=== PATIENT | female | born 1970 | race Caucasian/White ===

== ENCOUNTER 2017-01-11 22:32 | Inpatient (IN) | payer BC, OTHER ==
[~2017-01-11] VITALS: Ht 167.6 cm; Wt 91.0 kg
[~2017-01-11 22:32] MED LIST: AMLO1TAB93 PO; ASPI-535 PO; CLOP75TA27 PO; CRES10 PO; FENO145T25 PO; LANT3I SC; METF500T PO; NOVO3I SC; SITA50TA2 PO
[2017-01-12] VITALS (14 sets, daily range): BP systolic 116–189; BP diastolic 56–100; PULSE 67–80; RESP 16–18; TEMP 97.8; Ht 167.6 cm; Wt 91.0 kg
[2017-01-12] MEDS ORDERED: NITROGLYCERIN 2% 1 GM OINT PKT TD STA (01:43)
[2017-01-12] MEDS ORDERED: LORAZEPAM 2 MG INJ IV ONE ×2 (02:30→12:00)
[2017-01-12 02:35] LABS: BASOPHILS % 0.5 % (0.0-2.0); EOSINOPHILS # 0.1 10^3/ul (0.0-0.5); EOSINOPHILS % 0.9 % (0.0-7.0); HEMATOCRIT 42.9 % (37.0-47.0); HEMOGLOBIN 14.7 g/dl (12.0-16.0); LYMPHOCYTES # 1.5 10^3/ul (0.8-2.9); LYMPHOCYTES % 23.6 % (15.0-51.0); MEAN CORPUSCULAR HEMOGLOBIN 27.3 pg (29.0-33.0); MEAN CORPUSCULAR HGB CONC 34.2 g/dl (32.0-37.0); MEAN CORPUSCULAR VOLUME 79.8 fl (82.0-101.0); MEAN PLATELET VOLUME 10.4 fl (7.4-10.4); MONOCYTE # 0.4 10^3/ul (0.3-0.9); MONOCYTES % 6.6 % (0.0-11.0); NEUTROPHIL # 4.4 10^3/ul (1.6-7.5); NEUTROPHILS % 68.4 % (39.0-77.0); PLATELET COUNT 196 10^3/UL (140-440); RED BLOOD COUNT 5.38 10^6/ul (4.20-5.40); RED CELL DISTRIBUTION WIDTH 12.4 % (11.5-14.5); UNCORRECTED WBC 6.4 10^3/ul (4.8-10.8); WHITE BLOOD COUNT 6.4 10^3/ul (4.8-10.8)
[2017-01-12 02:42] LABS: INR 0.95; PROTIME 12.7 Sec (12.2-14.2)
[2017-01-12 02:43] LABS: ALBUMIN 3.1 g/dl (3.3-4.9); CONDITION 1; LH ANALYZER COMMENTS 1; PARTIAL THROMBOPLASTIN TIME 30.3 Sec (25.0-35.0); POTASSIUM 4.2 mmol/L (3.5-5.1)
[2017-01-12 02:45] LABS: CREATININE 0.97 mg/dl (0.44-1.00)
[2017-01-12 02:46] LABS: ALBUMIN/GLOBULIN RATIO 0.88; BILIRUBIN,INDIRECT 0.1 mg/dl (0-1.1); BILIRUBIN,TOTAL 0.1 mg/dl (0.2-1.3); CALCIUM 8.5 mg/dl (8.4-10.2); TOTAL PROTEIN 6.6 g/dl (6.1-8.1)
[2017-01-12 02:58] LABS: TROPONIN-I 0.013 ng/ml (0.00-0.12)
--- NOTE | 2017-01-12 03:26 | ERA ---
ER Documentation Chief Complaint Date/Time DATE: 01/12/17 TIME: 03:25 Chief Complaint CP X 1 WEEK WITH NECK PAIN, HX OPEN HEART SX HPI There is a 46 and valgus of the chest pain shortness of breath for the past week and grossly worse. Patient states she has a history of open heart surgery. Denies any fevers or chills. Denies any nausea vomiting the patient that she has not been on her home medications secondary to a lapse in her insurance. Pain is mild to moderate intensity, colicky in nature with no exacerbating or alleviating factors. ROS All systems reviewed and are negative except as per history of present illness. Medications Home Meds Active Scripts Insulin Aspart* (Novolog Insulin Pen*) 100 Unit/Ml Soln, 5 UNIT SC WITH MEALS for 30 Days, 1 Refill Prov:DWIGHT KNIGHT 09/20/15 Metformin Hcl (Glucophage) 500 Mg Tab, 1000 MG PO BID WITH MEALS for 30 Days, 1 Refill Prov:DWIGHT KNIGHT Reji 09/20/15 Sitagliptin* (Januvia*) 50 Mg Tab, 100 MG PO DAILY for 30 Days Prov:DWIGHT KNIGHT Reji 09/19/15 Insulin Glargine* (Lantus*) 100 Unit/Ml Soln, 27 UNIT SC DAILY for 30 Days, 1 Refill Prov:DWIGHT KNIGHT Reji 09/19/15 Fenofibrate Nanocrystallized* (Tricor*) 145 Mg Tab, 145 MG PO DAILY for 30 Days Prov:DWIGHT KNIGHT . 02/23/15 Rosuvastatin Calcium* (Crestor*) 10 Mg Tablet, 20 MG PO HS for 30 Days, TAB Prov:DWIGHT NKIGHT . 02/23/15 Reported Medications Amlodipine-Olmesartan (Scooter) 10-40 Mg Tablet, 1 TAB PO DAILY, TAB 02/22/15 Aspirin Ec (Aspir 81) 81 Mg Tablet.dr, 81 MG PO DAILY, TAB 02/22/15 Clopidogrel Bisulfate (Clopidogrel) 75 Mg Tablet, 75 MG PO DAILY, TAB 02/22/15 Allergies Allergies: Coded Allergies: Penicillins (Verified Allergy, Unknown, 02/22/15) erythromycin base (Unverified Allergy, Unknown, 02/22/15) PMhx/Soc History of Surgery: No Anesthesia Reaction: No Hx Neurological Disorder: No Hx Respiratory Disorders: No Hx Cardiac Disorders: No Hx Psychiatric Problems: No Hx Miscellaneous Medical Probl: Yes (htn,previous stroke x2) Hx Alcohol Use: No Hx Substance Use: No Hx Tobacco Use: No Physical Exam Vitals Vital Signs Date Time Temp Pulse Resp B/P Pulse Ox O2 Delivery O2 Flow Rate FiO2 01/12/17 01:56 Nasal Cannula 2 01/11/17 23:06 98.1 89 20 207/93 98 Physical Exam Const: [] Head: Atraumatic Eyes: Normal Conjunctiva ENT: Normal External Ears, Nose and Mouth. Neck: Full range of motion..~ No meningismus. Resp: Clear to auscultation bilaterally Cardio: Regular rate and rhythm, no murmurs Abd: Soft, non tender, non distended. Normal bowel sounds Skin: No petechiae or rashes Back: No midline or flank tenderness Ext: No cyanosis, or edema Neur: Awake and alert Psych: Normal Mood and Affect Result Diagram: 01/12/17 0150 01/12/17 0150 Results 24 hrs Laboratory Tests Test 01/12/17 01:50 Activated Partial Thromboplast Time 30.3Sec Alanine Aminotransferase (ALT/SGPT) 20IU/L Albumin 3.1g/dl Albumin/Globulin Ratio 0.88 Alkaline Phosphatase 193IU/L Anion Gap 13 Aspartate Amino Transf (AST/SGOT) 15IU/L B-Type Natriuretic Peptide 2000PG/ML Basophils # 0.010^3/ul Basophils % 0.5% Blood Morphology Comment Blood Urea Nitrogen 22mg/dl Calcium Level 8.5mg/dl Carbon Dioxide Level 23mmol/L Chloride Level 100mmol/L Creatinine 0.97mg/dl Direct Bilirubin 0.00mg/dl Eosinophils # 0.110^3/ul Eosinophils % 0.9% Globulin 3.50g/dl Glucose Level 637mg/dl Hematocrit 42.9% Hemoglobin 14.7g/dl INR International Normalized Ratio 0.95 Indirect Bilirubin 0.1mg/dl Lymphocytes # 1.510^3/ul Lymphocytes % 23.6% Mean Corpuscular Hemoglobin 27.3pg Mean Corpuscular Hemoglobin Concent 34.2g/dl Mean Corpuscular Volume 79.8fl Mean Platelet Volume 10.4fl Monocytes # 0.410^3/ul Monocytes % 6.6% Neutrophils # 4.410^3/ul Neutrophils % 68.4% Nucleated Red Blood Cells # 0.010^3/ul Nucleated Red Blood Cells % 0.0/100WBC Platelet Count 41805^3/UL Potassium Level 4.2mmol/L Prothrombin Time 12.7Sec Prothrombin Time Ratio 1.0 Red Blood Count 5.3810^6/ul Red Cell Distribution Width 12.4% Sodium Level 132mmol/L Total Bilirubin 0.1mg/dl Total Protein 6.6g/dl Troponin I 0.013ng/ml White Blood Count 6.410^3/ul Current Medications Medications (Trade) Dose Ordered Sig/Shelly Route PRN Reason Start Time Stop Time Status Last Admin Dose Admin Nitroglycerin (Nitroglycerin 2% Oint) 1 inch ONCE STAT TD 01/12/17 01:43 01/12/17 01:44 DC 01/12/17 02:02 Lorazepam (Ativan) 1 mg ONCE ONCE IV 01/12/17 02:30 01/12/17 02:33 DC 01/12/17 03:09 Procedures/MDM EKG: Rate/Rhythm: Normal Sinus Rhythm QRS, ST, T-waves: No changes consistent w/ acute ischemia Impression: No evidence of ischemia or arrhythmia Chest X-ray 1V Interpreted by me: Soft Tissue: No acute abnormalities Bones: No acute abnormalities Mediastinum/Cardiac Silhouette/Lungs: Increased fluid markings. Impression : CHF Patient's heart failure symptoms is concerning for acute decompensation and will require inpatient workup and monitoring. Further w/u for ischemia, arrhythmia, PE or dissection will be deferred to the inpatient team. Patient also has hyperglycemia but no evidence of DKA. Given subcutaneous insulin here in the emergency department Accepting Care Team: Current data and ongoing care discussed. Time: 3:28 AM Primary Provider: Hospitalist Consulting: [XOXOXO] Outstanding Data: none Departure Diagnosis: Primary Impression: Chest pain Qualified Code: I20.9 - Ischemic chest pain Additional Impression: Type 2 diabetes mellitus Qualified Code: E11.8 - Type 2 diabetes mellitus with complication, with long- term current use of insulin Condition: Serious ANAHY TORREZ Jan 12, 2017 03:26
[2017-01-12] MEDS ORDERED: INSULIN REGULAR, HUMAN 100 UNIT/1 ML 3ML VIAL SC ONE (03:30)
--- NOTE | 2017-01-12 05:12 | RADRPT ---
PROCEDURE: XR Chest. CLINICAL INDICATION: Chest pain. TECHNIQUE: AP Portable chest. COMPARISON: 09/17/2015 FINDINGS: There is moderate cardiomegaly. Prior median sternotomy is noted. The lungs are clear. The osseou s structures are unremarkable. IMPRESSION: No acute findings. RPTAT: HIKT .Jaya Palomino MD, MD Date Time Electronically viewed and signed by .Jaya Palomino MD, MD on 01/12/2017 05:11 .T/
[2017-01-12] MEDS ORDERED: INSULIN ASPART [NOVOLOG] 3 ML PEN SC STA (08:17)
[2017-01-12] MEDS ORDERED: ONDANSETRON 4 MG INJ IV PRN (08:30)
[2017-01-12] MEDS ORDERED: ALBUTEROL/IPRATROPIUM (NEB) 3 ML AMP HHN PRN (08:30)
[2017-01-12] MEDS ORDERED: NACL 0.9% 3 ML SYG IV SCH (08:30)
[2017-01-12] MEDS ORDERED: ACETAMINOPHEN 325 MG TAB PO PRN (08:30)
[2017-01-12] MEDS ORDERED: morphine 2 MG INJ IV PRN (08:30)
[2017-01-12] MEDS ORDERED: NITROGLYCERIN (SL) 0.4 MG TAB SL PRN (08:30)
[2017-01-12] MEDS ORDERED: ASPIRIN 81 MG TAB PO SCH (09:00)
[2017-01-12] MEDS: ENOXAPARIN 40 MG/0.4 ML SYG SC SCH (09:27)
[2017-01-12] MEDS: INSULIN GLARGINE [LANtus] 3 ML PEN SC SCH (09:30)
[2017-01-12 10:17] LABS: CK-MB 2.54 ng/ml (0.0-2.4)
[2017-01-12 10:20] LABS: TROPONIN-I 0.015 ng/ml (0.00-0.12)
--- NOTE | 2017-01-12 10:33 | HP ---
DATE OF ADMISSION: 01/12/2017 TIME SEEN: 6:00 a.m. CHIEF COMPLAINT: Chest pain. HISTORY OF PRESENT ILLNESS: The patient is a 46-year-old female with a history of hypertension, diab etes, CAD with CABG, old CVA, TIA, hypertension, dyslipidemia, obesity and medication noncompliance who presented to the emergency department with a chief complaint of chest pain. Her chest pain has been going on for over 1 week and described as sharp and tight. She also reported generalized weak ness and some shortness of breath. The patient was last admitted here in 2014 when she presented wi th right-sided weakness. At that time, the CT scan showed old CVA. At that time, she was also foun d to have uncontrolled diabetes. When the patient presented to the ER this time, she was found to be hypoglycemic with a glucose of 6 37 with no DKA. Her sodium was 132. Her BMP was 2000. Her first troponin was negative. She was given 8 units of regular insulin and admitted to the telemetry unit. REVIEW OF SYSTEMS: Negative except as mentioned in the HPI. PAST MEDICAL HISTORY: Coronary artery bypass graft in February of 2016 at [facility]. ALLERGIES AND HOME MEDICATIONS: Please see reconciled medications. PHYSICAL EXAMINATION: VITAL SIGNS: Stable. GENERAL: The patient was slightly sleepy but arousable. Answers questions appropriately. Not in a ny acute distress. HEENT: No obvious head deformity. Pupils are equal and reactive to light. Extraocular movements i ntact. CARDIOVASCULAR: Regular rate and rhythm. LUNGS: Clear. ABDOMEN: Soft, nontender, nondistended. Positive bowel sounds. LABORATORY: Pertinent positives as mentioned in the HPI. Chest x-ray: No active cardiopulmonary d isease. IMPRESSION: 1. Chest pain, need to rule out acute coronary syndrome. 2. Diabetes with severe hypoglycemia. 3. History of coronary artery disease with coronary artery bypass graft. 4. History of cerebrovascular accident. 5. Dyslipidemia. 6. Obesity. 7. History of noncompliance. 8. Elevated brain natriuretic peptide. PLAN: Continue telemetry monitoring. We will trend her troponins. Initial EKG with no ST-T wave a bnormalities. She will be placed on oxygen, beta ashley, statin, and as needed nitroglycerin and m orphine. We will obtain a 2D echo and cardiology consult given her cardiac history. She will be pl aced on insulin for better glycemic control. We will check her A1c and fasting lipid. She will be o n subcutaneous heparin for DVT prophylaxis. Further workup and management will be per clinical course. Dictated By: ANAHY CEDENO/JAZ Conf#: [id number] DID#: [id number]
[2017-01-12] MEDS ORDERED: GLUCOSE GEL 15 GRAM TUBE PO PRN ×2 (11:30)
[2017-01-12] MEDS ORDERED: GLUCAGON 1 MG INJ IM PRN (11:30)
[2017-01-12] MEDS ORDERED: GLUCOSE GEL 15 GRAM TUBE BUCCAL PRN (11:30)
[2017-01-12] MEDS ORDERED: DEXTROSE 50% 50 ML SYRINGE IV PRN ×2 (11:30)
--- NOTE | 2017-01-12 12:28 | PN ---
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 No diaphoresis palpitations syncope. Positive nausea. Denies any chest wall injury or rash. No alcohol use. States she is regular with her daily medications including aspirin. Last stress test was prior to bypass surgery. Additionally has issues tolerating meals with dysphagia. Additionally has chronic cough with possible nocturnal component. Denies any edema or calf pain. Additionally has right upper abdominal pain. -2 hrs ago seizure noted:Tonic-clonic witnessed by nurse. No loss of speech/ vision or postictal state. No incontinence or recent tongue bite. States she had 4 events yesterday. Her events are worse since she had cabg in May. May have had seizures as a childhood which improved until last year. O: vss; sr w age undetermined inf wall injury PE: No pallor/ JVD/ adenopathy Reg S1S2, no m/r/g. Midline scar c/d/i. + reproducible cp. Bs+ mild ruq tenderness. No Sen's. No r/r/g. Overwt No edema or Homans sign. A/P: 1. Chest pain, stable ro ACS. Probable musculoskeletal post CABG. 2. Chr cad; stable cont medical management 3. Chr hypertension 4. Probable GERD/upper airway cough syndrome 5. DM w possible gastroparesis 6. Ruq pain, possibly musculoskeletal. Review LFTs 7. Seizure vs pseudoseizure? Neuro eval. if second seizure occurs, will start Keppra. She does not drive a car. Problems: Exam/Review of Systems Vital Signs Vitals Vital Signs Date Time Temp Pulse Resp B/P Pulse Ox O2 Delivery O2 Flow Rate FiO2 01/12/17 12:12 69 01/12/17 11:17 98.0 18 184/81 99 01/12/17 05:33 Nasal Cannula 2.0 Results Result Diagram: 01/12/17 01501/12/17 0150 Results 24 hrs Laboratory Tests Test 01/12/17 01:50 01/12/17 03:34 01/12/17 07:37 01/12/17 09:30 Activated Partial Thromboplast Time 30.3 Alanine Aminotransferase (ALT/SGPT) 20 Albumin 3.1 L Albumin/Globulin Ratio 0.88 Alkaline Phosphatase 193 H Anion Gap 13 Aspartate Amino Transf (AST/SGOT) 15 B-Type Natriuretic Peptide 2000 H Basophils # 0.0 Basophils % 0.5 Blood Morphology Comment Blood Urea Nitrogen 22 H Calcium Level 8.5 Carbon Dioxide Level 23 Chloride Level 100 Creatinine 0.97 Direct Bilirubin 0.00 Eosinophils # 0.1 Eosinophils % 0.9 Globulin 3.50 H Glucose Level 637 *H Hematocrit 42.9 # Hemoglobin 14.7 # INR International Normalized Ratio 0.95 Indirect Bilirubin 0.1 Lymphocytes # 1.5 Lymphocytes % 23.6 Mean Corpuscular Hemoglobin 27.3 L Mean Corpuscular Hemoglobin Concent 34.2 Mean Corpuscular Volume 79.8 L Mean Platelet Volume 10.4 Monocytes # 0.4 Monocytes % 6.6 Neutrophils # 4.4 Neutrophils % 68.4 Nucleated Red Blood Cells # 0.0 Nucleated Red Blood Cells % 0.0 Platelet Count 196 Potassium Level 4.2 Prothrombin Time 12.7 Prothrombin Time Ratio 1.0 Red Blood Count 5.38 # Red Cell Distribution Width 12.4 Sodium Level 132 L Total Bilirubin 0.1 L Total Protein 6.6 Troponin I 0.013 0.015 White Blood Count 6.4 Bedside Glucose 509 *H 375 H Creatine Kinase 118 Creatine Kinase Index 2.2 Creatinine Kinase MB (Mass) 2.54 H Test 01/12/17 11:29 Bedside Glucose 249 H Medications Medications Current Medications Ondansetron HCl (Zofran Inj) 4 mg Q6H PRN IV NAUSEA AND/OR VOMITING; Start at 08:30 Aspirin (Aspirin) 81 mg DAILY PO Last administered on 01/12/17t 09:25; Admin Dose 81 MG; Start 01/12/17 at 09:00 Nitroglycerin (Nitroglycerin (Sl Tab) 0.4 Mg) 1 tab Q5M PRN SL CHEST PAIN; Start 01/12/17 at 08:30 Acetaminophen (Tylenol Tab) 650 mg Q6H PRN PO PAIN LEVEL 1-3 OR FEVER; Start at 08:30 Morphine Sulfate (morphine) 2 mg Q4H PRN IV PAIN LEVEL 7-10; Start 01/12/17 at 08:30 Enoxaparin Sodium (Lovenox) 40 mg DAILY SC Last administered on 01/12/17 09:27 ; Admin Dose 40 MG; Start 01/12/17 at 09:00 Insulin Glargine (Lantus) 20 unit DAILY@08 SC Last administered on 01/12/17 09 :30; Admin Dose 20 UNIT; Start 01/12/17 at 10:00 Diagnostic Test (Pha) (Accucheck) 1 ea 02 XX ; Start 01/13/17 at 02:00 Influenza Virus Vaccine (Fluzone) 0.5 ml ONCE ONCE IM* ; Start 01/13/17 at 10:00 ; Stop 01/13/17 at 10:01 Miscellaneous Information 1 ea NOTE XX ; Start 01/12/17 at 11:30 Glucose (Glutose) 15 gm Q15M PRN PO DECREASED GLUCOSE; Start 01/12/17 at 11:30 Glucose (Glutose) 22.5 gm Q15M PRN PO DECREASED GLUCOSE; Start 01/12/17 at 11: 30 Dextrose (D50w Syringe) 25 ml Q15M PRN IV DECREASED GLUCOSE; Start 01/12/17 at 11:30 Dextrose (D50w Syringe) 50 ml Q15M PRN IV DECREASED GLUCOSE; Start 01/12/17 at 11:30 Glucagon (Glucagen) 1 mg Q15M PRN IM DECREASED GLUCOSE; Start 01/12/17 at 11:30 Glucose (Glutose) 15 gm Q15M PRN BUCCAL DECREASED GLUCOSE; Start 01/12/17 at 11 :30 CARLEEN CAMARENA MD Jan 12, 2017 12:27
[2017-01-12] MEDS: INSULIN ASPART [NOVOLOG] 3 ML PEN SC SCH ×5 (12:31→20:50)
[2017-01-12] MEDS: FENOFIBRATE 145 MG TAB PO SCH (12:54)
[2017-01-12] MEDS: METOCLOPRAMIDE 5 MG TAB PO SCH ×2 (12:54→20:41)
[2017-01-12] MEDS: CLOPIDOGREL 75 MG TAB PO SCH (12:54)
[2017-01-12] MEDS ORDERED: LOSARTAN 25 MG TAB PO SCH (13:00)
[2017-01-12 14:13] LABS: CREATINE KINASE 120 IU/L (23-200)
[2017-01-12 14:24] LABS: CK-MB 2.26 ng/ml (0.0-2.4)
[2017-01-12 14:29] LABS: TROPONIN-I < 0.012 ng/ml (0.00-0.12)
--- NOTE | 2017-01-12 14:42 | RADRPT ---
PROCEDURE: CT Brain without. CLINICAL INDICATION: Seizure. TECHNIQUE: A CT of the brain was performed on multidetector high-resolution CT scanner utilizing a xial sections from the skull base through the vertex without contrast. The scan was reviewed in sof t tissue brain and high frequency resolution bone algorithm windows. Images were reviewed on a high -resolution PACS workstation. One or more the following does reduction techniques were utilized: Aut omated exposure control, adjustment of the mA/ or kV according to patient's size, or use of iterativ e reconstruction technique. The exam CTDI = 44.26 mGy and the DLP = 630.2 mGy-cm. COMPARISON: Brain CT 11/22/2014. Brain MRI 09/17/2015. FINDINGS: The ventricles and sulci are mildly prominent indicative of volume loss. There is no intracranial he morrhage, mass effect or midline shift. No abnormal intra-axial or extra-axial fluid collections ar e seen. The leal/white matter differentiation is preserved. Small old left cerebellar lacunar infarc t is noted. There are trace scattered foci of hypoattenuation in the white matter, which are nonspecific in etio logy but likely reflect chronic small vessel ischemic changes. There are trace intracranial vascula r calcifications consistent with atherosclerosis. The visualized paranasal sinuses are essentially c lear. IMPRESSION: 1. No acute intracranial hemorrhage, transcortical infarction or mass effect. 2. Trace intracranial atherosclerosis and chronic small vessel ischemic changes. 3. Small old left cerebellar lacunar infarct. 4. Mild generalized cerebral volume loss. RPTAT: HH .Celestine Jeffries MD, Date Time Electronically viewed and signed by .Celestine Jeffries MD, MD on 01/12/2017 14:42 .N/
--- NOTE | 2017-01-12 15:25 | CONS ---
Date/Time of Note Date/Time of Note DATE: 01/12/17 TIME: 15:16 Assessment/Plan Assessment/Plan Chief Complaint/Hosp Course Chest pain: Pain is actually left upper chest and has been constant for 10 months since surgery and is exacerbated by movement which makes it most consistent with MSK. Does not need further cardiac workup but would benefit from better BP control. ?Seizures: being evaluated. Question of pseudoseizures HTN: needs better control CAD s/p CABG 02/2016 DM -no further cardiac w/u necessary -continue ASA, plavix, lipitor -agree with adding amlodipine -increase to cozaar 50mg with extra 25mg now -hydralazine PRN Problems: Consultation Date/Type/Reason Admit Date/Time Jan 12, 2017 at 03:24 Date of Consultation: Jan 12, 2017 Type of Consultation: Cardiology Reason for Consultation Chest pain Referring Provider: CARLEEN CAMARENA MD Hx of Present Illness 46 yo F with a h/o CAD s/p CABG 02/2016 (per pt 6 vessel but she is not sure), seizures, HTN, DM, who presented with chest pain and seizures. She notes that since her surgery she has been having left upper chest wall pain around her shoulder. This is constant and intermittently severe for the past 10 months. It is exacerbated by movement but not physical activity. She is frustrated that she has been telling her naval architect specialist about it and it has not been worked up. She also notes SOB with activity but no orthopnea, PND, edema. She thinks her seizures are becoming frequent and she states that she has had them twice while here but were unwitnessed. per HPI Past Medical History per HPI Past Surgical History Past Surgical Hx: other Social History Smoking Status: Never smoker Exam/Review of Systems Vital Signs Vitals Vital Signs Date Time Temp Pulse Resp B/P Pulse Ox O2 Delivery O2 Flow Rate FiO2 01/12/17 12:12 69 01/12/17 11:17 98.0 18 184/81 99 01/12/17 05:33 Nasal Cannula 2.0 Exam Constitutional: alert, oriented Psych: anxiety, No nl mood/affect Head: atraumatic, normocephalic Neck: No jvd Respiratory: clear to auscultation, No crackles/rales Cardiovascular: edema (trace), regular rate and rhythm, No systolic murmur Gastrointestinal: non-tender, soft Neurological: nl mental status, nl speech Skin: No rash or lesions Results EKG: sinus, inferolateral TW inversions Result Diagram: 01/12/1714901/12/17 015 Results 24 hrs Laboratory Tests Test 01/12/17 01:50 01/12/17 03:34 01/12/17 07:37 01/12/17 09:30 Activated Partial Thromboplast Time 30.3 Alanine Aminotransferase (ALT/SGPT) 20 Albumin 3.1 L Albumin/Globulin Ratio 0.88 Alkaline Phosphatase 193 H Anion Gap 13 Aspartate Amino Transf (AST/SGOT) 15 B-Type Natriuretic Peptide 2000 H Basophils # 0.0 Basophils % 0.5 Blood Morphology Comment Blood Urea Nitrogen 22 H Calcium Level 8.5 Carbon Dioxide Level 23 Chloride Level 100 Creatinine 0.97 Direct Bilirubin 0.00 Eosinophils # 0.1 Eosinophils % 0.9 Globulin 3.50 H Glucose Level 637 *H Hematocrit 42.9 # Hemoglobin 14.7 # INR International Normalized Ratio 0.95 Indirect Bilirubin 0.1 Lymphocytes # 1.5 Lymphocytes % 23.6 Mean Corpuscular Hemoglobin 27.3 L Mean Corpuscular Hemoglobin Concent 34.2 Mean Corpuscular Volume 79.8 L Mean Platelet Volume 10.4 Monocytes # 0.4 Monocytes % 6.6 Neutrophils # 4.4 Neutrophils % 68.4 Nucleated Red Blood Cells # 0.0 Nucleated Red Blood Cells % 0.0 Platelet Count 196 Potassium Level 4.2 Prothrombin Time 12.7 Prothrombin Time Ratio 1.0 Red Blood Count 5.38 # Red Cell Distribution Width 12.4 Sodium Level 132 L Total Bilirubin 0.1 L Total Protein 6.6 Troponin I 0.013 0.015 White Blood Count 6.4 Bedside Glucose 509 *H 375 H Creatine Kinase 118 Creatine Kinase Index 2.2 Creatinine Kinase MB (Mass) 2.54 H Test 01/12/17 11:29 01/12/17 13:54 Bedside Glucose 249 H Creatine Kinase 120 Creatine Kinase Index 1.9 Creatinine Kinase MB (Mass) 2.26 Lipase 95 Troponin I < 0.012 Medications Medications Current Medications Ondansetron HCl (Zofran Inj) 4 mg Q6H PRN IV NAUSEA AND/OR VOMITING; Start at 08:30 Nitroglycerin (Nitroglycerin (Sl Tab) 0.4 Mg) 1 tab Q5M PRN SL CHEST PAIN; Start 01/12/17 at 08:30 Acetaminophen (Tylenol Tab) 650 mg Q6H PRN PO PAIN LEVEL 1-3 OR FEVER; Start at 08:30 Morphine Sulfate (morphine) 2 mg Q4H PRN IV PAIN LEVEL 7-10; Start 01/12/17 at 08:30 Enoxaparin Sodium (Lovenox) 40 mg DAILY SC Last administered on 01/12/17 09:27 ; Admin Dose 40 MG; Start 01/12/17 at 09:00 Insulin Glargine (Lantus) 20 unit DAILY@08 SC Last administered on 01/12/17 09 :30; Admin Dose 20 UNIT; Start 01/12/17 at 10:00 Diagnostic Test (Pha) (Accucheck) 1 ea 02 XX ; Start 01/13/17 at 02:00 Influenza Virus Vaccine (Fluzone) 0.5 ml ONCE ONCE IM* ; Start 01/13/17 at 10:00 ; Stop 01/13/17 at 10:01 Miscellaneous Information 1 ea NOTE XX ; Start 01/12/17 at 11:30 Glucose (Glutose) 15 gm Q15M PRN PO DECREASED GLUCOSE; Start 01/12/17 at 11:30 Glucose (Glutose) 22.5 gm Q15M PRN PO DECREASED GLUCOSE; Start 01/12/17 at 11: 30 Dextrose (D50w Syringe) 25 ml Q15M PRN IV DECREASED GLUCOSE; Start 01/12/17 at 11:30 Dextrose (D50w Syringe) 50 ml Q15M PRN IV DECREASED GLUCOSE; Start 01/12/17 at 11:30 Glucagon (Glucagen) 1 mg Q15M PRN IM DECREASED GLUCOSE; Start 01/12/17 at 11:30 Glucose (Glutose) 15 gm Q15M PRN BUCCAL DECREASED GLUCOSE; Start 01/12/17 at 11 :30 Pantoprazole (Protonix Tab) 40 mg DAILY@06 PO ; Start 01/13/17 at 06:00 Metoclopramide HCl (Reglan) 5 mg TID PO Last administered on 01/12/17 12:54; Admin Dose 5 MG; Start 01/12/17 at 13:00 Losartan Potassium (Cozaar) 25 mg DAILY PO Last administered on 01/12/17 12:54 ; Admin Dose 25 MG; Start 01/12/17 at 13:00 Clopidogrel Bisulfate (plaVIX) 75 mg DAILY PO Last administered on 01/12/17 12 :54; Admin Dose 75 MG; Start 01/12/17 at 13:00 Fenofibrate (Tricor) 145 mg DAILY PO Last administered on 01/12/17 12:54; Admin Dose 145 MG; Start 01/12/17 at 13:00 Atorvastatin Calcium (Lipitor) 80 mg HS PO ; Start 01/12/17 at 21:00 Aspirin (Halfprin) 81 mg DAILY PO ; Start 01/13/17 at 09:00 Clonidine (Catapres) 0.2 mg Q4H PRN PO ELEVATED SYSTOLIC BP; Start 01/12/17 at 13:00 Amlodipine Besylate (Norvasc) 10 mg DAILY PO ; Start 01/12/17 at 13:00 FERNANDO WOLFF Jan 12, 2017 15:25
[2017-01-12] MEDS ORDERED: hydrALAzine 20 MG INJ IV PRN (15:30)
[2017-01-12] MEDS ORDERED: LOSARTAN 25 MG TAB PO ONE (15:30)
[2017-01-12] MEDS: AMLODIPINE 10 MG TAB PO SCH (15:44)
--- NOTE | 2017-01-12 16:17 | RADRPT ---
Echocardiogram Report Patient Name: NAYA DUMONT Gender: Female Date: 1970 Study Date: 12-Jan-2017 Intercell Connector Placer: Marlo Stoll [facility] Location: [id number] Ref. Physician: ANAHY GILMAN Quality: Good Procedures: Transthoracic echocardiogram with complete 2D, M-Mode, and doppler examination. Indications: Congestive Heart Failure. 2D/M Mode Doppler Measurement Value Normal Ranges Measurement Value Normal Ranges LVIDd 2D 5.1 3.5 - 5.6 cm AV Peak Norm 1.2 m/sec LVIDs 2D 4.0 2.1 - 4.1 cm AV Peak PG 6.0 mmHg FS 2D 23.0 % LVOT Peak Norm 0.8 m/sec LVPWd 2D 1.4 0.6 - 1.1 cm LVOT Peak PG 2.0 mmHg IVSd 2D 1.3 0.6 - 1.1 cm MV E Peak Norm 0.6 m/sec IVS/LVPW 2D 0.9 MV A Peak Norm 0.8 m/sec AoR Diam 2D 3.1 2.0 - 3.7 cm MV E/A 0.8 LA/Ao 2D 1 0 - 1 MV Decel Time 327 msec EDV 2D 136.0 cm3 MV E/A 0.8 ESV 2D 62.1 cm3 LA Dimen 2D 4.1 2.3 - 4.0 cm Findings Left Ventricle: Normal left ventricular cavity size. Moderate concentric left ventricular hypertrophy. Mild global left ventricular systolic dysfunction. Ejection fraction is visually estimated at 4045 %. Tissue Doppler/Mitral Doppler indices are consistent with impaired relaxation (Stage I diastolic dysfunction). Right Ventricle: Normal right ventricular size. Normal right ventricular systolic function. Left Atrium: There is mild enlargement of left atrium. Right Atrium: The right atrium is normal in size. Mitral Valve: Mitral valve leaflets appear mildly thickened. Mild mitral annular calcification. Trace mitral regurgitation. Aortic Valve: No significant aortic stenosis or insufficiency. Aortic cusps appear mildly calcified. Tricuspid Valve: Normal appearance of the tricuspid valve. Unable to obtain RVSP due to minimal presence of tricuspid regurgitation. Pulmonic Valve: Pulmonic valve not well visualized. Pericardium: Small pericardial effusion. Aorta: Normal aortic root. IVC: Normal size and normal respiratory collapse consistent with normal right atrial pressure. Conclusions Normal left ventricular cavity size. Moderate concentric left ventricular hypertrophy. Mild global left ventricular systolic dysfunction. Ejection fraction is visually estimated at 40-45 %. Tissue Doppler/Mitral Doppler indices are consistent with impaired relaxation (Stage I diastolic dysfunction). No significant valvular stenosis or regurgitation seen. Small pericardial effusion. Unable to obtain RVSP due to minimal presence of tricuspid regurgitation. RA pressure is 3 mmHg. Electronically Signed By: Efrain Morejon 12-Jan-2017 16:17:06 -0800 Patient Name: NAYA DUMONT Study Date: 12-Jan-2017 [id number]
[2017-01-12 18:18] LABS: BARBITURATES NEGATIVE (NEGATIVE); BENZODIAZEPINES NEGATIVE (NEGATIVE); CANNABINOIDS NEGATIVE (NEGATIVE); COCAINE NEGATIVE (NEGATIVE); OPIATES NEGATIVE (NEGATIVE)
[2017-01-12] MEDS ORDERED: LEVETIRACETAM 500 MG TAB PO ONE (20:00)
[2017-01-12] MEDS ORDERED: LORAZEPAM 1 MG TAB PO PRN (20:00)
[2017-01-12] MEDS ORDERED: ATORVASTATIN 20 MG TAB PO SCH (21:00)
[2017-01-12] MEDS ORDERED: ATORVASTATIN 80 MG TAB PO SCH (21:00)
--- NOTE | 2017-01-12 21:09 | CONS ---
DATE OF ADMISSION: 01/12/2017 DATE OF CONSULTATION: 01/12/2017 TYPE OF CONSULTATION: Neurology. INITIAL COMPLAINT: The patient presented with chest pain. Thank you, Dr. Noonan, for your kind referral for evaluation of seizures. HISTORY OF PRESENT ILLNESS: The patient is a 46-year-old lady with past medical history of hyperten verito, diabetes, coronary artery disease status post CABG in February last year, also history of stroke, dyslipidemia, obesity, presented with complaint of chest pain. In the hospital, had episode of gen eralized seizure. On further questioning, she stated that she started having seizures following a C ABG surgery and she was put on Keppra which helped her seizure control. Secondary to change of insu [place] or secondary to losing insurance, she was out of her medications and she was getting seizures practically on a daily basis, at times several, up to 4 episodes per day. She does not drive. Acco rding to her , who is present at bedside, patient loses consciousness, gets generalized tonic -clonic seizures with eyes rolling back following with occasional incontinence and postictal tiredne ss and sleepiness. She stated that she had a couple of seizures as a child, but then they resolved and she did not have them until February last year. MEDICATIONS: Here she is on aspirin, losartan, Protonix, Lipitor 80, Reglan, Plavix, Tricor, Catapr es, Norvasc and insulin as well as Lovenox for DVT prevention. ALLERGIES: SHE IS ALLERGIC TO PENICILLIN AND . SOCIAL HISTORY: No alcohol, tobacco, drug use. FAMILY HISTORY: Hypertension, diabetes. LABORATORY DATA: The patient's labs show essentially normal CBC. Comprehensive metabolic panel beth ws elevated glucose in the 500 range. Alkaline phosphatase 193. BNP 2000, albumin 3.1. Rest withi n normal limits. Normal PT, PTT. Negative drug screen. Cardiology service is on case. The patien t had CAT scan of the head done today which showed an old left cerebellar lacunar infarct. REVIEW OF SYSTEMS: All pertinent positives included above in the history of present illness. PHYSICAL EXAMINATION: VITAL SIGNS: Temperature 98.0, 67 pulse, 169/82, blood pressure. GENERAL: Not in acute distress, lying in bed. HEENT: Normocephalic, atraumatic head. NECK: No carotid bruits. No thyromegaly. LUNGS: Clear to auscultation bilaterally. CARDIAC: Normal cardiac rhythm and sounds. ABDOMEN: Soft, nontender. EXTREMITIES: No cyanosis, clubbing or edema. NEUROLOGIC: She is awake, alert, and oriented x3 with fluent speech. Cranial nerve examination beth ws intact visual west bilaterally. Pupils are 2 mm bilaterally, fixed. Extraocular movements int act without nystagmus. Symmetrical face. Preserved facial strength and sensation. Tongue is in mi dline. Palate elevates symmetrically. Motor strength examination seems to be preserved in upper an d lower extremities. Normal bulk, tone, and strength. Sensory examination shows diminution of perc eption of vibration and pinprick in the feet. Deep tendon reflexes 2+ upper extremities, absent in lower extremities. Downgoing toes bilaterally. Coordination preserved on iunbwk-oh-tizwwr testing. No dysmetria or tremor. Gait was not assessed. IMPRESSION: Seizure disorder. I forgot to mention that patient stated that at times she may feel t hat her seizures are coming with pounding of the head. She stated that she was put on Keppra and it did help to some extent. I would restart her Keppra 500 mg twice daily. The medicine could be inc reased to a dose of 1000 mg twice daily after 2 weeks and if needed after another 2 weeks 1500 twice daily. I will obtain EEG. Would recommend outpatient followup with me in 2 to 4 weeks. Thank you very much for this interesting consultation. Continue current treatment. Patient did have history of strokes, so keep normotensive, euglycemic. Continue antiplatelets and statin. Patient was again advised not to drive. She said she stopped d riving. Dictated By: YISSEL MILES/JAZ Conf#: [id number] DID#: [id number]
[2017-01-13] VITALS: PULSE 89
[2017-01-13] MEDS ORDERED: ACCUCHECK XX SCH (02:00)
[2017-01-13 03:40] VITALS: BP 122/63; RESP 16
[2017-01-13 04:27] VITALS: PULSE 67
[2017-01-13] MEDS ORDERED: PANTOPRAZOLE (EC) 40 MG TAB PO SCH (06:00)
[2017-01-13 06:40] LABS: ALBUMIN 2.5 g/dl (3.3-4.9)
[2017-01-13 06:41] LABS: BASOPHILS % 0.4 % (0.0-2.0); EOSINOPHILS # 0.1 10^3/ul (0.0-0.5); EOSINOPHILS % 1.6 % (0.0-7.0); HEMATOCRIT 39.8 % (37.0-47.0); HEMOGLOBIN 13.8 g/dl (12.0-16.0); LYMPHOCYTES # 0.9 10^3/ul (0.8-2.9); LYMPHOCYTES % 14.1 % (15.0-51.0); MEAN CORPUSCULAR HEMOGLOBIN 27.7 pg (29.0-33.0); MEAN CORPUSCULAR HGB CONC 34.8 g/dl (32.0-37.0); MEAN CORPUSCULAR VOLUME 79.7 fl (82.0-101.0); MEAN PLATELET VOLUME 10.5 fl (7.4-10.4); MONOCYTE # 0.4 10^3/ul (0.3-0.9); MONOCYTES % 6.7 % (0.0-11.0); NEUTROPHIL # 4.8 10^3/ul (1.6-7.5); NEUTROPHILS % 77.2 % (39.0-77.0); PLATELET COUNT 187 10^3/UL (140-440); POTASSIUM 3.6 mmol/L (3.5-5.1); PROTIME 13.2 Sec (12.2-14.2); RED BLOOD COUNT 4.99 10^6/ul (4.20-5.40); RED CELL DISTRIBUTION WIDTH 12.6 % (11.5-14.5); UNCORRECTED WBC 6.2 10^3/ul (4.8-10.8); WHITE BLOOD COUNT 6.2 10^3/ul (4.8-10.8)
[2017-01-13 06:43] LABS: ALBUMIN/GLOBULIN RATIO 0.78; BILIRUBIN,INDIRECT 0.1 mg/dl (0-1.1); BILIRUBIN,TOTAL 0.1 mg/dl (0.2-1.3); CREATININE 1.14 mg/dl (0.44-1.00); TOTAL PROTEIN 5.7 g/dl (6.1-8.1)
[2017-01-13 06:44] LABS: CALCIUM 8.4 mg/dl (8.4-10.2); MAGNESIUM 1.8 mg/dl (1.7-2.5)
[2017-01-13 06:50] LABS: CHOL/HDL RATIO 10.6 RATIO
[2017-01-13 06:51] LABS: CONDITION 1; LH ANALYZER COMMENTS 1
[2017-01-13 07:13] LABS: THYROID STIMULATING HORMONE 3.21 MIU/L (0.465-4.680)
[2017-01-13 08:01] VITALS: BP 153/70; RESP 18
[2017-01-13] MEDS: CLOPIDOGREL 75 MG TAB PO SCH (08:19)
[2017-01-13] MEDS: FENOFIBRATE 145 MG TAB PO SCH (08:20)
[2017-01-13] MEDS: METOCLOPRAMIDE 5 MG TAB PO SCH ×2 (08:20→12:24)
[2017-01-13] MEDS: AMLODIPINE 10 MG TAB PO SCH (08:20)
[2017-01-13] MEDS: ENOXAPARIN 40 MG/0.4 ML SYG SC SCH (08:22)
[2017-01-13] MEDS: INSULIN GLARGINE [LANtus] 3 ML PEN SC SCH (08:23)
[2017-01-13] MEDS: INSULIN ASPART [NOVOLOG] 3 ML PEN SC SCH ×4 (08:29→12:36)
[2017-01-13 08:50] VITALS: PULSE 75
[2017-01-13] MEDS ORDERED: LOSARTAN 25 MG TAB PO SCH (09:00)
[2017-01-13] MEDS ORDERED: ASPIRIN (EC) 81 MG TAB PO SCH (09:00)
[2017-01-13] MEDS ORDERED: LEVETIRACETAM 500 MG TAB PO SCH (09:00)
[2017-01-13] MEDS ORDERED: INFLUENZA VIRUS VACCINE 0.5 ML SYG IM* ONE (10:00)
--- NOTE | 2017-01-13 11:57 | PDOCDIS ---
Discharge Instructions DIAGNOSIS Discharge Diagnosis: chostochondritis CONDITION Patient Condition: Good HOME CARE INSTRUCTIONS: Special Diet: 1800 ada ACTIVITY: Activity Restrictions: Slowly Increase Activity Rest between Activity Avoid heavy lifting Do not Drive FOLLOW UP/APPOINTMENTS Appointments PCP 1wk Cardio 3-4wks Neuro - Dr Murry 2wks CARLEEN CAMARENA MD Jan 13, 2017 11:57
[2017-01-13] MEDS ORDERED: LEVE-5 PO (12:00)
[2017-01-13] MEDS ORDERED: IBUPROFEN 600 MG TAB PO PRN (12:00)
[2017-01-13] MEDS ORDERED: PANT40TA4 PO (12:00)
[2017-01-13] MEDS ORDERED: METO5TAB11 PO (12:00)
[2017-01-13] MEDS ORDERED: IBUP-1542 PO (12:00)
--- NOTE | 2017-01-13 13:08 | PDOCDIS ---
Discharge Instructions DIAGNOSIS Discharge Diagnosis: costochondritis CONDITION Patient Condition: Good HOME CARE INSTRUCTIONS: Special Diet: 1800 ada ACTIVITY: Activity Restrictions: Slowly Increase Activity Rest between Activity Avoid heavy lifting Do not Drive FOLLOW UP/APPOINTMENTS Appointments PCP Dr Lester -1wk Regular Director Revenue -1month Dr Murry -2wks Referral/ appt endocrinology - 2wks ~ Dr Alonzo. CARLEEN CAMARENA MD Jan 13, 2017 13:08
[2017-01-13 13:14] VITALS: PULSE 73
--- NOTE | 2017-01-13 14:18 | DS ---
DATE OF ADMISSION: 01/12/2017 DATE OF DISCHARGE: 01/13/2017 PRIMARY CARE PHYSICIAN: Possibly Dr. Fabián Lester. CONSULTANTS: 1. Dr. Murry 2. Dr. Wolff DIAGNOSIS ON ADMISSION: 1. Atypical chest pain. 2. Seizures. 3. Diabetes. DISCHARGE DIAGNOSES: 1. Musculoskeletal chest pain. 2. Breakthrough seizure. 3. Diabetes. 4. Coronary artery disease. HOSPITAL COURSE: This is a 46-year-old female who had heart bypass surgery and she was admitted wit h chest pain and ruled out for acute coronary syndrome by enzymes, EKG symptoms. She has tenderness . This has been going on for about 10 months, apparently. This pain is probably musculoskeletal po st-CABG. I did reinforce that this discomfort can last for quite some time. I asked her to take so me rest, avoid heavy lifting, and take Motrin. Potentially even aggravated by the cold weather. Co nsider outpatient PT down the line. She is presently stable and fit for discharge. She was seen by cardiology additionally. In terms of coronary artery disease, bypass graft status. Stable. Continue aspirin, statin, blood pressure management. She states she has her medications at home. In terms of her diabetes, she will continue her insulin. She states she is adherent to her insulin treatment; however, her A1c is still 13. I have asked her to follow up with her primary, otherwise may need further assistance down the line. Potentially an endocrine referral. Potentially upper airway cough syndrome or GERD. Will start a proton pump inhibitor and Reglan. Co nsider autonomic dysfunction or gastroparesis down the line. Right upper quadrant pain, probably musculoskeletal. LFTs okay. No evidence of abnormal LFTs or ch olecystitis. Hypertension. Stable on Norvasc, ARB. Breakthrough seizure disorder. The patient has been off Keppra, states she ran out. Restarted Kepp ra at 500 b.i.d. The patient will see neurology in 2 weeks. Will consider up-titrating Keppra as n eeded. She does not drive a car. Does not drink alcohol regularly. The patient will have an EEG d one later today and results can be followed up as an outpatient. 2D echo read to have an ejection fraction of 40 to 45%, mild decreased global left ventricular systo lic function. Moderate concentric LVH. Chest x-ray: No acute process, no acute intrathoracic process. CAT scan of brain done shows a small old left cerebellar lacunar. Mild generalized cerebral volume loss, chronic small vessel ischemic changes. LABORATORY DATA: Sodium 137, potassium 3.6, chloride 105, bicarbonate 22, BUN of 20, creatinine 1.1 . Glucose of 212 to 290. A1c of 13.6, calcium is 8, magnesium 1.8, phosphorus of 4. Bilirubin zer o. AST and ALT of 17 and 23, alkaline phosphatase of 109, bilirubin 0.1, protein of 5.7, albumin of 2.5. Triglycerides 680, total of 318, LDL of 150, HDL of 30. TSH of 3.2. Lipase of 95. Troponins negative x3. INR 1. Urine tox screen negative. Urine negative. White cell count of 6, hemoglobin and hematocrit of 13 and 30. MCV low at 79, platelets of 180. DISCHARGE PLAN: 1. Home. Follow up with primary, Dr. Fabián Lester in 1 week. 2. 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 3. Appoint[address] with Dr. Yissel Murry in 2 weeks. 4. Referral appointment with endocrinology in 2 weeks. ACTIVITY: No heavy lifting, no driving. DURABLE MEDICAL EQUIPMENT: None. CODE STATUS: FULL. CONDITION: Good. BARRIERS TO DISCHARGE: None. PENDING TESTS: Final EEG [id number]. FUNCTIONAL STATUS: The patient is awake, alert, agrees to the plan of care. ALLERGIES 1. PENICILLIN. 2. ERYTHROMYCIN. MEDICATIONS: 1. Norvasc 10 daily. 2. Olmesartan 40 daily. 3. Ecotrin 81 daily. 4. Plavix 75 daily. 5. Tricor 145 daily. 6. NovoLog insulin 5 units with meals. 7. Lantus insulin 27 units at bedtime. 8. Metformin 1000 twice daily. 9. Crestor 20 mg at bedtime. 10. Januvia 100 daily. ALTERED MEDICATIONS: None. NEW MEDICATIONS: 1. Keppra 500 twice daily. 2. Reglan 5 mg 3 times daily, 1 week. 3. Protonix 40 daily. 4. Motrin 600 mg, 1 every 6 hours as needed for pain. Dictated By: CARLEEN BLOCK/JAZ Conf#: [id number] DID#: [id number] CC: FERNANDO WOLFF MD; Fabián Lester MD; ELIZABETH ZALDIVAR MD; YISSEL MURRY MD;*End*
--- NOTE | 2017-01-13 20:35 | NEURPT ---
DATE: 01/13/2017 ELECTROENCEPHALOGRAM INDICATION: A 46-year-old lady with seizures, started on Keppra. DESCRIPTION OF PROCEDURE: Routine EEG was recorded digitally. Wjmwo-wf-tkden and nirqk-gn-uim brina ages were recorded and reviewed. All impedances were measured and recorded. Cap electrodes were pl aced in accordance with International 10-20 system of electrode placement. FINDINGS: Symmetrically distributed background activity of low amplitude ranging in frequency betwe en 8 to 10 cycles per second was seen in the awake state. There is no definite driving in response to photic stimulation. When the patient gets drowsy and falls asleep, background rhythm gets slight ly less organized and intermixes with slower waves, 2 to 4 cycles per second. No definite epileptif orm transients were seen. No signs of ongoing electrographic seizures or lateralized slowing. IMPRESSION: Essentially normal study. Please correlate clinically. Dictated By: YISSEL MILES/JAZ Conf#: [id number] DID#: [id number]
== END 2017-01-13 15:07 | disposition home or self-care (01) | DRG 313 ==
LOC: E/R 22:32 → TEL 01-12 03:24
PROVIDERS: ADMIT Internal Medicine; ATTEND Internal Medicine
PROC: 3E00X4Z Introduction of Serum, Toxoid and Vaccine into Skin and Mucous Membranes, External Approach (ICD-10-PCS; principal; 2017-01-13)
DX: R07.89 Other chest pain (principal); I25.10 Atherosclerotic heart disease of native coronary artery without angina pectoris; I10 Essential (primary) hypertension; G40.909 Epilepsy, unspecified, not intractable, without status epilepticus; E11.9 Type 2 diabetes mellitus without complications; E78.5 Hyperlipidemia, unspecified; E66.9 Obesity, unspecified; Z95.1 Presence of aortocoronary bypass graft; Z68.32 Body mass index [BMI] 32.0-32.9, adult; Z79.4 Long term (current) use of insulin; Z23 Encounter for immunization
CPT/HCPCS: 36415; 70450; 71010; 80053; 80061; 80307; 82088; 82306; 82550; 82553; 82962; 83036; 83690; 83735; 83880; 84100; 84244; 84443; 84484; 84703; 85025; 85610; 85730; 90686; 93005; 93306; 95819; 96372; 96374; J0360; J1650; J1815; J2060

== ENCOUNTER 2017-07-17 23:44 | Inpatient (IN) | payer BC ==
[~2017-07-17] VITALS: Ht 152.4 cm; Wt 101.0 kg
[~2017-07-17 23:44] MED LIST changes: +IBUP-1542 PO; +LEVE-5 PO; +METO5TAB11 PO; +PANT40TA4 PO
[2017-07-17 23:54] VITALS: Ht 152.4 cm; Wt 101.0 kg
[2017-07-18] VITALS (18 sets, daily range): BP systolic 100–187; BP diastolic 57–86; PULSE 67–80; RESP 14–24; TEMP 98.6
--- NOTE | 2017-07-18 00:15 | ERA ---
ER Documentation Chief Complaint Date/Time DATE: 07/18/17 TIME: 00:15 Chief Complaint chest pain since 1pm today. seizures x 3 today, on Keppra HPI 47-year-old woman with multiple cardiac medical conditions presents with elevated blood pressure today despite using medications and sharp nonradiating chest pain similar previous episodes. She states she also had seizures despite using her Keppra. She has had no loss of bowel or bladder control, no fevers or chills, no vomiting or diarrhea. She denies shortness of breath, recent travel, calf or leg swelling, recent antibiotic use. ROS All systems reviewed and are negative except as per history of present illness. Medications Home Meds Active Scripts Pantoprazole* (Pantoprazole*) 40 Mg Tablet.dr, 40 MG PO DAILY@06 for 10 Days, # 10 Prov:CARLEEN CAMARENA MD 01/13/17 Metoclopramide Hcl* (Metoclopramide Hcl*) 5 Mg Tablet, 5 MG PO TID for 7 Days, # 20 TAB Prov:CARLEEN CAMARENA MD 01/13/17 Levetiracetam* (Keppra*) 500 Mg Tablet, 500 MG PO BID for 14 Days, #30 TAB Prov:CARLEEN CAMARENA MD 01/13/17 Ibuprofen* (Ibuprofen*) 600 Mg Tablet, 600 MG PO Q6H Y for MODERATE PAIN LEVEL 4 -6 for 14 Days, #30 TAB Prov:CARLEEN CAMARENA MD 01/13/17 Insulin Aspart* (Novolog Insulin Pen*) 100 Unit/Ml Soln, 5 UNIT SC WITH MEALS for 30 Days, 1 Refill Prov:DWIGHT KNIGHT. 09/20/15 Metformin Hcl (Glucophage) 500 Mg Tab, 1000 MG PO BID WITH MEALS for 30 Days, 1 Refill Prov:DWIGHT KNIGHT. 09/20/15 Sitagliptin* (Januvia*) 50 Mg Tab, 100 MG PO DAILY for 30 Days Prov:DWIGHT KNIGHT. 09/19/15 Insulin Glargine* (Lantus*) 100 Unit/Ml Soln, 27 UNIT SC DAILY for 30 Days, 1 Refill Prov:DWIGHT KNIGHT 09/19/15 Fenofibrate Nanocrystallized* (Tricor*) 145 Mg Tab, 145 MG PO DAILY for 30 Days Prov:DWIGHT KNIGHT. 02/23/15 Rosuvastatin Calcium* (Crestor*) 10 Mg Tablet, 20 MG PO HS for 30 Days, TAB Prov:DWIGHT KNIGHT. 02/23/15 Reported Medications Amlodipine-Olmesartan (Scooter) 10-40 Mg Tablet, 1 TAB PO DAILY, TAB 02/22/15 Aspirin Ec (Aspir 81) 81 Mg Tablet.dr, 81 MG PO DAILY, TAB 02/22/15 Clopidogrel Bisulfate (Clopidogrel) 75 Mg Tablet, 75 MG PO DAILY, TAB 02/22/15 Allergies Allergies: Coded Allergies: Penicillins (Verified Allergy, Unknown, 07/17/17) erythromycin base (Unverified Allergy, Unknown, 07/17/17) PMhx/Soc Seizures (pseudoseizures?) usually controlled with Keppra, previous ND post CABG , coronary artery disease, congestive heart failure with a EF of 45%, hypertension, diabetes mellitus, depression, obesity, anxiety History of Surgery: Yes (CABG; LAPAROSCOPY; ) Anesthesia Reaction: No Hx Neurological Disorder: Yes (SEIZURES; STROKE ) Hx Respiratory Disorders: Yes (ASTHMA ) Hx Cardiac Disorders: Yes (CAD; HTN) Hx Psychiatric Problems: No Hx Miscellaneous Medical Probl: No Hx Alcohol Use: No Hx Substance Use: No Hx Tobacco Use: No FmHx Family History: No diabetes Physical Exam Vitals Vital Signs Date Time Temp Pulse Resp B/P Pulse Ox O2 Delivery O2 Flow Rate FiO2 07/18/17 02:09 98.6 78 18 168/100 100 07/17/17 23:54 97.0 78 18 100 Physical Exam GENERAL: Well-developed, well-nourished, well-hydrated, anxious HEENT: Moist mucous membranes, pink conjunctiva, no cervical spine tenderness or step-off deformities, no goiter, no jaundice or icterus, extraocular movements intact without pain. No submandibular induration, and no pharyngeal erythema NEURO: Alert and oriented 3, cranial nerves II through XII intact bilaterally, pupils equal round reactive to light, no focal deficits or facial asymmetry, sensation intact distally Strength 5/5 in upper and lower extremities bilaterally CARDIAC: Regular rate and rhythm, no murmurs rubs or gallops LUNGS: Clear bilaterally no wheezing crackles or stridor ABDOMEN: Soft nontender, no guarding, no rigidity, no rebound, no psoas sign no obturator sign. Normoactive bowel sounds SKIN: Warm and dry to touch, no abrasions, contusions, or hematomas, no lacerations, no ecchymosis, no target lesions, and without ulcers EXTREMITIES: No clubbing cyanosis or edema, calves are bilaterally symmetrical, no Homans sign, no popliteal cord sign. Distal pulses equal and bilateral PSYCH: Anxious Result Diagram: 07/18/175607/18/1756 Results 24 hrs Laboratory Tests Test 07/18/17 00:57 White Blood Count 6.210^3/ul Red Blood Count 5.0810^6/ul Hemoglobin 14.1g/dl Hematocrit 39.9% Mean Corpuscular Volume 78.5fl Mean Corpuscular Hemoglobin 27.8pg Mean Corpuscular Hemoglobin Concent 35.3g/dl Red Cell Distribution Width 11.8% Platelet Count 51148^3/UL Mean Platelet Volume 12.0fl Neutrophils % 60.8% Lymphocytes % 30.2% Monocytes % 6.5% Eosinophils % 1.5% Basophils % 0.5% Nucleated Red Blood Cells % 0.0/100WBC Neutrophils # (Manual) 410^3/ul Lymphocytes # 1.910^3/ul Monocytes # 0.410^3/ul Eosinophils # 0.110^3/ul Basophils # 0.010^3/ul Nucleated Red Blood Cells # 0.010^3/ul Sodium Level 129mmol/L Potassium Level 4.3mmol/L Chloride Level 92mmol/L Carbon Dioxide Level 24mmol/L Anion Gap 17 Blood Urea Nitrogen 21mg/dl Creatinine 0.89mg/dl Glucose Level 559mg/dl Calcium Level 9.2mg/dl Total Bilirubin 0.3mg/dl Direct Bilirubin 0.00mg/dl Indirect Bilirubin 0.3mg/dl Aspartate Amino Transf (AST/SGOT) 14IU/L Alanine Aminotransferase (ALT/SGPT) 20IU/L Alkaline Phosphatase 201IU/L Troponin I < 0.012ng/ml Total Protein 7.0g/dl Albumin 3.5g/dl Globulin 3.50g/dl Albumin/Globulin Ratio 1.00 Lipase 420U/L Current Medications Medications (Trade) Dose Ordered Sig/Shelly Route PRN Reason Start Time Stop Time Status Last Admin Dose Admin Sodium Chloride (NS) 1,000 ml @ 1,000 mls/hr Q1H STAT IV 07/18/17 00:19 07/18/17 01:18 DC 07/18/17 00:54 Lorazepam (Ativan) 0.5 mg ONCE ONCE IV 07/18/17 00:30 07/18/17 00:31 DC 07/18/17 00:54 Insulin Human Lispro (Humalog) 16 unit ONCE STAT SC 07/18/17 02:26 07/18/17 02:29 DC 07/18/17 02:46 Aspirin (Aspirin) 324 mg ONCE ONCE PO 07/18/17 03:00 07/18/17 03:01 DC 07/18/17 03:02 Procedures/MDM IV line was established patient was placed on geometry teacher rhythm strip revealed a sinus rhythm at about 70 bpm. Patient was afebrile. I administered lorazepam 0.5 mg IV 1 and 1 L normal saline. I also administered aspirin 324 mg p.o. for cardioprotective measures EKG performed, read by me: 72 bpm, normal sinus rhythm, normal axis, no acute ST segment changes, narrow QRS complex, with good R-wave progression in precordial leads. CBC and electrolytes are normal, liver function tests are normal, troponin was negative. Patient's blood sugar elevated over 500. I administered lispro insulin 16 units subcutaneous injection 1 for acute hyperglycemia. Patient is without complaints of chest pain at this time. Patient will be admitted to telemetry setting for continued medical management and cardiology consultation. Patient has no signs or symptoms of congestive heart failure last echocardiogram was within normal limits. I do not suspect diastolic or systolic heart failure. Departure Diagnosis: Primary Impression: Chest pain Qualified Code: R07.9 - Chest pain, unspecified type Additional Impression: Hypertensive emergency Condition: KAREN Riso MD Jul 18, 2017 00:15
[2017-07-18] MEDS ORDERED: SOD CHLORIDE 0.9% 1,000 ML IV STA (00:19)
[2017-07-18] MEDS ORDERED: LORAZEPAM 2 MG INJ IV ONE (00:30)
[2017-07-18 01:34] LABS: ALANINE AMINOTRANSFERASE 20 IU/L (13-69); ALBUMIN 3.5 g/dl (3.3-4.9); ALKALINE PHOSPHATASE 201 IU/L (42-121); ANION GAP 17 (8-16); ASPARTATE AMINO TRANSFERASE 14 IU/L (15-46); BILIRUBIN,INDIRECT 0.3 mg/dl (0-1.1); BILIRUBIN,TOTAL 0.3 mg/dl (0.2-1.3); BLOOD UREA NITROGEN 21 mg/dl (7-20); CALCIUM 9.2 mg/dl (8.4-10.2); CARBON DIOXIDE 24 mmol/L (21-31); CHLORIDE 92 mmol/L (97-110); CREATININE 0.89 mg/dl (0.44-1.00); POTASSIUM 4.3 mmol/L (3.5-5.1); SODIUM 129 mmol/L (135-144)
[2017-07-18 01:42] LABS: BASOPHILS % 0.5 % (0.0-2.0); EOSINOPHILS # 0.1 10^3/ul (0.0-0.5); EOSINOPHILS % 1.5 % (0.0-7.0); HEMATOCRIT 39.9 % (37.0-47.0); HEMOGLOBIN 14.1 g/dl (12.0-16.0); LYMPHOCYTES # 1.9 10^3/ul (0.8-2.9); LYMPHOCYTES % 30.2 % (15.0-51.0); MEAN CORPUSCULAR HEMOGLOBIN 27.8 pg (29.0-33.0); MEAN CORPUSCULAR HGB CONC 35.3 g/dl (32.0-37.0); MEAN CORPUSCULAR VOLUME 78.5 fl (82.0-101.0); MONOCYTE # 0.4 10^3/ul (0.3-0.9); MONOCYTES % 6.5 % (0.0-11.0); NEUTROPHILS % 60.8 % (39.0-77.0); PLATELET COUNT 248 10^3/UL (140-415); RED BLOOD COUNT 5.08 10^6/ul (4.20-5.40); RED CELL DISTRIBUTION WIDTH 11.8 % (11.5-14.5); WHITE BLOOD COUNT 6.2 10^3/ul (4.8-10.8)
[2017-07-18 02:14] LABS: GLUCOSE 559 mg/dl (70-220); TROPONIN-I < 0.012 ng/ml (0.00-0.12)
[2017-07-18] MEDS ORDERED: INSULIN LISPRO 100 UNIT/ML VIAL SC STA (02:26)
[2017-07-18] MEDS ORDERED: ASPIRIN 81 MG TAB PO ONE (03:00)
[2017-07-18] MEDS: LORAZEPAM 2 MG INJ IV PRN ×2 (05:30→15:17)
[2017-07-18] MEDS ORDERED: ACETAMINOPHEN 325 MG TAB PO PRN (06:30)
[2017-07-18] MEDS ORDERED: ALBUTEROL/IPRATROPIUM (NEB) 3 ML AMP HHN PRN (06:30)
[2017-07-18] MEDS ORDERED: morphine 2 MG INJ IV PRN (06:30)
[2017-07-18] MEDS ORDERED: NACL 0.9% 3 ML SYG IV SCH (06:30)
[2017-07-18] MEDS ORDERED: ONDANSETRON 4 MG INJ IV PRN (06:30)
[2017-07-18] MEDS ORDERED: GLUCOSE GEL 15 GRAM TUBE PO PRN ×2 (07:00)
[2017-07-18] MEDS ORDERED: GLUCOSE GEL 15 GRAM TUBE BUCCAL PRN (07:00)
[2017-07-18] MEDS ORDERED: GLUCAGON 1 MG INJ IM PRN (07:00)
[2017-07-18] MEDS ORDERED: DEXTROSE 50% 50 ML SYRINGE IV PRN ×2 (07:00)
--- NOTE | 2017-07-18 08:51 | HP ---
Date/Time of Note Date/Time of Note DATE: 07/18/17 TIME: 08:40 Assessment/Plan VTE Prophylaxis VTE Prophylaxis Intervention: heparin Assessment/Plan Assessment/Plan 1. Epilepsy: Most likely hyperglycemia induced -We will continue her Keppra but will increase dose. Ativan as needed -Continue insulin for better glycemic control -Correct electrolytes as needed -Consider brain imaging based on clinical course. -Neurology consult 2. Diabetes with hyperglycemia -Continue insulin with adjustment as needed 3. Chest pain, rule out ACS -EKG was no ST-T wave abnormality and first troponin is negative. -We will send additional troponins -Supplemental oxygen, antiplatelet, statin, as needed nitro morphine -2D echo and cardiology consult 4. History of CAD with stent and CABG -See #3 5. Hyponatremia -Correct electrolytes as needed 6. Pancreatitis: Patient was some elevation in lipase -If patient complains of abdominal pain, will obtain right upper quadrant ultrasound and I will keep her n.p.o. -Repeat labs in a.m. HPI/ROS Admit Date/Time Admit Date/Time Jul 18, 2017 at 05:18 Hx of Present Illness This is a 47-year-old female with history of CAD with stents, history of CABG, seizure disorder and a diabetes who presented emergency department complaining of seizure and a chest pain. She states she has had 3 seizures prior to arrival to the ER. Last seizure prior to this was 7 months ago. She states she had compliant with her Keppra. Further chest pain is concerned, it is a left-sided, with no radiation, no associated shortness of breath, nausea or vomiting. When patient presented to the ER, she was hyperglycemic with a blood glucose of around 560, sodium 139, BUN 21, creatinine 0.89, alk phos 201 and a lipase 420. She was given 16 units of insulin lispro. She stated she is compliant with her diabetic medications. Once patient was admitted, she had 2 episodes of seizure. Currently she is actually sleepy but arousable. She stated she still has left-sided chest pain with less intensity. . PMH/Family/Social Past Medical History Medical History: coronary artery disease, diabetes Past Surgical History Past Surgical Hx: coronary bypass surgery, other Social History Alcohol Use: none Smoking Status: Never smoker Drug Use: cocaine Exam/Review of Systems Vital Signs Vitals Vital Signs Date Time Temp Pulse Resp B/P Pulse Ox O2 Delivery O2 Flow Rate FiO2 8/21/17 08:00 73 07/18/17 07:00 98.6 16 185/86 100 Room Air Exam Constitutional: other (Sleepy but arousable. No acute distress) Head: atraumatic, normocephalic Eyes: EOMI, PERRL Respiratory: clear to auscultation, normal air movement Cardiovascular: nl pulses, regular rate and rhythm Gastrointestinal: non-tender, soft Extremities: normal pulses Neurological: lethargic Labs Result Diagram: 07/18/175607/18/1756 Medications Medications Current Medications Lorazepam (Ativan) 2 mg Q1H PRN IV SEIZURES Last administered on 07/18/17t 05: 30; Admin Dose 2 MG; Start 07/18/17 at 05:30 Ondansetron HCl (Zofran Inj) 4 mg Q6H PRN IV NAUSEA AND/OR VOMITING; Start at 06:30 Nitroglycerin (Nitroglycerin (Sl Tab) 0.4 Mg) 1 tab Q5M PRN SL CHEST PAIN; Start 07/18/17 at 06:30 Acetaminophen (Tylenol Tab) 650 mg Q6H PRN PO PAIN LEVEL 1-3 OR FEVER; Start at 06:30 Morphine Sulfate (morphine) 2 mg Q4H PRN IV PAIN LEVEL 7-10; Start 07/18/17 at 06:30 Enoxaparin Sodium (Lovenox) 40 mg DAILY SC ; Start 07/18/17 at 09:00 Diagnostic Test (Pha) (Accu-Chek) 1 ea 02 XX ; Start 07/19/17 at 02:00 Aspirin (Halfprin) 81 mg DAILY PO ; Start 07/18/17 at 09:00 Clopidogrel Bisulfate (plaVIX) 75 mg DAILY PO ; Start 07/18/17 at 09:00 Fenofibrate (Tricor) 145 mg DAILY PO ; Start 07/18/17 at 09:00 Insulin Glargine (Lantus) 27 unit DAILY SC ; Start 07/18/17 at 09:00 Levetiracetam (Keppra) 500 mg BID PO ; Start 07/18/17 at 09:00 Pantoprazole (Protonix Tab) 40 mg DAILY@06 PO ; Start 07/19/17 at 06:00 Atorvastatin Calcium (Lipitor) 80 mg HS PO ; Start 07/18/17 at 21:00 Linagliptin (Tradjenta) 5 mg DAILY PO ; Start 07/18/17 at 09:00 Diagnostic Test (Pha) (Accu-Chek) 1 ea 02 XX ; Start 07/19/17 at 02:00 Miscellaneous Information 1 ea NOTE XX ; Start 07/18/17 at 07:00 Glucose (Glutose) 15 gm Q15M PRN PO DECREASED GLUCOSE; Start 07/18/17 at 07:00 Glucose (Glutose) 22.5 gm Q15M PRN PO DECREASED GLUCOSE; Start 07/18/17 at 07: 00 Dextrose (D50w Syringe) 25 ml Q15M PRN IV DECREASED GLUCOSE; Start 07/18/17 at 07:00 Dextrose (D50w Syringe) 50 ml Q15M PRN IV DECREASED GLUCOSE; Start 07/18/17 at 07:00 Glucagon (Glucagen) 1 mg Q15M PRN IM DECREASED GLUCOSE; Start 07/18/17 at 07:00 Glucose (Glutose) 15 gm Q15M PRN BUCCAL DECREASED GLUCOSE; Start 07/18/17 at 07 :00 Hydralazine HCl (Apresoline) 10 mg Q4H PRN IV SBP > 160; Start 07/18/17 at 08: 00 Losartan Potassium (Cozaar) 100 mg DAILY PO ; Start 07/18/17 at 09:00 Amlodipine Besylate (Norvasc) 10 mg DAILY PO ; Start 07/18/17 at 09:00 ANAHY GILMAN MD Jul 18, 2017 08:50
[2017-07-18 08:54] LABS: BASOPHILS % 0.4 % (0.0-2.0); EOSINOPHILS # 0.1 10^3/ul (0.0-0.5); EOSINOPHILS % 2.1 % (0.0-7.0); HEMATOCRIT 36.7 % (37.0-47.0); LYMPHOCYTES # 1.6 10^3/ul (0.8-2.9); LYMPHOCYTES % 31.4 % (15.0-51.0); MEAN CORPUSCULAR HEMOGLOBIN 27.8 pg (29.0-33.0); MEAN CORPUSCULAR HGB CONC 35.4 g/dl (32.0-37.0); MEAN CORPUSCULAR VOLUME 78.4 fl (82.0-101.0); MEAN PLATELET VOLUME 11.7 fl (7.4-10.4); MONOCYTE # 0.4 10^3/ul (0.3-0.9); MONOCYTES % 7.8 % (0.0-11.0); NEUTROPHILS % 57.5 % (39.0-77.0); PLATELET COUNT 228 10^3/UL (140-415); RED BLOOD COUNT 4.68 10^6/ul (4.20-5.40); RED CELL DISTRIBUTION WIDTH 11.9 % (11.5-14.5); WHITE BLOOD COUNT 5.1 10^3/ul (4.8-10.8)
[2017-07-18] MEDS ORDERED: LOSARTAN 50 MG TAB PO SCH (09:00)
[2017-07-18] MEDS ORDERED: AMLODIPINE 10 MG TAB PO SCH (09:00)
[2017-07-18] MEDS ORDERED: LEVETIRACETAM 500 MG TAB PO SCH ×3 (09:00→21:00)
[2017-07-18] MEDS ORDERED: AMLODIPINE 5 MG TAB PO SCH (09:00)
[2017-07-18] MEDS ORDERED: AMLODIPINE OLMESARTAN PO SCH (09:00)
[2017-07-18] MEDS: ASPIRIN (EC) 81 MG TAB PO SCH (09:02)
[2017-07-18] MEDS: INSULIN GLARGINE [LANtus] 3 ML PEN SC SCH (09:03)
[2017-07-18] MEDS: ENOXAPARIN 40 MG/0.4 ML SYG SC SCH (09:03)
[2017-07-18] MEDS: INSULIN ASPART [NOVOLOG] 3 ML PEN SC SCH ×7 (09:05→21:40)
[2017-07-18] MEDS: FENOFIBRATE 145 MG TAB PO SCH (09:10)
[2017-07-18] MEDS: LINAGLIPTIN 5 MG TABLET PO SCH (09:10)
[2017-07-18] MEDS: CLOPIDOGREL 75 MG TAB PO SCH (09:11)
[2017-07-18 09:13] LABS: ALANINE AMINOTRANSFERASE 26 IU/L (13-69); ALBUMIN/GLOBULIN RATIO 0.88; ALKALINE PHOSPHATASE 133 IU/L (42-121); ANION GAP 11 (8-16); ASPARTATE AMINO TRANSFERASE 14 IU/L (15-46); BILIRUBIN,INDIRECT 0.2 mg/dl (0-1.1); BILIRUBIN,TOTAL 0.2 mg/dl (0.2-1.3); BLOOD UREA NITROGEN 17 mg/dl (7-20); CALCIUM 8.6 mg/dl (8.4-10.2); CARBON DIOXIDE 23 mmol/L (21-31); CHLORIDE 101 mmol/L (97-110); CREATININE 0.89 mg/dl (0.44-1.00); GLUCOSE 239 mg/dl (70-220); HDL CHOLESTEROL 33 mg/dl (34-88); POTASSIUM 3.7 mmol/L (3.5-5.1); SODIUM 131 mmol/L (135-144); TOTAL PROTEIN 6.4 g/dl (6.1-8.1)
[2017-07-18 09:23] LABS: CHOL/HDL RATIO 10.8 RATIO; CHOLESTEROL 357 mg/dl (100-200)
[2017-07-18 10:01] LABS: TRIGLYCERIDES 1155 mg/dl (0-149)
--- NOTE | 2017-07-18 15:28 | RADRPT ---
PROCEDURE: XR Chest. CLINICAL INDICATION: rule out infiltrate TECHNIQUE: Single frontal view of the chest was obtained COMPARISON: Chest x-ray 01/12/2017 FINDINGS: Mediasternotomy wires and mediastinal clips are redemonstrated. There are very low lung volumes with persistent mild elevation of the right hemidiaphragm. The cardiac silhouette remains markedly enlarged. There is new diffuse hazy opacification of the left lung, concerning for pneumonia. There is crowding of lung markings and mild increased basilar atelectasis in the right lung. No pneumothorax or definite pleural effusion is identified. There are degenerative changes of the visualized spine. IMPRESSION: 1. Low lung volumes. 2. New hazy opacification of the left lung, concerning for pneumonia. 3. Cardiomegaly. 4. Prior median sternotomy. RPTAT: TT Physician Halle Date Time Electronically viewed and signed by Physician Halle on 07/18/2017 15:27 SAADIA/
--- NOTE | 2017-07-18 17:11 | RADRPT ---
Echocardiogram Report Patient Name: NAYA DUMONT Gender: Female Date: 1970 Study Date: 18-Jul-2017 Adjustment Examiner: Ryan Hay [facility] Location: 3301 Ref. Physician: ANAHY GILMAN Quality: Technically Difficult Study Procedures: Transthoracic echocardiogram with complete 2D, M-Mode, and doppler examination. Indications: Chest Pain. 2D/M Mode Doppler Measurement Value Normal Ranges Measurement Value Normal Ranges LVIDd 2D 5.2 3.5 - 5.6 cm AV Peak Norm 1.5 m/sec LVIDs 2D 3.6 2.1 - 4.1 cm AV Peak PG 9.0 mmHg FS 2D 30.7 % LVOT Peak Norm 1.0 m/sec LVPWd 2D 1.3 0.6 - 1.1 cm LVOT Peak PG 4.0 mmHg IVSd 2D 1.3 0.6 - 1.1 cm MV E Peak Norm 0.7 m/sec IVS/LVPW 2D 1.0 MV A Peak Norm 1.0 m/sec AoR Diam 2D 2.8 2.0 - 3.7 cm MV E/A 0.7 LA/Ao 2D 2 0 - 1 MV Decel Time 285 msec EDV 2D 139.0 cm3 MV E/A 0.7 ESV 2D 46.3 cm3 LA Dimen 2D 4.2 2.3 - 4.0 cm Findings Left Ventricle: Normal left ventricular cavity size. Mild concentric left ventricular hypertrophy. Ejection fraction is visually estimated at 3540 %. Tissue Doppler/Mitral Doppler indices are consistent with impaired relaxation (Stage I diastolic dysfunction). Multiple segmental wall motion abnormalities. Right Ventricle: Normal right ventricular size. Normal right ventricular systolic function. Left Atrium: There is mild enlargement of left atrium. Right Atrium: The right atrium is normal in size. Mitral Valve: Mitral valve leaflets appear mildly thickened. Mild mitral annular calcification. Trace mitral regurgitation. Aortic Valve: Normal appearance of the aortic valve. No significant aortic stenosis or insufficiency. Tricuspid Valve: Normal appearance of the tricuspid valve. Unable to obtain RVSP due to minimal presence of tricuspid regurgitation. There is trace tricuspid regurgitation. Pulmonic Valve: Pulmonic valve not well visualized. There is trace pulmonic regurgitation. Pericardium: Normal pericardium with no significant pericardial effusion. Aorta: Normal aortic root. IVC: Normal size and normal respiratory collapse consistent with normal right atrial pressure. Conclusions 1.Normal left ventricular cavity size. Mild concentric left ventricular hypertrophy. Ejection fraction is visually estimated at 35-40 %. Tissue Doppler/Mitral Doppler indices are consistent with impaired relaxation (Stage I diastolic dysfunction). Multiple segmental wall motion abnormalities. 2.There is mild enlargement of left atrium. 3.Mitral valve leaflets appear mildly thickened. Mild mitral annular calcification. Trace mitral regurgitation. 4.Normal appearance of the aortic valve. No significant aortic stenosis or insufficiency. 5.Normal appearance of the tricuspid valve. Unable to obtain RVSP due to minimal presence of tricuspid regurgitation. There is trace tricuspid regurgitation. Electronically Signed By: Darin Marinelli 18-Jul-2017 17:10:37 -5400 Patient Name: NAYA DUMONT Study Date: 18-Jul-2017 [id number]
[2017-07-18] MEDS ORDERED: VALPROATE INJ 1,000 MG in SOD CHLORIDE 0.9% 100 ML IVPB ONE (18:30)
[2017-07-18] MEDS: LEVETIRACETAM IVPB SCH (21:31)
[2017-07-18] MEDS: SOD CHLORIDE 0.9% IVPB SCH (21:31)
[2017-07-18] MEDS: ATORVASTATIN 80 MG TAB PO SCH (21:33)
[2017-07-19] VITALS (25 sets, daily range): BP systolic 101–210; BP diastolic 55–159; PULSE 61–81; RESP 14–26
[2017-07-19] MEDS: ACCU-CHEK XX SCH (02:00)
[2017-07-19] MEDS ORDERED: ACCU-CHEK XX SCH (02:00)
--- NOTE | 2017-07-19 04:36 | CONS ---
DATE OF ADMISSION: 07/18/2017 DATE OF CONSULTATION: 07/18/2017 HISTORY OF PRESENT ILLNESS: The patient is 47 years old with a past medical history of seizure disorder. The patient was on Keppra, noncompliance with her medication, per her brother's history. The patient upon admission, her blood sugar is around 500 with the patient with noncompliance with her medical advice. The patient states she was on Keppra 500 in recent months . She had a seizure in [place]. The patient did not follow any medical advice at that time. MEDICATION: The patient's current medications include: 1. Protonix 40 mg once a day. 2. Lipitor 80 mg once a day. 3. Keppra 1000 b.i.d. 4. Lovenox 40 mg subcutaneous once a day. 5. Aspirin 81 mg once a day. 6. Plavix 75 mg once a day. 7. Tricor 145 mg once a day. 8. Lantus 27 mg once a day. 9. Tradjenta 5 mg once a day. 10. Cozaar 100 mg once a day. 11. Norvasc 10 mg once a day. 12. Zofran 4 mg q. 4 hours as needed. 13. Morphine 2 mg q. 4 hours as needed. 14. 50 mg as needed. 15. Ativan 2 mg as needed for seizure. PHYSICAL EXAMINATION: GENERAL: On exam today, the patient is alert, awake, oriented, following simple commands. HEART: Regular rate and rhythm. LUNGS: Equal breath sounds. CRANIAL NERVES: Cranial nerve II: Pupils equal on both sides, reactive to light. Cranial nerves II, IV and : Extraocular muscles intact. Cranial nerve V: Equal sensation to face. Cranial nerve VII: Symmetrical face. Cranial nerve VIII: Decreased hearing bilaterally. Cranial nerves IX and X: Elevates palate. Cranial nerve XI: Elevates shoulder 5/5. Cranial nerve XII: With straight tongue. Motor exam: Decrease right hand [employer] 4+/5. Right hip flexion is 4+/5. Sensation decreased for glove and sock area for light touch and temperature. Coordination: [id number] test intact. IMPRESSION AND PLAN: 1. The patient is 47 years old with underlying seizure disorder. We kept the patient on Ativan as needed for seizure activity. We are going to increase the Keppra to 1250 mg b.i.d. Keep the patient under seizure precautions. Follow up the patient with MRI over as well as EEG. 2. The patient has hyperglycemia which could precipitate the seizure activity. 3. Uncontrollable blood sugar with the patient educated about the importance to control her blood sugar to avoid more seizure activity. 4. History of coronary artery disease, stent and CABG. 5. Electrolyte imbalance which could precipitate a seizure as well. 6. I advised the patient to follow the medications and compliance with her medicines. 7. Underlying peripheral neuropathy, probably secondary to diabetes. Again, thank you. Dictated By: Zaire Braun MD /[email or web address] /Document#: [id number]
[2017-07-19 07:14] LABS: BASOPHILS % 0.6 % (0.0-2.0); EOSINOPHILS # 0.1 10^3/ul (0.0-0.5); HEMATOCRIT 35.3 % (37.0-47.0); LYMPHOCYTES # 1.7 10^3/ul (0.8-2.9); LYMPHOCYTES % 34.1 % (15.0-51.0); MEAN CORPUSCULAR HEMOGLOBIN 27.1 pg (29.0-33.0); MEAN CORPUSCULAR VOLUME 79.7 fl (82.0-101.0); MEAN PLATELET VOLUME 11.6 fl (7.4-10.4); MONOCYTE # 0.4 10^3/ul (0.3-0.9); MONOCYTES % 7.9 % (0.0-11.0); PLATELET COUNT 215 10^3/UL (140-415); RED BLOOD COUNT 4.43 10^6/ul (4.20-5.40); RED CELL DISTRIBUTION WIDTH 12.5 % (11.5-14.5)
[2017-07-19] MEDS: LORAZEPAM 2 MG INJ IV PRN ×3 (07:35→11:59)
[2017-07-19 07:40] LABS: CALCIUM 8.5 mg/dl (8.4-10.2); CREATININE 1.31 mg/dl (0.44-1.00); PHOSPHORUS 5.6 mg/dl (2.5-4.9); POTASSIUM 3.9 mmol/L (3.5-5.1)
[2017-07-19] MEDS: PANTOPRAZOLE (EC) 40 MG TAB PO SCH (08:00)
[2017-07-19] MEDS: INSULIN ASPART [NOVOLOG] 3 ML PEN SC SCH ×7 (09:02→21:38)
[2017-07-19] MEDS: INSULIN GLARGINE [LANtus] 3 ML PEN SC SCH (09:04)
[2017-07-19] MEDS: CLOPIDOGREL 75 MG TAB PO SCH (09:05)
[2017-07-19] MEDS: ASPIRIN (EC) 81 MG TAB PO SCH (09:05)
[2017-07-19] MEDS: ENOXAPARIN 40 MG/0.4 ML SYG SC SCH (09:05)
[2017-07-19] MEDS: FENOFIBRATE 145 MG TAB PO SCH (09:05)
[2017-07-19] MEDS: LINAGLIPTIN 5 MG TABLET PO SCH (09:06)
[2017-07-19] MEDS: SOD CHLORIDE 0.9% IVPB SCH ×2 (09:15→22:06)
[2017-07-19] MEDS: LEVETIRACETAM IVPB SCH ×2 (09:15→22:06)
[2017-07-19 09:31] LABS: ALBUMIN 2.6 g/dl (3.3-4.9); BILIRUBIN,INDIRECT 0.1 mg/dl (0-1.1); BILIRUBIN,TOTAL 0.1 mg/dl (0.2-1.3); TOTAL PROTEIN 5.8 g/dl (6.1-8.1)
[2017-07-19] MEDS ORDERED: VALPROATE INJ 1,000 MG in SOD CHLORIDE 0.9% 100 ML IVPB ONE (11:00)
--- NOTE | 2017-07-19 11:45 | RADRPT ---
PROCEDURE: MR Brain without contrast. CLINICAL INDICATION: Seizures TECHNIQUE: An MRI of the brain was attempted, however, only a GRE coronal sequence and axial diffu verito sequence were acquired. The patient cannot tolerate the complete study. COMPARISON: Correlation head CT 01/12/2017 FINDINGS: No evidence of recent infarct or midline shift. No large parenchymal hemorrhage visualized. IMPRESSION: Abbreviated exam as the patient could not tolerate the complete study. Consider repeat imaging when the patient is more stable. No evidence of recent infarct of midline shift. No large parenchymal hemorrhage seen. RPTAT: AA .Vince Garcia MD, MD Date Time Electronically viewed and signed by .Vince Garcia MD, on 07/19/2017 11:44 .T/
--- NOTE | 2017-07-19 14:23 | PN ---
Date/Time of Note Date/Time of Note DATE: 07/19/17 TIME: 14:19 Assessment/Plan VTE Prophylaxis VTE Prophylaxis Intervention: LMWH Lines/Catheters IV Catheter Type (from Nrs): Saline Lock Urinary Cath still in place: No Assessment/Plan Chief Complaint/Hosp Course 47 yo female with epilepsy, severe obesity, CAD s/p CABG, DMII who presented with seizures and hyperglycemia Seizures, epilepsy: - Continue Keppra 1250 - Depakote was added given recurrent seizures, management per Dr Mike from neurology - Ativan 2 mg PRN seizures - MRI unremarkable - EEG pending DMII with poor control: - Continue basal/bolus insulin titration - Check A1C CAD sp CABG - Continue aspirin and statin ERIBERTO: - Unclear etiology - Trend creatinine for now and hold ARB and amlodipine ICU care Discharge plan pending Problems: Subjective 24 Hr Interval Summary Free Text/Dictation Continued seizure activity, received ativan MRI performed, poor quality but nothing major seen Seen this AM was sleepy s/p benzos Started on depakote in addition to higher dose Keppra 1250 BID Moved to ICU last night Exam/Review of Systems Vital Signs Vitals Vital Signs Date Time Temp Pulse Resp B/P Pulse Ox O2 Delivery O2 Flow Rate FiO2 07/19/17 12:00 97.6 68 153/80 94 Room Air 07/19/17 10:00 21 1.0 Intake and Output 07/18/17 07/18/17 07/19/17 15:00 23:00 07:00 Intake Total 662.5 ml Output Total 325 ml 200 ml Balance 337.5 ml -200 ml Exam Somnulent appearing, easily arousable, interactive No distress Full movement x 4 Results Result Diagram: 07/19/17 0637 07/19/17 0637 Results 24 hrs Laboratory Tests Test 07/18/17 15:13 07/18/17 17:30 07/18/17 21:30 07/19/17 02:48 Bedside Glucose 163 163 264 H 213 Test 07/19/17 06:37 07/19/17 08:57 07/19/17 12:02 White Blood Count 5.0 Red Blood Count 4.43 Hemoglobin 12.0 Hematocrit 35.3 L Mean Corpuscular Volume 79.7 L Mean Corpuscular Hemoglobin 27.1 L Mean Corpuscular Hemoglobin Concent 34.0 Red Cell Distribution Width 12.5 Platelet Count 215 Mean Platelet Volume 11.6 H Neutrophils % 55.0 Lymphocytes % 34.1 Monocytes % 7.9 Eosinophils % 2.0 Basophils % 0.6 Nucleated Red Blood Cells % 0.0 Neutrophils # (Manual) 3 Lymphocytes # 1.7 Monocytes # 0.4 Eosinophils # 0.1 Basophils # 0.0 Nucleated Red Blood Cells # 0.0 Sodium Level 133 L Potassium Level 3.9 Chloride Level 104 Carbon Dioxide Level 22 Anion Gap 11 Blood Urea Nitrogen 27 H Creatinine 1.31 H Glucose Level 230 H Hemoglobin A1c Calcium Level 8.5 Phosphorus Level 5.6 H Magnesium Level 2.0 Total Bilirubin 0.1 L Direct Bilirubin 0.00 Indirect Bilirubin 0.1 Aspartate Amino Transf (AST/SGOT) 18 Alanine Aminotransferase (ALT/SGPT) 19 Alkaline Phosphatase 102 Total Protein 5.8 L Albumin 2.6 L Bedside Glucose 285 H 177 Medications Medications Current Medications Lorazepam (Ativan) 2 mg Q1H PRN IV SEIZURES Last administered on 07/19/17 11: 59; Admin Dose 2 MG; Start 07/18/17 at 05:30 Ondansetron HCl (Zofran Inj) 4 mg Q6H PRN IV NAUSEA AND/OR VOMITING; Start at 06:30 Nitroglycerin (Nitroglycerin (Sl Tab) 0.4 Mg) 1 tab Q5M PRN SL CHEST PAIN; Start 07/18/17 at 06:30 Acetaminophen (Tylenol Tab) 650 mg Q6H PRN PO PAIN LEVEL 1-3 OR FEVER; Start at 06:30 Morphine Sulfate (morphine) 2 mg Q4H PRN IV PAIN LEVEL 7-10; Start 07/18/17 at 06:30 Enoxaparin Sodium (Lovenox) 40 mg DAILY SC Last administered on 07/19/17 09:05 ; Admin Dose 40 MG; Start 07/18/17 at 09:00 Aspirin (Halfprin) 81 mg DAILY PO Last administered on 07/19/17 09:05; Admin Dose 81 MG; Start 07/18/17 at 09:00 Clopidogrel Bisulfate (plaVIX) 75 mg DAILY PO Last administered on 07/19/17 09 :05; Admin Dose 75 MG; Start 07/18/17 at 09:00 Fenofibrate (Tricor) 145 mg DAILY PO Last administered on 07/19/17 09:05; Admin Dose 145 MG; Start 07/18/17 at 09:00 Insulin Glargine (Lantus) 27 unit DAILY SC Last administered on 07/19/17 09:04 ; Admin Dose 27 UNIT; Start 07/18/17 at 09:00 Pantoprazole (Protonix Tab) 40 mg DAILY@06 PO Last administered on 07/19/17 08 :00; Admin Dose 40 MG; Start 07/19/17 at 06:00 Atorvastatin Calcium (Lipitor) 80 mg HS PO Last administered on 07/18/17 21:33 ; Admin Dose 80 MG; Start 07/18/17 at 21:00 Linagliptin (Tradjenta) 5 mg DAILY PO Last administered on 07/19/17 09:06; Admin Dose 5 MG; Start 07/18/17 at 09:00 Diagnostic Test (Pha) (Accu-Chek) 1 ea 02 XX ; Start 07/19/17 at 02:00 Miscellaneous Information 1 ea NOTE XX ; Start 07/18/17 at 07:00 Glucose (Glutose) 15 gm Q15M PRN PO DECREASED GLUCOSE; Start 07/18/17 at 07:00 Glucose (Glutose) 22.5 gm Q15M PRN PO DECREASED GLUCOSE; Start 07/18/17 at 07: 00 Dextrose (D50w Syringe) 25 ml Q15M PRN IV DECREASED GLUCOSE; Start 07/18/17 at 07:00 Dextrose (D50w Syringe) 50 ml Q15M PRN IV DECREASED GLUCOSE; Start 07/18/17 at 07:00 Glucagon (Glucagen) 1 mg Q15M PRN IM DECREASED GLUCOSE; Start 07/18/17 at 07:00 Glucose (Glutose) 15 gm Q15M PRN BUCCAL DECREASED GLUCOSE; Start 07/18/17 at 07 :00 Hydralazine HCl (Apresoline) 10 mg Q4H PRN IV SBP > 160; Start 07/18/17 at 08: 00 Losartan Potassium (Cozaar) 100 mg DAILY PO Last administered on 07/18/17 10: 32; Admin Dose 100 MG; Start 07/18/17 at 09:00; Status Future Hold Amlodipine Besylate 10 mg 10 mg DAILY PO Last administered on 07/18/17 09:12; Admin Dose 10 MG; Start 07/18/17 at 09:00; Status Future Hold Levetiracetam/ Sodium Chloride (Keppra Iv/NS) 112.5 ml @ 450 mls/hr Q12 IVPB Last administered on 07/19/17t 09:15; Admin Dose 450 MLS/HR; Start 07/18/17 at 21:00 CATHERINE ALCANTAR MD Jul 19, 2017 14:23
[2017-07-19] MEDS: hydrALAzine 20 MG INJ IV PRN (21:28)
[2017-07-19] MEDS: ATORVASTATIN 80 MG TAB PO SCH (21:28)
[2017-07-19] MEDS: VALPROATE INJ 1,000 MG in SOD CHLORIDE 0.9% 100 ML IVPB SCH (21:29)
[2017-07-20] VITALS (21 sets, daily range): BP systolic 101–167; BP diastolic 56–85; PULSE 65–85; RESP 15–27
[2017-07-20] MEDS: ACCU-CHEK XX SCH (01:56)
[2017-07-20] MEDS: VALPROATE INJ 1,000 MG in SOD CHLORIDE 0.9% 100 ML IVPB SCH ×3 (06:21→17:38)
[2017-07-20] MEDS: PANTOPRAZOLE (EC) 40 MG TAB PO SCH (06:22)
[2017-07-20 06:56] LABS: BASOPHILS % 0.4 % (0.0-2.0); EOSINOPHILS # 0.1 10^3/ul (0.0-0.5); EOSINOPHILS % 1.5 % (0.0-7.0); HEMATOCRIT 38.1 % (37.0-47.0); HEMOGLOBIN 12.7 g/dl (12.0-16.0); LYMPHOCYTES # 1.2 10^3/ul (0.8-2.9); LYMPHOCYTES % 26.3 % (15.0-51.0); MEAN CORPUSCULAR HGB CONC 33.3 g/dl (32.0-37.0); MEAN CORPUSCULAR VOLUME 80.9 fl (82.0-101.0); MEAN PLATELET VOLUME 11.3 fl (7.4-10.4); MONOCYTE # 0.3 10^3/ul (0.3-0.9); MONOCYTES % 7.1 % (0.0-11.0); NEUTROPHILS % 63.8 % (39.0-77.0); PLATELET COUNT 229 10^3/UL (140-415); RED BLOOD COUNT 4.71 10^6/ul (4.20-5.40); RED CELL DISTRIBUTION WIDTH 12.6 % (11.5-14.5); WHITE BLOOD COUNT 4.5 10^3/ul (4.8-10.8)
[2017-07-20 07:02] LABS: ALBUMIN 2.7 g/dl (3.3-4.9); ALBUMIN/GLOBULIN RATIO 0.77; BILIRUBIN,INDIRECT 0.1 mg/dl (0-1.1); BILIRUBIN,TOTAL 0.1 mg/dl (0.2-1.3); CALCIUM 8.6 mg/dl (8.4-10.2); CREATININE 1.07 mg/dl (0.44-1.00); TOTAL PROTEIN 6.2 g/dl (6.1-8.1)
--- NOTE | 2017-07-20 07:02 | NEURPT ---
DATE: 07/19/2017 HISTORY: The patient is 47 years old with a past medical history of hyperglycemia, coronary artery disease, stent, CABG. Patient with seizure-like activity. FINDINGS: The patient's EEG 10-20 International electrode system . Bilateral occipital alpha waves 8-9 Hz, medium size amplitude and symmetric bilateral, some electromyogram artifact recorded. Photic stimulation done did not elicit a drive. Some sharp waves at the left temporal area. This a normal electroencephalogram with sharp waves in the left temporal area consistent with a postictal status. No epileptiform discharge or seizure activity. IMPRESSION: This is a normal electroencephalogram with sharp waves and generalized slowing consistent with a history of underlying postictal status. No seizure activity is recorded. Followup EEG may be needed if clinically indicated. Dictated By: Zaire Braun MD /[email or web address]/[email or web address] /Document#: [id number]
[2017-07-20] MEDS: INSULIN ASPART [NOVOLOG] 3 ML PEN SC SCH ×7 (07:35→21:09)
[2017-07-20] MEDS: ENOXAPARIN 40 MG/0.4 ML SYG SC SCH (08:30)
[2017-07-20] MEDS: INSULIN GLARGINE [LANtus] 3 ML PEN SC SCH (08:32)
[2017-07-20] MEDS: LEVETIRACETAM IVPB SCH ×2 (08:33→21:07)
[2017-07-20] MEDS: LINAGLIPTIN 5 MG TABLET PO SCH (08:33)
[2017-07-20] MEDS: SOD CHLORIDE 0.9% IVPB SCH ×2 (08:33→21:07)
[2017-07-20] MEDS: FENOFIBRATE 145 MG TAB PO SCH (08:34)
[2017-07-20] MEDS: CLOPIDOGREL 75 MG TAB PO SCH (08:34)
[2017-07-20] MEDS: ASPIRIN (EC) 81 MG TAB PO SCH (08:34)
[2017-07-20] MEDS: PHENOBARBITAL 32.4 MG TAB PO SCH ×2 (13:41→21:08)
[2017-07-20] MEDS ORDERED: LORAZEPAM 2 MG INJ IV PRN (16:00)
--- NOTE | 2017-07-20 16:33 | PN ---
Date/Time of Note Date/Time of Note DATE: 07/20/17 TIME: 16:29 Assessment/Plan VTE Prophylaxis VTE Prophylaxis Intervention: LMWH Lines/Catheters IV Catheter Type (from [facility]): Peripheral IV Urinary Cath still in place: No Assessment/Plan Chief Complaint/Hosp Course 47 yo female with epilepsy, severe obesity, CAD s/p CABG, DMII who presented with seizures and hyperglycemia. Seizures perhaps volitional/malingering Seizures, epilepsy: - Unclear if these are real, but now favor that patient is having pseudoseizure vs malingering given her mood symptoms - Continue Keppra 1250 - Depakote was added given recurrent seizures, management per Dr Mike from neurology - Ativan 2 mg PRN seizures - MRI unremarkable - EEG pending Depression:- - Consult telepsych pending DMII with poor control: - Continue basal/bolus insulin titration - Check A1C CAD sp CABG - Continue aspirin and statin ERIBERTO: - Unclear etiology - Trend creatinine for now and hold ARB and amlodipine ICU care Discharge plan pending Problems: Subjective 24 Hr Interval Summary Free Text/Dictation Patient with numerous further episodes of questionable seizure. I did not witness any of these. However per staff who did witness, seemed somewhat volitional. Patient calling nurse into room prior, whole body shaking while maintaining normal mentation and vital signs Started on phenobarbital by Dr Acevedo Had a long discuss with the patient today. Seems to be depressed about her physical state. Feels unsteady on her feet chronically and worried she is a burden to family. Says she "always keeps everything inside", and since leaving her family's house for hospital she feels free to let "her emotions out". Became very tearful. She denies suicidal ideation. Requests to speak to psychiatrist. Exam/Review of Systems Vital Signs Vitals Vital Signs Date Time Temp Pulse Resp B/P Pulse Ox O2 Delivery O2 Flow Rate FiO2 07/20/17 16:00 97.6 78 26 144/68 93 Room Air 07/19/17 11:00 2.0 Intake and Output 07/19/17 07/19/17 07/20/17 15:00 23:00 07:00 Intake Total 342.5 ml Output Total 500 ml 200 ml Balance -157.5 ml -200 ml Results Result Diagram: 07/20/17 0611 07/20/17 0611 Results 24 hrs Laboratory Tests Test 07/19/17 17:32 07/19/17 21:35 07/20/17 01:55 07/20/17 06:11 Bedside Glucose 92 145 122 White Blood Count 4.5 L Red Blood Count 4.71 Hemoglobin 12.7 Hematocrit 38.1 Mean Corpuscular Volume 80.9 L Mean Corpuscular Hemoglobin 27.0 L Mean Corpuscular Hemoglobin Concent 33.3 Red Cell Distribution Width 12.6 Platelet Count 229 Mean Platelet Volume 11.3 H Neutrophils % 63.8 Lymphocytes % 26.3 Monocytes % 7.1 Eosinophils % 1.5 Basophils % 0.4 Nucleated Red Blood Cells % 0.0 Neutrophils # (Manual) 3 Lymphocytes # 1.2 Monocytes # 0.3 Eosinophils # 0.1 Basophils # 0.0 Nucleated Red Blood Cells # 0.0 Sodium Level 140 Potassium Level 4.0 Chloride Level 106 Carbon Dioxide Level 22 Anion Gap 16 Blood Urea Nitrogen 25 H Creatinine 1.07 H Glucose Level 134 # Hemoglobin A1c Calcium Level 8.6 Total Bilirubin 0.1 L Direct Bilirubin 0.00 Indirect Bilirubin 0.1 Aspartate Amino Transf (AST/SGOT) 13 L Alanine Aminotransferase (ALT/SGPT) 22 Alkaline Phosphatase 97 Total Protein 6.2 Albumin 2.7 L Globulin 3.50 H Albumin/Globulin Ratio 0.77 Test 07/20/17 08:26 07/20/17 12:28 Bedside Glucose 126 116 Medications Medications Current Medications Lorazepam (Ativan) 2 mg Q1H PRN IV SEIZURES Last administered on 07/19/17 11: 59; Admin Dose 2 MG; Start 07/18/17 at 05:30 Ondansetron HCl (Zofran Inj) 4 mg Q6H PRN IV NAUSEA AND/OR VOMITING; Start at 06:30 Nitroglycerin (Nitroglycerin (Sl Tab) 0.4 Mg) 1 tab Q5M PRN SL CHEST PAIN; Start 07/18/17 at 06:30 Acetaminophen (Tylenol Tab) 650 mg Q6H PRN PO PAIN LEVEL 1-3 OR FEVER; Start at 06:30 Morphine Sulfate (morphine) 2 mg Q4H PRN IV PAIN LEVEL 7-10; Start 07/18/17 at 06:30 Enoxaparin Sodium (Lovenox) 40 mg DAILY SC Last administered on 07/20/17 08:30 ; Admin Dose 40 MG; Start 07/18/17 at 09:00 Aspirin (Halfprin) 81 mg DAILY PO Last administered on 07/20/17 08:34; Admin Dose 81 MG; Start 07/18/17 at 09:00 Clopidogrel Bisulfate (plaVIX) 75 mg DAILY PO Last administered on 07/20/17 08 :34; Admin Dose 75 MG; Start 07/18/17 at 09:00 Fenofibrate (Tricor) 145 mg DAILY PO Last administered on 07/20/17 08:34; Admin Dose 145 MG; Start 07/18/17 at 09:00 Insulin Glargine (Lantus) 27 unit DAILY SC Last administered on 07/20/17 08:32 ; Admin Dose 27 UNIT; Start 07/18/17 at 09:00 Pantoprazole (Protonix Tab) 40 mg DAILY@06 PO Last administered on 07/20/17 06 :22; Admin Dose 40 MG; Start 07/19/17 at 06:00 Atorvastatin Calcium (Lipitor) 80 mg HS PO Last administered on 07/19/17 21:28 ; Admin Dose 80 MG; Start 07/18/17 at 21:00 Linagliptin (Tradjenta) 5 mg DAILY PO Last administered on 07/20/17 08:33; Admin Dose 5 MG; Start 07/18/17 at 09:00 Diagnostic Test (Pha) (Accu-Chek) 1 ea 02 XX ; Start 07/19/17 at 02:00 Miscellaneous Information 1 ea NOTE XX ; Start 07/18/17 at 07:00 Glucose (Glutose) 15 gm Q15M PRN PO DECREASED GLUCOSE; Start 07/18/17 at 07:00 Glucose (Glutose) 22.5 gm Q15M PRN PO DECREASED GLUCOSE; Start 07/18/17 at 07: 00 Dextrose (D50w Syringe) 25 ml Q15M PRN IV DECREASED GLUCOSE; Start 07/18/17 at 07:00 Dextrose (D50w Syringe) 50 ml Q15M PRN IV DECREASED GLUCOSE; Start 07/18/17 at 07:00 Glucagon (Glucagen) 1 mg Q15M PRN IM DECREASED GLUCOSE; Start 07/18/17 at 07:00 Glucose (Glutose) 15 gm Q15M PRN BUCCAL DECREASED GLUCOSE; Start 07/18/17 at 07 :00 Hydralazine HCl (Apresoline) 10 mg Q4H PRN IV SBP > 160 Last administered on 21:28; Admin Dose 10 MG; Start 07/18/17 at 08:00 Losartan Potassium (Cozaar) 100 mg DAILY PO Last administered on 07/18/17 10: 32; Admin Dose 100 MG; Start 07/18/17 at 09:00; Status Future Hold Amlodipine Besylate 10 mg 10 mg DAILY PO Last administered on 07/18/17 09:12; Admin Dose 10 MG; Start 07/18/17 at 09:00; Status Future Hold Levetiracetam 1250 mg/Sodium Chloride 112.5 ml @ 450 mls/hr Q12 IVPB Last administered on 07/20/17 08:33; Admin Dose 450 MLS/HR; Start 07/18/17 at 21:00 Valproate Sodium/ Sodium Chloride (Depacon/NS) 110 ml @ 110 mls/hr Q6 IVPB Last administered on 07/20/17 13:59; Admin Dose 110 MLS/HR; Start 07/20/17 at 00:00 Phenobarbital (Luminal) 32.4 mg TID PO Last administered on 07/20/17 13:41; Admin Dose 32.4 MG; Start 07/20/17 at 13:00 Lorazepam (Ativan) 2 mg ONCE PRN IV ANXIETY; Start 07/20/17 at 16:00; Stop at 23:33 CATHERINE ALCANTAR MD Jul 20, 2017 16:33
--- NOTE | 2017-07-20 19:03 | PSY ---
Date/Time of Note Date/Time of Note DATE: 07/20/17 TIME: 17:31 Psychiatric Subjective Eval Consent Pt consented to telemedicine: Yes Subjective Evaluation Patient location: inpatient Chief Complaint: chest pain since 1pm today. seizures x 3 today, on Keppra Reason for consult: Pseudoseizures History of present illness This is a 47 year old female who was brought into the ED with complaints of chest pain. She was admitted for treatment and evaluation for her symptoms of chest pain, she was also hypertensive and her blood sugar was 530. During her stay she called a family member stating that she was having a seizure and that the nurses were not responding. She had a seizure which appeared to have no tonic activity, and some form of shaking. There was no significant change in her vitals, nor loss of urine or feces, nor was there a post ictal state. A psychiatric consult was requested as there was suspicion that the seizures were either malingered, or unconsciously generated. She has a long standing history of poor adherence with medications and treatment for her diabetes, and cardiac condition. She denies any psychiatric symptoms such as anxiety, depression, hallucinations or delusions. She denies any history of trauma. She has been treated for seizures in the past and has noted that Keppra has been helpful. I discussed with the patient that there was a concern that the seizures she demonstrated lacked any medical explanation. She responded in a manner that she was indifferent. I asked her why would she call a family member stating that she was having a seizure and was not, and was complaining that she was not pleased with the nursing care. I reminded her that she has had seizures before, why would she be needing immediate nursing attention when the nurse would not be able to do anything except witness the seizure and protect her from self harm. The patient responded in a manner that she was disinterested and did not believe that she would benefit from psychiatric treatment or with psychotropic medications. The treating nurse who had spoken with family members noted that this "attention seeking behavior" has been recent , and that there has been an increase in somatic complaints. She denied any conflict her her and her . She denied hallucinations, delusions, helplessness and hopelessness. She was seemingly indifferent about her declining health. 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 Past psychiatric history She denied any prior psychiatric treatment. She said that she was informed that she had pseudoseizures before and the only treatment she received was Keppra. She denied any psychiatric hospitalization or any from of counseling. Family History Problems Family History Problems: (1) Family history of endocrine and metabolic disease Relations: 33 FATHER; 32 MOTHER (2) Family history of hypertension Relations: 33 FATHER; 32 MOTHER Medical history Problems Medical Problems: (1) Asthma Status: Chronic (2) Chest pain Status: Acute (3) Chest pain Status: Acute (4) Hyperlipidemia Status: Chronic (5) Hypertension Status: Chronic (6) Hypertensive emergency Status: Acute (7) Numbness Status: Acute (8) Obesity (BMI 30-39.9) Status: Chronic (9) TIA (transient ischemic attack) Status: Acute (10) Type 2 diabetes mellitus Status: Chronic Allergies: Coded Allergies: Penicillins (Verified Allergy, Unknown, 07/17/17) erythromycin base (Unverified Allergy, Unknown, 07/17/17) Substance Abuse Substance use: other (There is a report that she has used cocaine in the past. ) Social History Marital status: Level of education: Some college. 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 Psychiatric Objective Eval Review of Systems: Review of Systems: Applicable Constitutional: Normal Eyes: Normal ENT: Normal Neck: Normal Respiratory: Abnormal Chest/Breast: Normal Cardiovascular: Abnormal GI: Normal Genitourinary: Normal Skin: Normal Lymphatic: Normal Musculoskeletal: Normal Neurological: Abnormal Other: Complains of shortness of breath and chest pain. Physical Examination: Sleep: Adequate Appetite: Adequate Energy: Adequate Interest: Adequate Mental Status Examination: Appearance: Groomed Eye Contact: Poor Psychomotor Activity: Normal Behavior: Guarded Speech: Clear AFFECT: Flat Mood: Depressed Though Process: Linear Thought Content: Normal Suicidal: No Homicidal: No On 72 hour hold: No Orientation: x4 Cognition: Alert Insight: Intact Judgement: Intact Attention Span: Intact Laboratory Results Laboratory Tests Test 07/18/17 21:30 07/19/17 02:48 07/19/17 06:37 07/19/17 08:57 Bedside Glucose 264mg/dL 213mg/dL 285mg/dL White Blood Count 5.010^3/ul Red Blood Count 4.4310^6/ul Hemoglobin 12.0g/dl Hematocrit 35.3% Mean Corpuscular Volume 79.7fl Mean Corpuscular Hemoglobin 27.1pg Mean Corpuscular Hemoglobin Concent 34.0g/dl Red Cell Distribution Width 12.5% Platelet Count 76715^3/UL Mean Platelet Volume 11.6fl Neutrophils % 55.0% Lymphocytes % 34.1% Monocytes % 7.9% Eosinophils % 2.0% Basophils % 0.6% Nucleated Red Blood Cells % 0.0/100WBC Neutrophils # (Manual) 310^3/ul Lymphocytes # 1.710^3/ul Monocytes # 0.410^3/ul Eosinophils # 0.110^3/ul Basophils # 0.010^3/ul Nucleated Red Blood Cells # 0.010^3/ul Sodium Level 133mmol/L Potassium Level 3.9mmol/L Chloride Level 104mmol/L Carbon Dioxide Level 22mmol/L Anion Gap 11 Blood Urea Nitrogen 27mg/dl Creatinine 1.31mg/dl Glucose Level 230mg/dl Hemoglobin A1c % Calcium Level 8.5mg/dl Phosphorus Level 5.6mg/dl Magnesium Level 2.0mg/dl Total Bilirubin 0.1mg/dl Direct Bilirubin 0.00mg/dl Indirect Bilirubin 0.1mg/dl Aspartate Amino Transf (AST/SGOT) 18IU/L Alanine Aminotransferase (ALT/SGPT) 19IU/L Alkaline Phosphatase 102IU/L Total Protein 5.8g/dl Albumin 2.6g/dl Test 07/19/17 12:02 07/19/17 17:32 07/19/17 21:35 07/20/17 01:55 Bedside Glucose 177mg/dL 92mg/dL 145mg/dL 122mg/dL Test 07/20/17 06:11 07/20/17 08:26 07/20/17 12:28 07/20/17 17:37 White Blood Count 4.510^3/ul Red Blood Count 4.7110^6/ul Hemoglobin 12.7g/dl Hematocrit 38.1% Mean Corpuscular Volume 80.9fl Mean Corpuscular Hemoglobin 27.0pg Mean Corpuscular Hemoglobin Concent 33.3g/dl Red Cell Distribution Width 12.6% Platelet Count 55150^3/UL Mean Platelet Volume 11.3fl Neutrophils % 63.8% Lymphocytes % 26.3% Monocytes % 7.1% Eosinophils % 1.5% Basophils % 0.4% Nucleated Red Blood Cells % 0.0/100WBC Neutrophils # (Manual) 310^3/ul Lymphocytes # 1.210^3/ul Monocytes # 0.310^3/ul Eosinophils # 0.110^3/ul Basophils # 0.010^3/ul Nucleated Red Blood Cells # 0.010^3/ul Sodium Level 140mmol/L Potassium Level 4.0mmol/L Chloride Level 106mmol/L Carbon Dioxide Level 22mmol/L Anion Gap 16 Blood Urea Nitrogen 25mg/dl Creatinine 1.07mg/dl Glucose Level 134mg/dl Hemoglobin A1c % Calcium Level 8.6mg/dl Total Bilirubin 0.1mg/dl Direct Bilirubin 0.00mg/dl Indirect Bilirubin 0.1mg/dl Aspartate Amino Transf (AST/SGOT) 13IU/L Alanine Aminotransferase (ALT/SGPT) 22IU/L Alkaline Phosphatase 97IU/L Total Protein 6.2g/dl Albumin 2.7g/dl Globulin 3.50g/dl Albumin/Globulin Ratio 0.77 Bedside Glucose 126mg/dL 116mg/dL 83mg/dL Assessment and Plan Assessment/Diagnosis [place] I: F45 Somatoform Disorder, 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 Pseudoseizures. [place] II: deferred [place] III: Obesity, Diabetes type II, CAD, peripheral neuropathy, hypertension. [place] IV: lack of social support. [place] V: 60 Recommendation/Plan Medication Management The patient may benefit from a Lamotrigine trial as this is appetite neutral and not associated with weight gain. Depakote may not be in her best interest as her weight is an issue of concern as well as source of her seizures, as noted by the neurologist. She is not receptive to take an SSRI at this time. Effexor would help with reduction of anxiety and stress, depression as well as pain perception. Suggest Effexor XR 150mg daily. (She could be persuated.) Gabapentin may also stabilize mood, and provide seizure protection. Benzodiazepines should be avoided as they would induce dependence, and place her at risk for withdrawal seizures. Psychotherapy The patient would clearly benefit from some form of therapy to assist with problems with adherence with treatment for all her medical conditions. Nursing should discuss in a non confrontational manner behaviors which are seemingly inconsistent with medical explanation such as having pseudoseizures. Nursing could also clarify with the patient regarding her behavior of calling family members in a passive aggressive manner complaining of nursing care. Pt. Caregiver/Family Education The family should be provided information on pseudoseizures and Somatiform disorders. 5150 Recommendation: If the patient continues to behave in a manner which requires chronic assistence and does not respond to behavioral interventions, such as clarification, she should be assessed for 5150 as gravely disabled and be transferred for further psychiatric observation and treatment. WATSON MCDONNELL MD Jul 20, 2017 18:46
[2017-07-20] MEDS: ATORVASTATIN 80 MG TAB PO SCH (21:07)
[2017-07-20] MEDS: hydrALAzine 20 MG INJ IV PRN (21:23)
[2017-07-21] VITALS (16 sets, daily range): BP systolic 118–187; BP diastolic 57–79; PULSE 69–89; RESP 18–19
[2017-07-21] MEDS: LORAZEPAM 2 MG INJ IV PRN (01:17)
[2017-07-21] MEDS: hydrALAzine 20 MG INJ IV PRN ×3 (01:23→20:47)
[2017-07-21] MEDS: VALPROATE INJ 1,000 MG in SOD CHLORIDE 0.9% 100 ML IVPB SCH ×4 (01:34→17:42)
[2017-07-21 01:48] LABS: BASOPHILS % 0.5 % (0.0-2.0); EOSINOPHILS % 0.9 % (0.0-7.0); HEMATOCRIT 40.9 % (37.0-47.0); HEMOGLOBIN 13.5 g/dl (12.0-16.0); LYMPHOCYTES # 1.4 10^3/ul (0.8-2.9); LYMPHOCYTES % 31.5 % (15.0-51.0); MEAN CORPUSCULAR HEMOGLOBIN 27.1 pg (29.0-33.0); MEAN PLATELET VOLUME 10.9 fl (7.4-10.4); MONOCYTE # 0.3 10^3/ul (0.3-0.9); MONOCYTES % 6.2 % (0.0-11.0); NEUTROPHILS % 60.2 % (39.0-77.0); PLATELET COUNT 251 10^3/UL (140-415); RED BLOOD COUNT 4.99 10^6/ul (4.20-5.40); RED CELL DISTRIBUTION WIDTH 12.8 % (11.5-14.5); WHITE BLOOD COUNT 4.4 10^3/ul (4.8-10.8)
[2017-07-21] MEDS: ACCU-CHEK XX SCH (02:00)
[2017-07-21 02:20] LABS: ALANINE AMINOTRANSFERASE 21 IU/L (13-69); ALBUMIN 3.1 g/dl (3.3-4.9); ALBUMIN/GLOBULIN RATIO 0.86; ALKALINE PHOSPHATASE 99 IU/L (42-121); ANION GAP 11 (8-16); ASPARTATE AMINO TRANSFERASE 14 IU/L (15-46); BILIRUBIN,INDIRECT 0.1 mg/dl (0-1.1); BILIRUBIN,TOTAL 0.1 mg/dl (0.2-1.3); BLOOD UREA NITROGEN 22 mg/dl (7-20); CALCIUM 8.7 mg/dl (8.4-10.2); CARBON DIOXIDE 22 mmol/L (21-31); CHLORIDE 108 mmol/L (97-110); CREATINE KINASE 68 IU/L (23-200); CREATININE 1.07 mg/dl (0.44-1.00); GLUCOSE 154 mg/dl (70-220); POTASSIUM 3.8 mmol/L (3.5-5.1); SODIUM 137 mmol/L (135-144); TOTAL PROTEIN 6.7 g/dl (6.1-8.1)
[2017-07-21 02:22] LABS: C-REACTIVE PROTEIN < 0.5 mg/dl (0.0-0.9)
[2017-07-21] MEDS: PANTOPRAZOLE (EC) 40 MG TAB PO SCH (06:00)
--- NOTE | 2017-07-21 06:10 | NEURPT ---
DATE: 07/20/2017 SUBJECTIVE: Patient is a 47-year-old lady with a past medical history of underlying seizure mixed with stress seizure. The patient had multiple Ativan yesterday, around a total of 6 mg, as well as Depakote 1000 four times a day, Keppra 1250 mg twice a day. The patient had an event in which she closed her eyes and moved both sides of her body, right and left, for a few seconds. Then, the patient can follow commands after this event with no difficulty in which the patient has multiple medications with the possibility of seizure mixed with stress seizure. OBJECTIVE: GENERAL: On exam today, the patient is alert, awake, oriented for time, place and person. Normal speech and normal language. HEART: Regular rate and rhythm. LUNGS: Equal breath sounds. ABDOMEN: Soft, nondistended, no tenderness. NEUROLOGICAL: Cranial nerve exam II to XII intact. Motor: Moving both upper and lower extremities against gravity without difficulty. Sensation decreased for glove and sock area for light touch and temperature. Coordination: [id number] test intact. ASSESSMENT AND PLAN: Patient is 47 years old with underlying seizure mixed with stress seizure, and with the patient having 3 medications currently, Keppra 1250 twice a day, Depakote 1000 four times a day as well as Ativan as needed, I am going to add for her phenobarbital, and I recommended for the patient to follow up with continuous EEG to evaluate true seizure from pseudoseizure to adjust her medication as well as I recommend the patient to be evaluated by psychiatrist to see if underlying psychiatric disorder. Dictated By: Zaire Braun MD /[email or web address] /Document#: [id number]
[2017-07-21] MEDS: INSULIN ASPART [NOVOLOG] 3 ML PEN SC SCH ×7 (08:00→20:47)
[2017-07-21] MEDS: LEVETIRACETAM IVPB SCH ×2 (08:41→20:46)
[2017-07-21] MEDS: SOD CHLORIDE 0.9% IVPB SCH ×2 (08:41→20:46)
[2017-07-21] MEDS: ASPIRIN (EC) 81 MG TAB PO SCH (08:41)
[2017-07-21] MEDS: LINAGLIPTIN 5 MG TABLET PO SCH (08:41)
[2017-07-21] MEDS: CLOPIDOGREL 75 MG TAB PO SCH (08:41)
[2017-07-21] MEDS: ENOXAPARIN 40 MG/0.4 ML SYG SC SCH (08:43)
[2017-07-21] MEDS: INSULIN GLARGINE [LANtus] 3 ML PEN SC SCH (08:44)
[2017-07-21] MEDS: PHENOBARBITAL 32.4 MG TAB PO SCH (08:54)
[2017-07-21] MEDS: FENOFIBRATE 145 MG TAB PO SCH (08:54)
[2017-07-21 10:09] LABS: BASOPHILS % 0.3 % (0.0-2.0); EOSINOPHILS # 0.1 10^3/ul (0.0-0.5); EOSINOPHILS % 1.3 % (0.0-7.0); HEMATOCRIT 38.2 % (37.0-47.0); HEMOGLOBIN 12.9 g/dl (12.0-16.0); LYMPHOCYTES # 1.1 10^3/ul (0.8-2.9); LYMPHOCYTES % 28.6 % (15.0-51.0); MEAN CORPUSCULAR HEMOGLOBIN 27.7 pg (29.0-33.0); MEAN CORPUSCULAR HGB CONC 33.8 g/dl (32.0-37.0); MEAN CORPUSCULAR VOLUME 82.2 fl (82.0-101.0); MEAN PLATELET VOLUME 10.9 fl (7.4-10.4); MONOCYTE # 0.3 10^3/ul (0.3-0.9); MONOCYTES % 6.6 % (0.0-11.0); NEUTROPHILS % 62.7 % (39.0-77.0); PLATELET COUNT 252 10^3/UL (140-415); RED BLOOD COUNT 4.65 10^6/ul (4.20-5.40); RED CELL DISTRIBUTION WIDTH 12.5 % (11.5-14.5); WHITE BLOOD COUNT 3.8 10^3/ul (4.8-10.8)
[2017-07-21 10:43] LABS: ALBUMIN 2.7 g/dl (3.3-4.9); ALBUMIN/GLOBULIN RATIO 0.81; BILIRUBIN,INDIRECT 0.1 mg/dl (0-1.1); BILIRUBIN,TOTAL 0.1 mg/dl (0.2-1.3); CALCIUM 8.3 mg/dl (8.4-10.2); CREATININE 1.05 mg/dl (0.44-1.00); POTASSIUM 3.7 mmol/L (3.5-5.1)
--- NOTE | 2017-07-21 17:18 | PN ---
Date/Time of Note Date/Time of Note DATE: 07/21/17 TIME: 17:14 Assessment/Plan VTE Prophylaxis VTE Prophylaxis Intervention: LMWH Lines/Catheters IV Catheter Type (from Nrs): Saline Lock Urinary Cath still in place: No Assessment/Plan Chief Complaint/Hosp Course 47 yo female with epilepsy, severe obesity, CAD s/p CABG, DMII who presented with seizures and hyperglycemia. Seizures perhaps volitional/malingering Likely pseudoseizures - Seems unlikely that these are true seizures as patient clearly dramatizing and wanting benzos - Continue Keppra 1250 - Depakote was added given recurrent seizures, management per Dr Mike from neurology - Ativan 2 mg PRN seizures - MRI unremarkable - EEG Depression: -Telepsych DMII with poor control: - Continue basal/bolus insulin titration - Enducatd on importance - DM educator CAD sp CABG - Continue aspirin and statin ERIBERTO: - Unclear etiology - Trend creatinine for now and hold ARB and amlodipine ICU care Discharge plan pending Problems: Subjective 24 Hr Interval Summary Free Text/Dictation Patinet with numerous pseudoseizures overnight vs malingering Recevied benzos This AM very sedated and tired No phsyical complaints Again voiced her sense of great "stress" in her life and feeling of being a burden She denies any depression or suicidality Does not want antidepressent medication at this time Exam/Review of Systems Vital Signs Vitals Vital Signs Date Time Temp Pulse Resp B/P Pulse Ox O2 Delivery O2 Flow Rate FiO2 07/21/17 16:51 81 07/21/17 15:23 98.5 18 137/67 100 07/20/17 20:00 Room Air 07/19/17 11:00 2.0 Intake and Output 07/20/17 07/20/17 07/21/17 14:59 22:59 06:59 Intake Total 462.5 ml 750 ml 240 ml Output Total 500 ml Balance -37.5 ml 750 ml 240 ml Exam Constitutional: alert, oriented Respiratory: No clear to auscultation, No congested cough, No crackles/rales, No diminished breath sounds, No intercostal retraction, No labored breathing, No normal air movement, No other, No respirations, No tactile fremitus, No wheezing Cardiovascular: No S3, No S4, No bruits, No diastolic murmur, No edema, No gallop, No irregular rhythm, No jugular venous distention (JVD), No murmurs/ extra sounds, No nl pulses, No other, No regular rate and rhythm, No rub, No systolic murmur Gastrointestinal: No ascites, No bowel sounds, No distended, No firm, No hepatomegaly, No mass, No nl liver, spleen, No non-tender, No other, No rebound or guarding, No soft, No splenomegaly, No surgical scars, No tender Results Result Diagram: 07/21/17 0954 07/21/17 0954 Results 24 hrs Laboratory Tests Test 07/20/17 17:37 07/20/17 20:35 07/21/17 01:35 07/21/17 08:30 Bedside Glucose 83 267 H 122 White Blood Count 4.4 L Red Blood Count 4.99 Hemoglobin 13.5 Hematocrit 40.9 Mean Corpuscular Volume 82.0 Mean Corpuscular Hemoglobin 27.1 L Mean Corpuscular Hemoglobin Concent 33.0 Red Cell Distribution Width 12.8 Platelet Count 251 Mean Platelet Volume 10.9 H Neutrophils % 60.2 Lymphocytes % 31.5 Monocytes % 6.2 Eosinophils % 0.9 Basophils % 0.5 Nucleated Red Blood Cells % 0.0 Neutrophils # (Manual) 3 Lymphocytes # 1.4 Monocytes # 0.3 Eosinophils # 0.0 Basophils # 0.0 Nucleated Red Blood Cells # 0.0 Erythrocyte Sedimentation Rate 100 H Sodium Level 137 Potassium Level 3.8 Chloride Level 108 Carbon Dioxide Level 22 Anion Gap 11 Blood Urea Nitrogen 22 H Creatinine 1.07 H Glucose Level 154 Lactic Acid Level 1.3 Calcium Level 8.7 Total Bilirubin 0.1 L Direct Bilirubin 0.00 Indirect Bilirubin 0.1 Aspartate Amino Transf (AST/SGOT) 14 L Alanine Aminotransferase (ALT/SGPT) 21 Alkaline Phosphatase 99 Creatine Kinase 68 Troponin I < 0.012 C-Reactive Protein < 0.5 Total Protein 6.7 Albumin 3.1 L Globulin 3.60 H Albumin/Globulin Ratio 0.86 Test 07/21/17 09:54 07/21/17 16:55 White Blood Count 3.8 L Red Blood Count 4.65 Hemoglobin 12.9 Hematocrit 38.2 Mean Corpuscular Volume 82.2 Mean Corpuscular Hemoglobin 27.7 L Mean Corpuscular Hemoglobin Concent 33.8 Red Cell Distribution Width 12.5 Platelet Count 252 Mean Platelet Volume 10.9 H Neutrophils % 62.7 Lymphocytes % 28.6 Monocytes % 6.6 Eosinophils % 1.3 Basophils % 0.3 Nucleated Red Blood Cells % 0.0 Neutrophils # (Manual) 2 Lymphocytes # 1.1 Monocytes # 0.3 Eosinophils # 0.1 Basophils # 0.0 Nucleated Red Blood Cells # 0.0 Sodium Level 136 Potassium Level 3.7 Chloride Level 109 Carbon Dioxide Level 20 L Anion Gap 11 Blood Urea Nitrogen 21 H Creatinine 1.05 H Glucose Level 113 # Calcium Level 8.3 L Total Bilirubin 0.1 L Direct Bilirubin 0.00 Indirect Bilirubin 0.1 Aspartate Amino Transf (AST/SGOT) 14 L Alanine Aminotransferase (ALT/SGPT) 25 Alkaline Phosphatase 85 Total Protein 6.0 L Albumin 2.7 L Globulin 3.30 H Albumin/Globulin Ratio 0.81 Valproic Acid (Depakene) Level 118 H Bedside Glucose 74 Medications Medications Current Medications Lorazepam (Ativan) 2 mg Q1H PRN IV SEIZURES Last administered on 07/21/17 01: 17; Admin Dose 2 MG; Start 07/18/17 at 05:30 Ondansetron HCl (Zofran Inj) 4 mg Q6H PRN IV NAUSEA AND/OR VOMITING; Start at 06:30 Nitroglycerin (Nitroglycerin (Sl Tab) 0.4 Mg) 1 tab Q5M PRN SL CHEST PAIN; Start 07/18/17 at 06:30 Acetaminophen (Tylenol Tab) 650 mg Q6H PRN PO PAIN LEVEL 1-3 OR FEVER; Start at 06:30 Enoxaparin Sodium (Lovenox) 40 mg DAILY SC Last administered on 07/21/17 08:43 ; Admin Dose 40 MG; Start 07/18/17 at 09:00 Aspirin (Halfprin) 81 mg DAILY PO Last administered on 07/21/17 08:41; Admin Dose 81 MG; Start 07/18/17 at 09:00 Clopidogrel Bisulfate (plaVIX) 75 mg DAILY PO Last administered on 07/21/17 08 :41; Admin Dose 75 MG; Start 07/18/17 at 09:00 Fenofibrate (Tricor) 145 mg DAILY PO Last administered on 07/20/17 08:34; Admin Dose 145 MG; Start 07/18/17 at 09:00 Insulin Glargine (Lantus) 27 unit DAILY SC Last administered on 07/21/17 08:44 ; Admin Dose 27 UNIT; Start 07/18/17 at 09:00 Pantoprazole (Protonix Tab) 40 mg DAILY@06 PO Last administered on 07/21/17 06 :00; Admin Dose 40 MG; Start 07/19/17 at 06:00 Atorvastatin Calcium (Lipitor) 80 mg HS PO Last administered on 07/20/17 21:07 ; Admin Dose 80 MG; Start 07/18/17 at 21:00 Linagliptin (Tradjenta) 5 mg DAILY PO Last administered on 07/21/17 08:41; Admin Dose 5 MG; Start 07/18/17 at 09:00 Diagnostic Test (Pha) (Accu-Chek) 1 ea 02 XX ; Start 07/19/17 at 02:00 Miscellaneous Information 1 ea NOTE XX ; Start 07/18/17 at 07:00 Glucose (Glutose) 15 gm Q15M PRN PO DECREASED GLUCOSE; Start 07/18/17 at 07:00 Glucose (Glutose) 22.5 gm Q15M PRN PO DECREASED GLUCOSE; Start 07/18/17 at 07: 00 Dextrose (D50w Syringe) 25 ml Q15M PRN IV DECREASED GLUCOSE; Start 07/18/17 at 07:00 Dextrose (D50w Syringe) 50 ml Q15M PRN IV DECREASED GLUCOSE; Start 07/18/17 at 07:00 Glucagon (Glucagen) 1 mg Q15M PRN IM DECREASED GLUCOSE; Start 07/18/17 at 07:00 Glucose (Glutose) 15 gm Q15M PRN BUCCAL DECREASED GLUCOSE; Start 07/18/17 at 07 :00 Hydralazine HCl (Apresoline) 10 mg Q4H PRN IV SBP > 160 Last administered on 01:32; Admin Dose 10 MG; Start 07/18/17 at 08:00 Losartan Potassium (Cozaar) 100 mg DAILY PO Last administered on 07/18/17 10: 32; Admin Dose 100 MG; Start 07/18/17 at 09:00; Status Future Hold Amlodipine Besylate 10 mg 10 mg DAILY PO Last administered on 07/18/17 09:12; Admin Dose 10 MG; Start 07/18/17 at 09:00; Status Future Hold Levetiracetam 1250 mg/Sodium Chloride 112.5 ml @ 450 mls/hr Q12 IVPB Last administered on 07/21/17 08:41; Admin Dose 450 MLS/HR; Start 07/18/17 at 21:00 Valproate Sodium/ Sodium Chloride (Depacon/NS) 110 ml @ 110 mls/hr Q6 IVPB Last administered on 07/21/17 12:28; Admin Dose 110 MLS/HR; Start 07/20/17 at 00:00 CATHERINE ALCANTAR MD Jul 21, 2017 17:18
[2017-07-21] MEDS: ATORVASTATIN 80 MG TAB PO SCH (20:46)
[2017-07-22] VITALS (12 sets, daily range): BP systolic 120–149; BP diastolic 61–72; PULSE 74–90; RESP 18–20
[2017-07-22] MEDS: VALPROATE INJ 1,000 MG in SOD CHLORIDE 0.9% 100 ML IVPB SCH ×4 (00:22→18:59)
[2017-07-22] MEDS: ACCU-CHEK XX SCH (02:00)
[2017-07-22] MEDS: PANTOPRAZOLE (EC) 40 MG TAB PO SCH (06:12)
[2017-07-22] MEDS: INSULIN ASPART [NOVOLOG] 3 ML PEN SC SCH ×8 (08:00→21:00)
[2017-07-22] MEDS: CLOPIDOGREL 75 MG TAB PO SCH (08:46)
[2017-07-22] MEDS: ASPIRIN (EC) 81 MG TAB PO SCH (08:46)
[2017-07-22] MEDS: LINAGLIPTIN 5 MG TABLET PO SCH (08:46)
[2017-07-22] MEDS: ENOXAPARIN 40 MG/0.4 ML SYG SC SCH (08:48)
[2017-07-22] MEDS: INSULIN GLARGINE [LANtus] 3 ML PEN SC SCH (08:53)
[2017-07-22] MEDS: FENOFIBRATE 145 MG TAB PO SCH ×2 (08:56→12:30)
[2017-07-22] MEDS: SOD CHLORIDE 0.9% IVPB SCH ×3 (08:57→21:44)
[2017-07-22] MEDS: LEVETIRACETAM IVPB SCH ×3 (08:57→21:44)
[2017-07-22 09:40] LABS: BASOPHILS % 0.2 % (0.0-2.0); EOSINOPHILS % 0.6 % (0.0-7.0); HEMOGLOBIN 13.7 g/dl (12.0-16.0); LYMPHOCYTES # 1.2 10^3/ul (0.8-2.9); LYMPHOCYTES % 24.8 % (15.0-51.0); MEAN CORPUSCULAR HEMOGLOBIN 27.4 pg (29.0-33.0); MEAN CORPUSCULAR HGB CONC 32.6 g/dl (32.0-37.0); MEAN PLATELET VOLUME 10.9 fl (7.4-10.4); MONOCYTE # 0.4 10^3/ul (0.3-0.9); NEUTROPHILS % 65.8 % (39.0-77.0); PLATELET COUNT 258 10^3/UL (140-415); RED CELL DISTRIBUTION WIDTH 12.7 % (11.5-14.5); WHITE BLOOD COUNT 4.9 10^3/ul (4.8-10.8)
[2017-07-22 10:10] LABS: ALBUMIN 2.9 g/dl (3.3-4.9); ALBUMIN/GLOBULIN RATIO 0.82; BILIRUBIN,INDIRECT 0.1 mg/dl (0-1.1); BILIRUBIN,TOTAL 0.1 mg/dl (0.2-1.3); CALCIUM 8.6 mg/dl (8.4-10.2); CREATININE 1.11 mg/dl (0.44-1.00); TOTAL PROTEIN 6.4 g/dl (6.1-8.1)
[2017-07-22] MEDS: NITROGLYCERIN (SL) 0.4 MG TAB SL PRN ×2 (11:26→11:49)
[2017-07-22] MEDS: LORAZEPAM 2 MG INJ IV PRN (14:54)
[2017-07-22] MEDS ORDERED: INSULIN ASPART [NOVOLOG] 3 ML PEN SC ONE (15:00)
--- NOTE | 2017-07-22 16:42 | RADRPT ---
PROCEDURE: MR Brain with and without contrast. CLINICAL INDICATION: Recurrent seizures. TECHNIQUE: An MRI of the brain was performed on a 1.5 amos scanner utilizing the following sequen eligio: Sagittal and axial T1 weighted, axial T2 weighted, coronal GRE, axial diffusion weighted with A DC mapping, and post contrast axial and coronal T1 weighted and axial FLAIR. 10 ml of Magnevist was given intravenously without complication. COMPARISON: 07/17/2017 MR brain . The study was nondiagnostic due to patient motion. FINDINGS: No evidence of restricted diffusion to suggest acute or early subacute ischemic infarction. No evide nce of pathologic enhancement of the brain parenchyma, leptomeninges or dura. No hypointense signal abnormalities are seen on the GRE images to suggest the presence of blood degr adation products. The brain parenchyma is normal in signal intensity and morphology with preservation of leal white di fferentiation. The ventricles and subarachnoid spaces are age-appropriate in size. The mesial tempor al lobes are symmetric. No evidence of cortical dysplasia/gliosis No evidence of intracranial hemorrhage, edema, mass effect, or shift. Partially empty sella. The posterior fossa contents, brainstem, craniocervical junction, seventh - eighth cranial nerve com plexes, orbits, paranasal sinuses, and pituitary axis are unremarkable. No calvarial lesion identifi ed. Trace fluid signal within the right mastoid air cells were suggestive of retained secretions or inflammatory change. Normal left mastoid air cells. Normal flow voids are visible in the proximal intracranial arteries and dural sinuses, indicating pa tency. IMPRESSION: 1. No acute or early subacute ischemic infarction or pathologic enhancement. 2. No evidence of structural abnormality, cortical dysplasia, or leal matter heterotopia. The gerri al temporal lobes are symmetric. 3. No other acute intracranial abnormality. RPTAT:AAJJ Physician Terry Date Time Electronically viewed and signed by Physician Terry on 07/22/2017 16:41 FELTON/
--- NOTE | 2017-07-22 17:12 | RADRPT ---
Vent Rate: 80 bpm RR Interval: 0 msec [place] Interval: 148 msec QRS Duration: 88 msec QT Interval: 420 msec QTC Interval: 484 msec P-R-T [place]: 59 - 69 - 111 degrees Normal sinus rhythm Low voltage QRS Cannot rule out Inferior infarct , age undetermined Cannot rule out Anterior infarct , age undetermined Abnormal ECG Electronically Signed By: Cooper Wilder [id number]
--- NOTE | 2017-07-22 17:31 | PN ---
Date/Time of Note Date/Time of Note DATE: 07/22/17 TIME: 17:29 Assessment/Plan VTE Prophylaxis VTE Prophylaxis Intervention: LMWH Lines/Catheters IV Catheter Type (from Nrsg): Saline Lock Assessment/Plan Chief Complaint/Hosp Course 47 yo female with epilepsy, severe obesity, CAD s/p CABG, DMII who presented with seizures and hyperglycemia. 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 Pending repeat - EEG Depression: -Telepsych DMII with poor control: - Continue basal/bolus insulin titration - Enducatd on importance - DM educator CAD sp CABG - Continue aspirin and statin ERIBERTO: - Unclear etiology - Trend creatinine for now and hold ARB and amlodipine ICU care Discharge plan pending Problems: Subjective 24 Hr Interval Summary Free Text/Dictation Again with clear malingering vs pseudoseizure overnight. Today says she wants to go home but wants to have her brain MRI first Reported CP to nurse this afternoon, but denies this to my interview Exam/Review of Systems Vital Signs Vitals Vital Signs Date Time Temp Pulse Resp B/P Pulse Ox O2 Delivery O2 Flow Rate FiO2 07/22/17 16:31 78 07/22/17 11:47 149/66 07/22/17 11:35 98.3 18 98 07/22/17 11:23 Room Air 07/19/17 11:00 2.0 Intake and Output 07/21/17 07/21/17 07/22/17 15:00 23:00 07:00 Intake Total 332.5 ml 820 ml 650 ml Balance 332.5 ml 820 ml 650 ml Exam Constitutional: No alert, No distress, No frail, No non-verbal, No obese, No oriented, No other, No well developed Psych: No anxiety, No confusion, No depression, No nl mood/affect, No no complaints, No other, No suicidal Head: No atraumatic, No hematomas, No lacerations, No normocephalic, No other ENMT: No intubated, No mucosa pink and moist, No nl external ears & nose, No nl lips & teeth, No nl nasal mucosa & septum, No other, No tympanic membranes Neck: No bruits, No jvd, No masses, No non-tender, No nuchal rigidity, No other , No supple, No thyromegaly Respiratory: No clear to auscultation, No congested cough, No crackles/rales, No diminished breath sounds, No intercostal retraction, No labored breathing, No normal air movement, No other, No respirations, No tactile fremitus, No wheezing Cardiovascular: No S3, No S4, No bruits, No diastolic murmur, No edema, No gallop, No irregular rhythm, No jugular venous distention (JVD), No murmurs/ extra sounds, No nl pulses, No other, No regular rate and rhythm, No rub, No systolic murmur Gastrointestinal: No ascites, No bowel sounds, No distended, No firm, No hepatomegaly, No mass, No nl liver, spleen, No non-tender, No other, No rebound or guarding, No soft, No splenomegaly, No surgical scars, No tender Extremities: No calf tenderness, No clubbing, No cyanosis, No edema, No normal pulses, No other, No palpable cord, No pitting pedal edema, No tenderness Neurological: CLIENT PORTFOLIO MANAGER II-XII intact, nl mental status, nl speech, nl strength Results Result Diagram: 07/22/1756 07/22/17 0856 Results 24 hrs Laboratory Tests Test 07/21/17 20:45 07/22/17 08:43 07/22/17 08:56 07/22/17 12:27 Bedside Glucose 112 112 174 White Blood Count 4.9 # Red Blood Count 5.00 Hemoglobin 13.7 Hematocrit 42.0 Mean Corpuscular Volume 84.0 Mean Corpuscular Hemoglobin 27.4 L Mean Corpuscular Hemoglobin Concent 32.6 Red Cell Distribution Width 12.7 Platelet Count 258 Mean Platelet Volume 10.9 H Neutrophils % 65.8 Lymphocytes % 24.8 Monocytes % 8.0 Eosinophils % 0.6 Basophils % 0.2 Nucleated Red Blood Cells % 0.0 Neutrophils # (Manual) 3.2 Lymphocytes # 1.2 Monocytes # 0.4 Eosinophils # 0.0 Basophils # 0.0 Nucleated Red Blood Cells # 0.0 Sodium Level 142 Potassium Level 4.0 Chloride Level 110 Carbon Dioxide Level 20 L Anion Gap 16 Blood Urea Nitrogen 15 Creatinine 1.11 H Glucose Level 113 Calcium Level 8.6 Total Bilirubin 0.1 L Direct Bilirubin 0.00 Indirect Bilirubin 0.1 Aspartate Amino Transf (AST/SGOT) 17 Alanine Aminotransferase (ALT/SGPT) 16 Alkaline Phosphatase 90 Total Protein 6.4 Albumin 2.9 L Globulin 3.50 H Albumin/Globulin Ratio 0.82 Test 07/22/17 17:23 Bedside Glucose 93 Medications Medications Current Medications Lorazepam (Ativan) 2 mg Q1H PRN IV SEIZURES Last administered on 07/22/17 14: 54; Admin Dose 2 MG; Start 07/18/17 at 05:30 Ondansetron HCl (Zofran Inj) 4 mg Q6H PRN IV NAUSEA AND/OR VOMITING; Start at 06:30 Nitroglycerin (Nitroglycerin (Sl Tab) 0.4 Mg) 1 tab Q5M PRN SL CHEST PAIN Last administered on 07/22/17 11:49; Admin Dose 1 TAB; Start 07/18/17 at 06:30 Acetaminophen (Tylenol Tab) 650 mg Q6H PRN PO PAIN LEVEL 1-3 OR FEVER; Start at 06:30 Enoxaparin Sodium (Lovenox) 40 mg DAILY SC Last administered on 07/22/17 08:48 ; Admin Dose 40 MG; Start 07/18/17 at 09:00 Aspirin (Halfprin) 81 mg DAILY PO Last administered on 07/22/17 08:46; Admin Dose 81 MG; Start 07/18/17 at 09:00 Clopidogrel Bisulfate (plaVIX) 75 mg DAILY PO Last administered on 07/22/17 08 :46; Admin Dose 75 MG; Start 07/18/17 at 09:00 Fenofibrate (Tricor) 145 mg DAILY PO Last administered on 07/22/17 12:30; Admin Dose 145 MG; Start 07/18/17 at 09:00 Pantoprazole (Protonix Tab) 40 mg DAILY@06 PO Last administered on 07/22/17 06 :12; Admin Dose 40 MG; Start 07/19/17 at 06:00 Atorvastatin Calcium (Lipitor) 80 mg HS PO Last administered on 07/21/17 20:46 ; Admin Dose 80 MG; Start 07/18/17 at 21:00 Linagliptin (Tradjenta) 5 mg DAILY PO Last administered on 07/22/17 08:46; Admin Dose 5 MG; Start 07/18/17 at 09:00 Miscellaneous Information 1 ea NOTE XX ; Start 07/18/17 at 07:00 Glucose (Glutose) 15 gm Q15M PRN PO DECREASED GLUCOSE; Start 07/18/17 at 07:00 Glucose (Glutose) 22.5 gm Q15M PRN PO DECREASED GLUCOSE; Start 07/18/17 at 07: 00 Dextrose (D50w Syringe) 25 ml Q15M PRN IV DECREASED GLUCOSE; Start 07/18/17 at 07:00 Dextrose (D50w Syringe) 50 ml Q15M PRN IV DECREASED GLUCOSE; Start 07/18/17 at 07:00 Glucagon (Glucagen) 1 mg Q15M PRN IM DECREASED GLUCOSE; Start 07/18/17 at 07:00 Glucose (Glutose) 15 gm Q15M PRN BUCCAL DECREASED GLUCOSE; Start 07/18/17 at 07 :00 Hydralazine HCl (Apresoline) 10 mg Q4H PRN IV SBP > 160 Last administered on 20:47; Admin Dose 10 MG; Start 07/18/17 at 08:00 Losartan Potassium (Cozaar) 100 mg DAILY PO Last administered on 07/18/17 10: 32; Admin Dose 100 MG; Start 07/18/17 at 09:00; Status Future Hold Amlodipine Besylate 10 mg 10 mg DAILY PO Last administered on 07/18/17 09:12; Admin Dose 10 MG; Start 07/18/17 at 09:00; Status Future Hold Levetiracetam 1250 mg/Sodium Chloride 112.5 ml @ 450 mls/hr Q12 IVPB Last administered on 07/22/17 14:24; Admin Dose 450 MLS/HR; Start 07/18/17 at 21:00 Valproate Sodium/ Sodium Chloride (Depacon/NS) 110 ml @ 110 mls/hr Q6 IVPB Last administered on 07/22/17 12:32; Admin Dose 110 MLS/HR; Start 07/20/17 at 00:00 Insulin Glargine (Lantus) 25 unit DAILY SC ; Start 07/23/17 at 09:00 Diagnostic Test (Pha) (Accu-Chek) 1 ea 02 XX ; Start 07/23/17 at 02:00 CATHERINE ALCANTAR MD Jul 22, 2017 17:31
[2017-07-22] MEDS: ATORVASTATIN 80 MG TAB PO SCH (21:32)
[2017-07-23] VITALS (9 sets, daily range): BP systolic 118–169; BP diastolic 51–78; PULSE 69–79; RESP 16–20
[2017-07-23] MEDS: ACCU-CHEK XX SCH (02:00)
[2017-07-23] MEDS: PANTOPRAZOLE (EC) 40 MG TAB PO SCH (06:37)
[2017-07-23] MEDS: VALPROATE INJ 1,000 MG in SOD CHLORIDE 0.9% 100 ML IVPB SCH ×6 (06:38→23:42)
[2017-07-23] MEDS: INSULIN ASPART [NOVOLOG] 3 ML PEN SC SCH ×8 (08:00→21:00)
[2017-07-23] MEDS: ENOXAPARIN 40 MG/0.4 ML SYG SC SCH (09:20)
[2017-07-23] MEDS: CLOPIDOGREL 75 MG TAB PO SCH (09:24)
[2017-07-23] MEDS: SOD CHLORIDE 0.9% IVPB SCH ×2 (09:24→20:56)
[2017-07-23] MEDS: LEVETIRACETAM IVPB SCH ×2 (09:24→20:56)
[2017-07-23] MEDS: LINAGLIPTIN 5 MG TABLET PO SCH (09:24)
[2017-07-23] MEDS: FENOFIBRATE 145 MG TAB PO SCH (09:24)
[2017-07-23] MEDS: ASPIRIN (EC) 81 MG TAB PO SCH (09:25)
[2017-07-23] MEDS: INSULIN GLARGINE [LANtus] 3 ML PEN SC SCH (09:37)
[2017-07-23 10:13] LABS: BASOPHILS % 0.2 % (0.0-2.0); EOSINOPHILS % 0.9 % (0.0-7.0); HEMOGLOBIN 12.9 g/dl (12.0-16.0); LYMPHOCYTES # 1.1 10^3/ul (0.8-2.9); LYMPHOCYTES % 23.3 % (15.0-51.0); MEAN CORPUSCULAR HEMOGLOBIN 27.5 pg (29.0-33.0); MEAN CORPUSCULAR HGB CONC 33.1 g/dl (32.0-37.0); MEAN CORPUSCULAR VOLUME 83.2 fl (82.0-101.0); MONOCYTE # 0.3 10^3/ul (0.3-0.9); MONOCYTES % 7.5 % (0.0-11.0); NEUTROPHILS % 67.7 % (39.0-77.0); PLATELET COUNT 238 10^3/UL (140-415); RED BLOOD COUNT 4.69 10^6/ul (4.20-5.40); RED CELL DISTRIBUTION WIDTH 12.4 % (11.5-14.5); WHITE BLOOD COUNT 4.6 10^3/ul (4.8-10.8)
[2017-07-23] MEDS ORDERED: LOPERAMIDE 2 MG CAP PO PRN (11:00)
[2017-07-23 11:02] LABS: ALBUMIN 2.7 g/dl (3.3-4.9); ALBUMIN/GLOBULIN RATIO 0.79; BILIRUBIN,INDIRECT 0.1 mg/dl (0-1.1); BILIRUBIN,TOTAL 0.1 mg/dl (0.2-1.3); CALCIUM 8.2 mg/dl (8.4-10.2); CREATININE 0.99 mg/dl (0.44-1.00); TOTAL PROTEIN 6.1 g/dl (6.1-8.1)
--- NOTE | 2017-07-23 15:25 | PN ---
Date/Time of Note Date/Time of Note DATE: 07/23/17 TIME: 15:24 Assessment/Plan VTE Prophylaxis VTE Prophylaxis Intervention: LMWH Lines/Catheters IV Catheter Type (from Nrs): Saline Lock Assessment/Plan Chief Complaint/Hosp Course 47 yo female with possible seizure disorder, severe obesity, CAD s/p CABG, DMII who presented with seizures and hyperglycemia. Seizures most likely volitional/ malingering. Has gait instability 2/2 diabetic neuropathy preventing ambulation , plan to discharge to rehab Likely pseudoseizures - Seems unlikely that these are true seizures as patient clearly dramatizing and wanting benzos - Continue Keppra 1250 - Depakote was added given recurrent seizures, management per Dr Mike from neurology - Ativan 2 mg PRN seizures - MRI unremarkable but poor quality. Pending repeat - EEG Depression: -Telepsych consulted DMII with poor control: - Continue basal/bolus insulin titration - Enducatd on importance - DM educator CAD sp CABG - Continue aspirin and statin Discharge to SNF or [facility] Problems: Subjective 24 Hr Interval Summary Free Text/Dictation Seen by PT who recommend SNF/[facility] placement given instability She denies complaints Exam/Review of Systems Vital Signs Vitals Vital Signs Date Time Temp Pulse Resp B/P Pulse Ox O2 Delivery O2 Flow Rate FiO2 07/23/17 12:00 69 07/23/17 12:00 98.0 18 118/51 98 07/22/17 20:00 Nasal Cannula 07/19/17 11:00 2.0 Intake and Output 07/22/17 07/22/17 07/23/17 15:00 23:00 07:00 Intake Total 322.5 ml 750 ml 500 ml Output Total 100 ml Balance 322.5 ml 650 ml 500 ml Results Result Diagram: 07/23/17 0926 07/23/17 0926 Results 24 hrs Laboratory Tests Test 07/22/17 17:23 07/22/17 21:32 07/23/17 08:24 07/23/17 09:26 Bedside Glucose 93 101 97 White Blood Count 4.6 L Red Blood Count 4.69 Hemoglobin 12.9 Hematocrit 39.0 Mean Corpuscular Volume 83.2 Mean Corpuscular Hemoglobin 27.5 L Mean Corpuscular Hemoglobin Concent 33.1 Red Cell Distribution Width 12.4 Platelet Count 238 Mean Platelet Volume 11.0 H Neutrophils % 67.7 Lymphocytes % 23.3 Monocytes % 7.5 Eosinophils % 0.9 Basophils % 0.2 Nucleated Red Blood Cells % 0.0 Neutrophils # (Manual) 3.1 Lymphocytes # 1.1 Monocytes # 0.3 Eosinophils # 0.0 Basophils # 0.0 Nucleated Red Blood Cells # 0.0 Sodium Level 142 Potassium Level 4.0 Chloride Level 112 H Carbon Dioxide Level 19 L Anion Gap 15 Blood Urea Nitrogen 11 Creatinine 0.99 Glucose Level 102 Calcium Level 8.2 L Total Bilirubin 0.1 L Direct Bilirubin 0.00 Indirect Bilirubin 0.1 Aspartate Amino Transf (AST/SGOT) 20 Alanine Aminotransferase (ALT/SGPT) 24 Alkaline Phosphatase 83 Total Protein 6.1 Albumin 2.7 L Globulin 3.40 H Albumin/Globulin Ratio 0.79 Test 07/23/17 09:36 07/23/17 12:27 Bedside Glucose 93 135 Medications Medications Current Medications Lorazepam (Ativan) 2 mg Q1H PRN IV SEIZURES Last administered on 07/22/17 14: 54; Admin Dose 2 MG; Start 07/18/17 at 05:30 Ondansetron HCl (Zofran Inj) 4 mg Q6H PRN IV NAUSEA AND/OR VOMITING; Start at 06:30 Nitroglycerin (Nitroglycerin (Sl Tab) 0.4 Mg) 1 tab Q5M PRN SL CHEST PAIN Last administered on 07/22/17 11:49; Admin Dose 1 TAB; Start 07/18/17 at 06:30 Acetaminophen (Tylenol Tab) 650 mg Q6H PRN PO PAIN LEVEL 1-3 OR FEVER; Start at 06:30 Enoxaparin Sodium (Lovenox) 40 mg DAILY SC Last administered on 07/23/17 09:20 ; Admin Dose 40 MG; Start 07/18/17 at 09:00 Aspirin (Halfprin) 81 mg DAILY PO Last administered on 07/23/17 09:25; Admin Dose 81 MG; Start 07/18/17 at 09:00 Clopidogrel Bisulfate (plaVIX) 75 mg DAILY PO Last administered on 07/23/17 09 :24; Admin Dose 75 MG; Start 07/18/17 at 09:00 Fenofibrate (Tricor) 145 mg DAILY PO Last administered on 07/23/17 09:24; Admin Dose 145 MG; Start 07/18/17 at 09:00 Pantoprazole (Protonix Tab) 40 mg DAILY@06 PO Last administered on 07/23/17 06 :37; Admin Dose 40 MG; Start 07/19/17 at 06:00 Atorvastatin Calcium (Lipitor) 80 mg HS PO Last administered on 07/22/17 21:32 ; Admin Dose 80 MG; Start 07/18/17 at 21:00 Linagliptin (Tradjenta) 5 mg DAILY PO Last administered on 07/23/17 09:24; Admin Dose 5 MG; Start 07/18/17 at 09:00 Miscellaneous Information 1 ea NOTE XX ; Start 07/18/17 at 07:00 Glucose (Glutose) 15 gm Q15M PRN PO DECREASED GLUCOSE; Start 07/18/17 at 07:00 Glucose (Glutose) 22.5 gm Q15M PRN PO DECREASED GLUCOSE; Start 07/18/17 at 07: 00 Dextrose (D50w Syringe) 25 ml Q15M PRN IV DECREASED GLUCOSE; Start 07/18/17 at 07:00 Dextrose (D50w Syringe) 50 ml Q15M PRN IV DECREASED GLUCOSE; Start 07/18/17 at 07:00 Glucagon (Glucagen) 1 mg Q15M PRN IM DECREASED GLUCOSE; Start 07/18/17 at 07:00 Glucose (Glutose) 15 gm Q15M PRN BUCCAL DECREASED GLUCOSE; Start 07/18/17 at 07 :00 Hydralazine HCl (Apresoline) 10 mg Q4H PRN IV SBP > 160 Last administered on 20:47; Admin Dose 10 MG; Start 07/18/17 at 08:00 Losartan Potassium (Cozaar) 100 mg DAILY PO Last administered on 07/18/17 10: 32; Admin Dose 100 MG; Start 07/18/17 at 09:00; Status Future Hold Amlodipine Besylate 10 mg 10 mg DAILY PO Last administered on 07/18/17 09:12; Admin Dose 10 MG; Start 07/18/17 at 09:00; Status Future Hold Levetiracetam 1250 mg/Sodium Chloride 112.5 ml @ 450 mls/hr Q12 IVPB Last administered on 07/23/17 09:24; Admin Dose 450 MLS/HR; Start 07/18/17 at 21:00 Valproate Sodium/ Sodium Chloride (Depacon/NS) 110 ml @ 110 mls/hr Q6 IVPB Last administered on 07/23/17 12:27; Admin Dose 110 MLS/HR; Start 07/20/17 at 00:00 Insulin Glargine (Lantus) 25 unit DAILY SC Last administered on 07/23/17 09:37 ; Admin Dose 25 UNIT; Start 07/23/17 at 09:00 Diagnostic Test (Pha) (Accu-Chek) 1 ea 02 XX ; Start 07/23/17 at 02:00 Loperamide HCl (Imodium Cap) 2 mg QID PRN PO DIARRHEA Last administered on 07/23 12:25; Admin Dose 2 MG; Start 07/23/17 at 11:00 CATHERINE ALCANTAR MD Jul 23, 2017 15:25
[2017-07-23] MEDS: ATORVASTATIN 80 MG TAB PO SCH (20:56)
[2017-07-24] VITALS (12 sets, daily range): BP systolic 127–183; BP diastolic 63–83; PULSE 66–88; RESP 16–20
[2017-07-24] MEDS: ACCU-CHEK XX SCH (02:00)
[2017-07-24] MEDS: VALPROATE INJ 1,000 MG in SOD CHLORIDE 0.9% 100 ML IVPB SCH ×2 (06:03→12:47)
[2017-07-24] MEDS: PANTOPRAZOLE (EC) 40 MG TAB PO SCH (06:03)
[2017-07-24] MEDS: INSULIN ASPART [NOVOLOG] 3 ML PEN SC SCH ×7 (08:32→21:00)
[2017-07-24] MEDS: INSULIN GLARGINE [LANtus] 3 ML PEN SC SCH (08:33)
[2017-07-24] MEDS: LEVETIRACETAM IVPB SCH (08:57)
[2017-07-24] MEDS: SOD CHLORIDE 0.9% IVPB SCH (08:57)
[2017-07-24] MEDS: LOSARTAN 50 MG TAB PO SCH (08:59)
[2017-07-24] MEDS: CLOPIDOGREL 75 MG TAB PO SCH (08:59)
[2017-07-24] MEDS: LINAGLIPTIN 5 MG TABLET PO SCH (09:00)
[2017-07-24] MEDS: ASPIRIN (EC) 81 MG TAB PO SCH (09:00)
[2017-07-24] MEDS: FENOFIBRATE 145 MG TAB PO SCH (09:00)
[2017-07-24] MEDS: ENOXAPARIN 40 MG/0.4 ML SYG SC SCH (09:01)
[2017-07-24] MEDS: hydrALAzine 20 MG INJ IV PRN ×2 (09:05→18:03)
[2017-07-24 10:18] LABS: BASOPHILS % 0.3 % (0.0-2.0); HEMATOCRIT 43.1 % (37.0-47.0); HEMOGLOBIN 13.9 g/dl (12.0-16.0); LYMPHOCYTES # 1.1 10^3/ul (0.8-2.9); LYMPHOCYTES % 28.9 % (15.0-51.0); MEAN CORPUSCULAR HEMOGLOBIN 27.4 pg (29.0-33.0); MEAN CORPUSCULAR HGB CONC 32.3 g/dl (32.0-37.0); MEAN CORPUSCULAR VOLUME 84.8 fl (82.0-101.0); MEAN PLATELET VOLUME 10.7 fl (7.4-10.4); MONOCYTE # 0.3 10^3/ul (0.3-0.9); MONOCYTES % 6.3 % (0.0-11.0); PLATELET COUNT 243 10^3/UL (140-415); RED BLOOD COUNT 5.08 10^6/ul (4.20-5.40); RED CELL DISTRIBUTION WIDTH 12.2 % (11.5-14.5)
[2017-07-24 10:36] LABS: ALBUMIN 2.9 g/dl (3.3-4.9); ALBUMIN/GLOBULIN RATIO 0.78; CALCIUM 8.2 mg/dl (8.4-10.2); CREATININE 1.08 mg/dl (0.44-1.00); POTASSIUM 3.9 mmol/L (3.5-5.1); TOTAL PROTEIN 6.6 g/dl (6.1-8.1)
--- NOTE | 2017-07-24 18:48 | PN ---
Date/Time of Note Date/Time of Note DATE: 07/24/17 TIME: 18:41 Assessment/Plan VTE Prophylaxis VTE Prophylaxis Intervention: LMWH Lines/Catheters IV Catheter Type (from Nrsg): Peripheral IV Assessment/Plan Chief Complaint/Hosp Course 47 yo female with possible seizure disorder vs malingering, severe obesity, CAD s/p CABG, DMII who presented with seizures and hyperglycemia. Seizures most likely volitional/malingering. Has gait instability 2/2 diabetic neuropathy preventing ambulation Likely pseudoseizures - Seems unlikely that these are true seizures as patient clearly dramatizing and wanting benzos - Patient now oversedated. Will stop depakote and decrease keppra dose back to 500 BID - MRI unremarkable Depression: -Telepsych consulted DMII with poor control: - Continue basal/bolus insulin titration - Enducatd on importance - DM educator CAD sp CABG - Continue aspirin and statin Discharge to home when able to ambulate independently Problems: Subjective 24 Hr Interval Summary Free Text/Dictation Patient appears overly sedated, likley from depakote Does not want to be trasnferred to rehab Prefers to go home Exam/Review of Systems Vital Signs Vitals Vital Signs Date Time Temp Pulse Resp B/P Pulse Ox O2 Delivery O2 Flow Rate FiO2 07/24/17 18:01 96 21 07/24/17 16:08 97.4 76 18 181/83 07/24/17 07:45 Nasal Cannula Intake and Output 07/23/17 07/23/17 07/24/17 15:00 23:00 07:00 Intake Total 912.5 ml 110 ml Output Total 900 ml Balance 12.5 ml 110 ml Results Result Diagram: 07/24/17 0950 07/24/17 0950 Results 24 hrs Laboratory Tests Test 07/23/17 21:02 07/24/17 08:29 07/24/17 09:50 07/24/17 12:03 Bedside Glucose 154 155 White Blood Count 4.0 L Red Blood Count 5.08 Hemoglobin 13.9 Hematocrit 43.1 Mean Corpuscular Volume 84.8 Mean Corpuscular Hemoglobin 27.4 L Mean Corpuscular Hemoglobin Concent 32.3 Red Cell Distribution Width 12.2 Platelet Count 243 Mean Platelet Volume 10.7 H Neutrophils % 63.0 Lymphocytes % 28.9 Monocytes % 6.3 Eosinophils % 1.0 Basophils % 0.3 Nucleated Red Blood Cells % 0.0 Neutrophils # (Manual) 2.5 Lymphocytes # 1.1 Monocytes # 0.3 Eosinophils # 0.0 Basophils # 0.0 Nucleated Red Blood Cells # 0.0 Sodium Level 143 Potassium Level 3.9 Chloride Level 109 Carbon Dioxide Level 22 Anion Gap 16 Blood Urea Nitrogen 9 Creatinine 1.08 H Glucose Level 146 # Calcium Level 8.2 L Total Bilirubin 0.0 L Direct Bilirubin 0.00 Indirect Bilirubin 0.0 Aspartate Amino Transf (AST/SGOT) 25 Alanine Aminotransferase (ALT/SGPT) 27 Alkaline Phosphatase 91 Total Protein 6.6 Albumin 2.9 L Globulin 3.70 H Albumin/Globulin Ratio 0.78 Lab Scanned Report REFERENCE LAB Test 07/24/17 12:07 07/24/17 12:08 07/24/17 12:21 07/24/17 18:00 Bedside Glucose 186 95 Lab Scanned Report REFERENCE LAB REFERENCE LAB Medications Medications Current Medications Ondansetron HCl (Zofran Inj) 4 mg Q6H PRN IV NAUSEA AND/OR VOMITING; Start at 06:30 Nitroglycerin (Nitroglycerin (Sl Tab) 0.4 Mg) 1 tab Q5M PRN SL CHEST PAIN Last administered on 07/22/17 11:49; Admin Dose 1 TAB; Start 07/18/17 at 06:30 Acetaminophen (Tylenol Tab) 650 mg Q6H PRN PO PAIN LEVEL 1-3 OR FEVER; Start at 06:30 Enoxaparin Sodium (Lovenox) 40 mg DAILY SC Last administered on 07/24/17 09:01 ; Admin Dose 40 MG; Start 07/18/17 at 09:00 Aspirin (Halfprin) 81 mg DAILY PO Last administered on 07/24/17 09:00; Admin Dose 81 MG; Start 07/18/17 at 09:00 Clopidogrel Bisulfate (plaVIX) 75 mg DAILY PO Last administered on 07/24/17 08 :59; Admin Dose 75 MG; Start 07/18/17 at 09:00 Fenofibrate (Tricor) 145 mg DAILY PO Last administered on 07/24/17 09:00; Admin Dose 145 MG; Start 07/18/17 at 09:00 Pantoprazole (Protonix Tab) 40 mg DAILY@06 PO Last administered on 07/24/17 06 :03; Admin Dose 40 MG; Start 07/19/17 at 06:00 Atorvastatin Calcium (Lipitor) 80 mg HS PO Last administered on 07/23/17 20:56 ; Admin Dose 80 MG; Start 07/18/17 at 21:00 Linagliptin (Tradjenta) 5 mg DAILY PO Last administered on 07/24/17 09:00; Admin Dose 5 MG; Start 07/18/17 at 09:00 Miscellaneous Information 1 ea NOTE XX ; Start 07/18/17 at 07:00 Glucose (Glutose) 15 gm Q15M PRN PO DECREASED GLUCOSE; Start 07/18/17 at 07:00 Glucose (Glutose) 22.5 gm Q15M PRN PO DECREASED GLUCOSE; Start 07/18/17 at 07: 00 Dextrose (D50w Syringe) 25 ml Q15M PRN IV DECREASED GLUCOSE; Start 07/18/17 at 07:00 Dextrose (D50w Syringe) 50 ml Q15M PRN IV DECREASED GLUCOSE; Start 07/18/17 at 07:00 Glucagon (Glucagen) 1 mg Q15M PRN IM DECREASED GLUCOSE; Start 07/18/17 at 07:00 Glucose (Glutose) 15 gm Q15M PRN BUCCAL DECREASED GLUCOSE; Start 07/18/17 at 07 :00 Hydralazine HCl (Apresoline) 10 mg Q4H PRN IV SBP > 160 Last administered on 18:03; Admin Dose 10 MG; Start 07/18/17 at 08:00 Insulin Glargine (Lantus) 25 unit DAILY SC Last administered on 07/24/17 08:33 ; Admin Dose 25 UNIT; Start 07/23/17 at 09:00 Diagnostic Test (Pha) (Accu-Chek) 1 ea 02 XX ; Start 07/23/17 at 02:00 Loperamide HCl (Imodium Cap) 2 mg QID PRN PO DIARRHEA Last administered on 07/23 12:25; Admin Dose 2 MG; Start 07/23/17 at 11:00 Losartan Potassium (Cozaar) 50 mg DAILY PO Last administered on 07/24/17 08:59 ; Admin Dose 50 MG; Start 07/24/17 at 09:00 Levetiracetam (Keppra) 500 mg BID PO ; Start 07/24/17 at 21:00 CATHERINE ALCANTAR MD Jul 24, 2017 18:48
[2017-07-24] MEDS: ATORVASTATIN 80 MG TAB PO SCH (21:13)
[2017-07-24] MEDS: LEVETIRACETAM 500 MG TAB PO SCH (21:13)
[2017-07-25] VITALS (10 sets, daily range): BP systolic 129–182; BP diastolic 62–87; PULSE 75–86; RESP 18–20
[2017-07-25] MEDS: ACCU-CHEK XX SCH (01:09)
[2017-07-25] MEDS: PANTOPRAZOLE (EC) 40 MG TAB PO SCH (05:13)
[2017-07-25] MEDS: INSULIN ASPART [NOVOLOG] 3 ML PEN SC SCH ×4 (08:00→12:13)
[2017-07-25] MEDS: FENOFIBRATE 145 MG TAB PO SCH (08:11)
[2017-07-25] MEDS: CLOPIDOGREL 75 MG TAB PO SCH (08:11)
[2017-07-25] MEDS: LEVETIRACETAM 500 MG TAB PO SCH (08:11)
[2017-07-25] MEDS: LINAGLIPTIN 5 MG TABLET PO SCH (08:11)
[2017-07-25] MEDS: ASPIRIN (EC) 81 MG TAB PO SCH (08:11)
[2017-07-25] MEDS: LOSARTAN 50 MG TAB PO SCH (08:12)
[2017-07-25] MEDS: ENOXAPARIN 40 MG/0.4 ML SYG SC SCH (08:15)
[2017-07-25] MEDS: INSULIN GLARGINE [LANtus] 3 ML PEN SC SCH (08:16)
[2017-07-25 09:59] LABS: EOSINOPHILS % 0.9 % (0.0-7.0); HEMATOCRIT 37.2 % (37.0-47.0); HEMOGLOBIN 12.2 g/dl (12.0-16.0); LYMPHOCYTES # 1.1 10^3/ul (0.8-2.9); LYMPHOCYTES % 31.8 % (15.0-51.0); MEAN CORPUSCULAR HEMOGLOBIN 27.5 pg (29.0-33.0); MEAN CORPUSCULAR HGB CONC 32.8 g/dl (32.0-37.0); MONOCYTE # 0.3 10^3/ul (0.3-0.9); MONOCYTES % 9.9 % (0.0-11.0); NEUTROPHILS % 57.1 % (39.0-77.0); PLATELET COUNT 210 10^3/UL (140-415); RED BLOOD COUNT 4.43 10^6/ul (4.20-5.40); RED CELL DISTRIBUTION WIDTH 12.3 % (11.5-14.5); WHITE BLOOD COUNT 3.4 10^3/ul (4.8-10.8)
[2017-07-25 10:29] LABS: ALBUMIN 2.5 g/dl (3.3-4.9); ALBUMIN/GLOBULIN RATIO 0.75; CREATININE 1.03 mg/dl (0.44-1.00); POTASSIUM 3.8 mmol/L (3.5-5.1); TOTAL PROTEIN 5.8 g/dl (6.1-8.1)
--- NOTE | 2017-07-25 12:10 | PDOCDIS ---
Discharge Instructions CONDITION Patient Condition: Good HOME CARE INSTRUCTIONS: Special Diet: DIABETIC, CARDIAC ACTIVITY: Activity Restrictions: No Restrictions FOLLOW UP/APPOINTMENTS Follow-up Plan F/U WITH YOUR PCP IN 1-2 WEEKS HEMA ORTIZ Jul 25, 2017 12:10
[2017-07-25] MEDS: hydrALAzine 20 MG INJ IV PRN (15:03)
--- NOTE | 2017-07-25 15:43 | DS ---
Date/Time of Note Date/Time of Note DATE: 07/25/17 TIME: 15:33 Discharge Summary Admission/Discharge Info Admit Date/Time Jul 18, 2017 at 05:18 Discharge Date/Time July 25, 2017 Discharge Diagnosis Likely pseudoseizures likely secondary to malingering - Seems unlikely that these are true seizures as patient clearly dramatizing and wanting benzos -Continue home Keppra - MRI unremarkable Depression: -Telepsych consulted DMII with poor control: She is noncompliant -Continue home regimen, compliance stressed - DM educator CAD sp CABG - Continue aspirin and statin Patient Condition: Good Hx of Present Illness . Hospital Course Patient is a 47-year-old female with history of CAD with stents, history of CABG , seizure disorder and a diabetes who presented emergency department complaining of seizure and a chest pain. She states she has had 3 seizures prior to arrival to the ER. Last seizure prior to this was 7 months ago. She states she had compliant with her Keppra. Further chest pain is concerned, it is a left-sided, with no radiation, no associated shortness of breath, nausea or vomiting. On arrival patient sugar severely elevated, A1c was undetectable hence compliance appears to be unlikely. MRI brain was normal. Patient had what appeared to be pseudoseizures secondary to malingering EEG was normal and patient was evaluated by neurology. Patient's troponins were negative and ACS was not suspected. She was urged on the importance of compliance with her medications and she was seen by a clinical document improvement educator. On the day of DC the patient was ambulating, she had no acute complaints questions are answered, vitals labs and physical exam are stable. Home Meds Active Scripts Pantoprazole* (Pantoprazole*) 40 Mg Tablet., 40 MG PO DAILY@06 for 10 Days, # 10 Prov:CARLEEN CAMARENA MD 01/13/17 Metoclopramide Hcl* (Metoclopramide Hcl*) 5 Mg Tablet, 5 MG PO TID for 7 Days, # 20 TAB Prov:CARLEEN CAMARENA MD 01/13/17 Levetiracetam* (Keppra*) 500 Mg Tablet, 500 MG PO BID for 14 Days, #30 TAB Prov:CARLEEN CAMARENA MD 01/13/17 Ibuprofen* (Ibuprofen*) 600 Mg Tablet, 600 MG PO Q6H Y for MODERATE PAIN LEVEL 4 -6 for 14 Days, #30 TAB Prov:CARLEEN CAMARENA MD 01/13/17 Insulin Aspart* (Novolog Insulin Pen*) 100 Unit/Ml Soln, 5 UNIT SC WITH MEALS for 30 Days, 1 Refill Prov:DWIGHT KNIGHT Reji 09/20/15 Metformin Hcl (Glucophage) 500 Mg Tab, 1000 MG PO BID WITH MEALS for 30 Days, 1 [facility] Sitagliptin* (Januvia*) 50 Mg Tab, 100 MG PO DAILY for 30 Days [facility] 09/19/15 Insulin Glargine* (Lantus*) 100 Unit/Ml Soln, 27 UNIT SC DAILY for 30 Days, 1 [facility]/15 Fenofibrate Nanocrystallized* (Tricor*) 145 Mg Tab, 145 MG PO DAILY for 30 Days [facility] 02/23/15 Rosuvastatin Calcium* (Crestor*) 10 Mg Tablet, 20 MG PO HS for 30 Days, TAB Prov:DWIGHT KNIGHT . 02/23/15 Reported Medications Amlodipine-Olmesartan (Scooter) 10-40 Mg Tablet, 1 TAB PO DAILY, TAB 02/22/15 Aspirin Ec (Aspir 81) 81 Mg Tablet.dr, 81 MG PO DAILY, TAB 02/22/15 Clopidogrel Bisulfate (Clopidogrel) 75 Mg Tablet, 75 MG PO DAILY, TAB 02/22/15 Follow-up Plan FOLLOW UP WITH YOUR PRIMARY CARE PHYSICIAN IN 1-2 WEEKS Primary Care Provider Fabián Lester Time spent on discharge: > 30 minutes HEMA ORTIZ Jul 25, 2017 15:42
== END 2017-07-25 15:42 | disposition home or self-care (01) | DRG 637 ==
LOC: E/R 23:44 → UNDOADMIN 07-18 02:42 → MS3 07-18 02:42 → E/R 07-18 05:12 → MS3 07-18 05:18 → MS4 07-18 14:53 → ICU 07-18 17:06 → PP2 07-20 20:00 → MS4 07-21 01:55
PROVIDERS: ADMIT Internal Medicine; ATTEND Internal Medicine
PROC: 4A10X4Z Monitoring of Central Nervous Electrical Activity, External Approach (ICD-10-PCS; principal; 2017-07-19)
DX: E11.65 Type 2 diabetes mellitus with hyperglycemia (principal); K85.90 Acute pancreatitis without necrosis or infection, unspecified; N17.9 Acute kidney failure, unspecified; E11.42 Type 2 diabetes mellitus with diabetic polyneuropathy; I16.1 Hypertensive emergency; E87.1 Hypo-osmolality and hyponatremia; Z68.41 Body mass index [BMI] 40.0-44.9, adult; F44.5 Conversion disorder with seizures or convulsions; I50.9 Heart failure, unspecified; E66.01 Morbid (severe) obesity due to excess calories; I11.0 Hypertensive heart disease with heart failure; F32.9 Major depressive disorder, single episode, unspecified; I25.2 Old myocardial infarction; R07.9 Chest pain, unspecified; I25.10 Atherosclerotic heart disease of native coronary artery without angina pectoris; J45.909 Unspecified asthma, uncomplicated; E78.5 Hyperlipidemia, unspecified; Z91.14 Patient's other noncompliance with medication regimen; Z76.5 Malingerer [conscious simulation]; Z83.49 Family history of other endocrine, nutritional and metabolic diseases; Z79.82 Long term (current) use of aspirin; Z88.0 Allergy status to penicillin; Z95.5 Presence of coronary angioplasty implant and graft; Z82.49 Family history of ischemic heart disease and other diseases of the circulatory system; Z86.73 Personal history of transient ischemic attack (TIA), and cerebral infarction without residual deficits; Z95.1 Presence of aortocoronary bypass graft; Z79.4 Long term (current) use of insulin
CPT/HCPCS: 36415; 70553; 71010; 80048; 80053; 80061; 80076; 80164; 82247; 82248; 82550; 82962; 83036; 83605; 83690; 83735; 84100; 84484; 85025; 85651; 86140; 87081; 93005; 93306; 95819; 96372; 96374; 97161; J0360; J1650; J1815; J1953; J2060; J7030

== ENCOUNTER 2017-10-15 05:43 | Inpatient (IN) | payer BC ==
[2017-10-15] VITALS (10 sets, daily range): BP systolic 131–159; BP diastolic 68–83; PULSE 67–221; RESP 18–19; TEMP 97.2; Ht 167.6 cm; Wt 101.9 kg
[~2017-10-15] VITALS: Ht 167.6 cm; Wt 101.9 kg
[2017-10-15] MEDS ORDERED: LORAZEPAM 2 MG INJ IV STA (06:05)
[2017-10-15 06:26] LABS: BASOPHILS % 0.5 % (0.0-2.0); EOSINOPHILS # 0.1 10^3/ul (0.0-0.5); HEMOGLOBIN 13.7 g/dl (12.0-16.0); LYMPHOCYTES # 1.5 10^3/ul (0.8-2.9); LYMPHOCYTES % 18.8 % (15.0-51.0); MEAN CORPUSCULAR HEMOGLOBIN 27.8 pg (29.0-33.0); MEAN CORPUSCULAR HGB CONC 34.3 g/dl (32.0-37.0); MEAN CORPUSCULAR VOLUME 81.1 fl (82.0-101.0); MEAN PLATELET VOLUME 11.6 fl (7.4-10.4); MONOCYTE # 0.6 10^3/ul (0.3-0.9); NEUTROPHIL # 5.9 10^3/ul (1.6-7.5); NEUTROPHILS % 72.3 % (39.0-77.0); PLATELET COUNT 293 10^3/UL (140-415); RED BLOOD COUNT 4.93 10^6/ul (4.20-5.40); RED CELL DISTRIBUTION WIDTH 12.2 % (11.5-14.5); WHITE BLOOD COUNT 8.2 10^3/ul (4.8-10.8)
[2017-10-15] MEDS ORDERED: MAGNESIUM SULFATE 2 GM/50 ML 50 ML IVPB ONE (06:30)
[2017-10-15] MEDS ORDERED: LORAZEPAM 2 MG INJ IV ONE (06:30)
[2017-10-15 06:37] LABS: INR 0.91; PARTIAL THROMBOPLASTIN TIME 29.6 Sec (25.0-35.0); PROTIME 12.3 Sec (12.2-14.2)
[2017-10-15 06:40] LABS: CALCIUM 8.5 mg/dl (8.4-10.2); CREATININE 1.55 mg/dl (0.44-1.00); POTASSIUM 4.8 mmol/L (3.5-5.1)
[2017-10-15 06:51] LABS: TROPONIN-I 0.064 ng/ml (0.00-0.12)
[2017-10-15] MEDS ORDERED: SOD CHLORIDE 0.9% 1,000 ML IV STA (07:04)
[2017-10-15] MEDS ORDERED: INSULIN LISPRO 100 UNIT/ML VIAL SC STA (07:04)
--- NOTE | 2017-10-15 07:30 | RADRPT ---
PROCEDURE: CT BRAIN WITHOUT CONTRAST CLINICAL INDICATION: 47-year-old female with seizure. TECHNIQUE: The study was performed utilizing Hydro[employer] VCT 64-slice CT scanner. Direct axial sections were obtained from the foramen magnum to the vertex without the use of intravenous contrast material. Sagittal and coronal reformations were obtained. One or more of the following dose reduc tion techniques were utilized: automated exposure control, adjustment of the mA and/or kV according to patient's size and/or use of iterative reconstruction technique. DICOM images are available. The images were viewed on a PACS workstation. CTD/vol = 43.4 mGy; Total Exam DLP = 720.2 mGy-cm. COMPARISON: MR 07/22/2017; CT BRAIN 01/12/2017 FINDINGS: There is mild prominence of the sulci and cisternal spaces consistent with diffuse volume loss. Oth erwise, the ventricles have a normal shape and position. There is no evidence for mass effect or mid line shift. There are no intracranial areas of abnormal attenuation. There is no evidence for acut e intra or extra-axial blood. The bony calvarium is intact. The partially visualized paranasal sinus es and mastoid air cells are without significant abnormal soft tissue. IMPRESSION: 1. The intracranial contents are without significant interval change compared to the patient's prio r study. 2. Mild diffuse volume loss. .Leander Almanzar MD, MD Date Time Electronically viewed and signed by .Leander Almanzar MD, on 10/15/2017 07:29 .M/
[2017-10-15 07:31] LABS: THYROID STIMULATING HORMONE 4.89 MIU/L (0.465-4.680)
[2017-10-15] MEDS ORDERED: ACETAMINOPHEN 325 MG TAB PO PRN (08:00)
[2017-10-15] MEDS ORDERED: ONDANSETRON 4 MG INJ IV PRN (08:00)
--- NOTE | 2017-10-15 08:16 | ERD ---
ER Documentation Chief Complaint Chief Complaint "i had seizure last tuesday, fell hit my head, at 2 am another seizure. HPI Patient is a 47-year-old female with coronary disease, hypertension, seizures, and diabetes who presents with seizure. The patient had a fall on Tuesday and hit her head. She has had a seizure this morning which made her come to the ER and our charge nurse said that she witnessed 3 seizures while in the emergency department. They are not full tonic-clonic seizures they are partial seizures. The ureters also saw torsade de pointes on the monitor. The patient's primary doctor is Dr. Lester. The patient has been taking her Lamictal as directed and took it this morning. ROS All systems reviewed and are negative except as per history of present illness. Medications Home Meds Active Scripts Pantoprazole* (Pantoprazole*) 40 Mg Tablet., 40 MG PO DAILY@06 for 10 Days, # 10 Prov:CARLEEN CAMARENA MD 01/13/17 Metoclopramide Hcl* (Metoclopramide Hcl*) 5 Mg Tablet, 5 MG PO TID for 7 Days, # 20 TAB Prov:CARLEEN CAMARENA MD 01/13/17 Levetiracetam* (Keppra*) 500 Mg Tablet, 500 MG PO BID for 14 Days, #30 TAB Prov:CARLEEN CAMARENA MD 01/13/17 Ibuprofen* (Ibuprofen*) 600 Mg Tablet, 600 MG PO Q6H Y for MODERATE PAIN LEVEL 4 -6 for 14 Days, #30 TAB Prov:CARLEEN CAMARENA MD 01/13/17 Insulin Aspart* (Novolog Insulin Pen*) 100 Unit/Ml Soln, 5 UNIT SC WITH MEALS for 30 Days, 1 Refill Prov:DWIGHT KNIGHT. 09/20/15 Metformin Hcl (Glucophage) 500 Mg Tab, 1000 MG PO BID WITH MEALS for 30 Days, 1 Refill Prov:DWIGHT KNIGHT. 09/20/15 Sitagliptin* (Januvia*) 50 Mg Tab, 100 MG PO DAILY for 30 Days Prov:DWIGHT KNIGHT 09/19/15 Insulin Glargine* (Lantus*) 100 Unit/Ml Soln, 27 UNIT SC DAILY for 30 Days, 1 Refill Prov:DWIGHT KNIGHT 09/19/15 Fenofibrate Nanocrystallized* (Tricor*) 145 Mg Tab, 145 MG PO DAILY for 30 Days Prov:DWIGHT KNIGHT 02/23/15 Rosuvastatin Calcium* (Crestor*) 10 Mg Tablet, 20 MG PO HS for 30 Days, TAB Prov:DWIGHT KNIGHT 02/23/15 Reported Medications Amlodipine-Olmesartan (Scooter) 10-40 Mg Tablet, 1 TAB PO DAILY, TAB 02/22/15 Aspirin Ec (Aspir 81) 81 Mg Tablet.dr, 81 MG PO DAILY, TAB 02/22/15 Clopidogrel Bisulfate (Clopidogrel) 75 Mg Tablet, 75 MG PO DAILY, TAB 02/22/15 Allergies Allergies: Coded Allergies: Penicillins (Verified Allergy, Unknown, 07/17/17) erythromycin base (Unverified Allergy, Unknown, 07/17/17) PMhx/Soc History of Surgery: Yes (heart 02/2016) Anesthesia Reaction: No Hx Neurological Disorder: Yes (seizure) Hx Respiratory Disorders: Yes (ASTHMA ) Hx Cardiac Disorders: Yes (HTN) Hx Psychiatric Problems: No Hx Miscellaneous Medical Probl: Yes (see H&P) Hx Alcohol Use: No Hx Substance Use: No Hx Tobacco Use: No Smoking Status: Never smoker FmHx Family History: diabetes Physical Exam Vitals Vital Signs Date Time Temp Pulse Resp B/P Pulse Ox O2 Delivery O2 Flow Rate FiO2 10/15/17 06:11 97.2 74 20 162/76 4 Room Air Nasal Cannula 10/15/17 05:47 97.2 82 20 190/87 98 Physical Exam Const: Moderate distress Head: Atraumatic Eyes: Normal Conjunctiva ENT: Normal External Ears, Nose and Mouth. Neck: Full range of motion..~ No meningismus. Resp: Clear to auscultation bilaterally Cardio: Regular rate and rhythm, no murmurs Abd: Soft, non tender, non distended. Normal bowel sounds Skin: No petechiae or rashes Back: No midline or flank tenderness Ext: No cyanosis, or edema Neur: Awake and alert but no current seizure activity Psych: Normal Mood and Affect Result Diagram: 10/15/17 0600 10/15/17 0600 Results 24 hrs Laboratory Tests Test 10/15/17 06:00 White Blood Count 8.210^3/ul Red Blood Count 4.9310^6/ul Hemoglobin 13.7g/dl Hematocrit 40.0% Mean Corpuscular Volume 81.1fl Mean Corpuscular Hemoglobin 27.8pg Mean Corpuscular Hemoglobin Concent 34.3g/dl Red Cell Distribution Width 12.2% Platelet Count 78845^3/UL Mean Platelet Volume 11.6fl Neutrophils % 72.3% Lymphocytes % 18.8% Monocytes % 7.0% Eosinophils % 1.0% Basophils % 0.5% Nucleated Red Blood Cells % 0.0/100WBC Neutrophils # 5.910^3/ul Lymphocytes # 1.510^3/ul Monocytes # 0.610^3/ul Eosinophils # 0.110^3/ul Basophils # 0.010^3/ul Nucleated Red Blood Cells # 0.010^3/ul Prothrombin Time 12.3Sec Prothrombin Time Ratio 1.0 INR International Normalized Ratio 0.91 Activated Partial Thromboplast Time 29.6Sec Sodium Level 135mmol/L Potassium Level 4.8mmol/L Chloride Level 102mmol/L Carbon Dioxide Level 22mmol/L Anion Gap 16 Blood Urea Nitrogen 34mg/dl Creatinine 1.55mg/dl Glucose Level 480mg/dl Calcium Level 8.5mg/dl Magnesium Level 2.0mg/dl Troponin I 0.064ng/ml Thyroid Stimulating Hormone (TSH) 4.890MIU/L Free Thyroxine 1.08ng/dl Current Medications Medications (Trade) Dose Ordered Sig/Shelly Route PRN Reason Start Time Stop Time Status Last Admin Dose Admin Lorazepam (Ativan) 1 mg ONCE STAT IV 10/15/17 06:05 10/15/17 06:06 DC 10/15/17 06:15 Lorazepam 1 mg 1 mg ONCE ONCE IV 10/15/17 06:30 10/15/17 06:31 DC 10/15/17 06:16 Magnesium Sulfate (Magnesium Sulfate 2 Gm/50 ml) 50 ml @ 25 mls/hr ONCE ONCE IVPB 10/15/17 06:30 10/15/17 08:29 10/15/17 06:21 Insulin Human Lispro 10 unit 10 unit ONCE STAT SC 10/15/17 07:04 10/15/17 07:06 DC 10/15/17 07:28 Sodium Chloride (NS) 1,000 ml @ 1,000 mls/hr Q1H STAT IV 10/15/17 07:04 10/15/17 08:03 DC 10/15/17 07:27 Ondansetron HCl (Zofran Inj) 4 mg ER BRIDGE PRN IV NAUSEA AND/OR VOMITING 10/15/17 08:00 10/16/17 07:59 Acetaminophen (Tylenol Tab) 650 mg ER BRIDGE PRN PO MILD PAIN/FEVER 10/15/17 08:00 10/16/17 07:59 Procedures/MDM EKG read by me: Rate/Rhythm: Regular rate and rhythm at a normal rate Intervals: Normal Impression: No evidence of ischemia or arrhythmia The charge nurse did print off the rhythm strip with the torsade de pointes and placed on the chart. CT brain negative for bleed or fracture per radiology. Patient is a 39-year-old female who presents with multiple seizures. She also had a run of torsade de pointes. The patient was given magnesium 2 g IV as well as Ativan 2 mg IV. The patient will need admission to a telemetry bed for further telemetry monitoring. I believe inpatient admission is appropriate. The patient will be admitted to the care of the panel team. Other laboratory studies are basically normal other than hyperglycemia. The patient was given 10 units of Humalog as well as 1 L of normal saline for fluid resuscitation. She does not have signs of diabetic ketoacidosis at this time. Departure Diagnosis: Primary Impression: Status epilepticus Additional Impression: Torsades de pointes Condition: NURA Fuller MD Oct 15, 2017 08:16
[2017-10-15] MEDS ORDERED: Discontinue current oral sulfonylureas (glyburide, glipizide, and/or glimepiride) prior to XX ONE (10:00)
[2017-10-15] MEDS ORDERED: HYPOGLYCEMIA PROTOCOL when Glucose is <70 mg/dL or symptomatic <90 mg/dL. XX ONE (10:00)
[2017-10-15] MEDS ORDERED: GLUCOSE GEL 15 GRAM TUBE PO PRN ×2 (10:30)
[2017-10-15] MEDS ORDERED: GLUCAGON 1 MG INJ IM PRN (10:30)
[2017-10-15] MEDS ORDERED: GLUCOSE GEL 15 GRAM TUBE BUCCAL PRN (10:30)
[2017-10-15] MEDS ORDERED: DEXTROSE 50% 50 ML SYRINGE IV PRN ×2 (10:30)
--- NOTE | 2017-10-15 10:41 | HP ---
Date/Time of Note Date/Time of Note DATE: 10/15/17 TIME: 10:31 Assessment/Plan VTE Prophylaxis VTE Prophylaxis Intervention: LMWH Assessment/Plan Chief Complaint/Hosp Course 47 yo female with questionable history of seizures vs pseudoseizures who presents with hyperglycemia and possible seizure vs malingering Reported seizure: - Given my past history with the pateint and recently normal EEG I am suspicious this was a pseudoseizure rather than a true seizure. Will continue the patient on her home AEDs (lamictal and keppra) - Monitor for recurrence - Unless clearly having tonic-clonic seizure we will avoid benzos, particularly if she requests them at the time DMII with hyperglycemia: - Strongly suspect this is from medication nonadherence - We will control sugars with basal/bolus insulin ERIBERTO: - Likely prerenal from osmotic diuresis 2/2 hyperglycemia, will treat with IVF CAD: - Continue statin and plavix NSVT: - HD stable, correct electrolytes Likely discharge tomorrow Problems: HPI/ROS Admit Date/Time Admit Date/Time Hx of Present Illness 47 yo female wiht h/o depression, DMII with poor control, CAD who presents with apparent seizure Patient well know to me from her previous admission with simliary presentation. She had hyperglycemia to 500s and apparent seizrues which over the course of her hosptialization, it became clear these were in fact pseudoseizures/ malingering. Patient was noted numerous times by myself and nursing staff dramatizing arm shaking movements while fully alert and requesting benzos. Underwent EEG and MRI last admission, both of which were normal. It is unclear what has happened since discharge through today. Patient says she lives by herself and is compliant with her medications. She is unable to provide a history on why she is here, though I saw her after benzos given. Apparently she was witnessed having arm shaking concerning for seizures x 3 in the hosptial waiting room and was treated with ativan for seizures. Currently she is somnulent but denies any physical complaints On monitor in ED, she had a run of 5 beats of NSVT (this is not torsades) PMH/Family/Social Past Medical History Medical History: coronary artery disease, diabetes Past Surgical History Past Surgical Hx: coronary bypass surgery, other Family History Significant Family History: no pertinent family hx Social History Alcohol Use: none Smoking Status: Never smoker Drug Use: none Exam/Review of Systems Vital Signs Vitals Vital Signs Date Time Temp Pulse Resp B/P Pulse Ox O2 Delivery O2 Flow Rate FiO2 10/15/17 09:09 70 20 150/81 100 Nasal Cannula 4.0 10/15/17 06:11 97.2 Exam Exam Const: [XOXOXO] Head: [Atraumatic] Eyes: [Normal Conjunctiva] ENT: [Normal External Ears, Nose and Mouth.] Neck: [Full range of motion. No meningismus.] Resp: [Clear to auscultation bilaterally] Cardio: [Regular rate and rhythm, no murmurs] Abd: [Soft, non tender, non distended. Normal bowel sounds] Skin: [No petechiae or rashes] Back: [No midline or flank tenderness] Ext: [No cyanosis, or edema] Neuro: [Awake and alert] Psych: [Normal Mood and Affect] Constitutional: alert, oriented, well developed Psych: nl mood/affect, no complaints Head: atraumatic, normocephalic Eyes: EOMI, PERRL, nl conjunctiva, nl lids, nl sclera ENMT: nl external ears & nose, nl lips & teeth, nl nasal mucosa & septum Neck: non-tender, supple Respiratory: clear to auscultation, normal air movement Cardiovascular: nl pulses, regular rate and rhythm Gastrointestinal: nl liver, spleen, non-tender, soft Musculoskeletal: nl extremities to inspection Extremities: normal pulses Neurological: HEALTH PROFESSOR II-XII intact, nl mental status, nl speech, nl strength Skin: nl turgor, No rash or lesions Lymph: nl lymph nodes Labs Result Diagram: 10/15/17 0600 10/15/17 0600 Medications Medications Current Medications Diagnostic Test (Pha) (Accu-Chek) 1 ea 02 XX ; Start 10/16/17 at 02:00 Insulin Glargine (Lantus) 25 unit DAILY@08 SC ; Start 10/16/17 at 08:00 Clopidogrel Bisulfate (plaVIX) 75 mg DAILY PO ; Start 10/16/17 at 09:00 Levetiracetam (Keppra) 500 mg BID PO ; Start 10/15/17 at 10:00 Miscellaneous Information 1 ea NOTE XX ; Start 10/15/17 at 10:30 Glucose (Glutose) 15 gm Q15M PRN PO DECREASED GLUCOSE; Start 10/15/17 at 10:30 Glucose (Glutose) 22.5 gm Q15M PRN PO DECREASED GLUCOSE; Start 10/15/17 at 10: 30 Dextrose (D50w Syringe) 25 ml Q15M PRN IV DECREASED GLUCOSE; Start 10/15/17 at 10:30 Dextrose (D50w Syringe) 50 ml Q15M PRN IV DECREASED GLUCOSE; Start 10/15/17 at 10:30 Glucagon (Glucagen) 1 mg Q15M PRN IM DECREASED GLUCOSE; Start 10/15/17 at 10: 30 Glucose (Glutose) 15 gm Q15M PRN BUCCAL DECREASED GLUCOSE; Start 10/15/17 at 10:30 CATHERINE ALCANTAR MD Oct 15, 2017 10:41
[2017-10-15] MEDS: LEVETIRACETAM 500 MG TAB PO SCH ×2 (12:43→20:49)
[2017-10-15] MEDS: LAMOTRIGINE 25 MG TAB PO SCH (13:05)
[2017-10-15] MEDS: INSULIN ASPART [NOVOLOG] 3 ML PEN SC SCH ×5 (13:55→20:53)
[2017-10-16] VITALS (8 sets, daily range): BP systolic 129–192; BP diastolic 64–87; PULSE 65–70; RESP 16–18
[2017-10-16] MEDS ORDERED: ACCU-CHEK XX SCH (02:00)
[2017-10-16] MEDS ORDERED: INSULIN GLARGINE [LANtus] 3 ML PEN SC SCH (08:00)
[2017-10-16 08:14] LABS: BASOPHILS % 0.3 % (0.0-2.0); EOSINOPHILS # 0.1 10^3/ul (0.0-0.5); EOSINOPHILS % 1.9 % (0.0-7.0); HEMATOCRIT 37.8 % (37.0-47.0); HEMOGLOBIN 12.8 g/dl (12.0-16.0); LYMPHOCYTES # 1.6 10^3/ul (0.8-2.9); LYMPHOCYTES % 24.2 % (15.0-51.0); MEAN CORPUSCULAR HEMOGLOBIN 27.7 pg (29.0-33.0); MEAN CORPUSCULAR HGB CONC 33.9 g/dl (32.0-37.0); MEAN CORPUSCULAR VOLUME 81.8 fl (82.0-101.0); MEAN PLATELET VOLUME 11.9 fl (7.4-10.4); MONOCYTE # 0.5 10^3/ul (0.3-0.9); MONOCYTES % 7.4 % (0.0-11.0); NEUTROPHIL # 4.3 10^3/ul (1.6-7.5); NEUTROPHILS % 65.9 % (39.0-77.0); PLATELET COUNT 257 10^3/UL (140-415); RED BLOOD COUNT 4.62 10^6/ul (4.20-5.40); WHITE BLOOD COUNT 6.5 10^3/ul (4.8-10.8)
[2017-10-16 08:36] LABS: ALBUMIN 2.9 g/dl (3.3-4.9); ALBUMIN/GLOBULIN RATIO 0.85; BILIRUBIN,INDIRECT 0.1 mg/dl (0-1.1); BILIRUBIN,TOTAL 0.1 mg/dl (0.2-1.3); CALCIUM 8.4 mg/dl (8.4-10.2); CREATININE 1.2 mg/dl (0.44-1.00); POTASSIUM 4.6 mmol/L (3.5-5.1); TOTAL PROTEIN 6.3 g/dl (6.1-8.1)
[2017-10-16] MEDS: LEVETIRACETAM 500 MG TAB PO SCH (08:36)
[2017-10-16] MEDS: LAMOTRIGINE 25 MG TAB PO SCH (08:36)
[2017-10-16] MEDS: INSULIN ASPART [NOVOLOG] 3 ML PEN SC SCH ×4 (08:49→13:10)
[2017-10-16] MEDS ORDERED: CLOPIDOGREL 75 MG TAB PO SCH (09:00)
[2017-10-16] MEDS ORDERED: MAGNESIUM HYDROXIDE 30ML CUP PO PRN (12:00)
[2017-10-16] MEDS ORDERED: AMLODIPINE 5 MG TAB PO SCH (12:30)
[2017-10-16] MEDS ORDERED: LAMO100T83 PO (14:40)
--- NOTE | 2017-10-16 14:41 | PDOCDIS ---
Discharge Instructions DIAGNOSIS Discharge Diagnosis Hyperglycemia CONDITION Patient Condition: Fair HOME CARE INSTRUCTIONS: Diet Instructions: Reduced CalorieSpecial Diet: 1800 ADA FOLLOW UP/APPOINTMENTS Follow-up Plan Take your medications as prescribed It is very improtant for you to continue care with your neurologist and diabetes doctor CATHERINE ALCANTAR MD Oct 16, 2017 14:41
--- NOTE | 2017-10-16 14:42 | DS ---
Date/Time of Note Date/Time of Note DATE: 10/16/17 TIME: 14:42 Discharge Summary Admission/Discharge Info Admit Date/Time Oct 15, 2017 at 07:41 Discharge Date/Time Discharge Diagnosis Hyperglycemia Hx of Present Illness 47 yo female wiht h/o depression, DMII with poor control, CAD who presents with apparent seizure Patient well know to me from her previous admission with simliary presentation. She had hyperglycemia to 500s and apparent seizrues which over the course of her hosptialization, it became clear these were in fact pseudoseizures/ malingering. Patient was noted numerous times by myself and nursing staff dramatizing arm shaking movements while fully alert and requesting benzos. Underwent EEG and MRI last admission, both of which were normal. It is unclear what has happened since discharge through today. Patient says she lives by herself and is compliant with her medications. She is unable to provide a history on why she is here, though I saw her after benzos given. Apparently she was witnessed having arm shaking concerning for seizures x 3 in the hosptial waiting room and was treated with ativan for seizures. Currently she is somnulent but denies any physical complaints On monitor in ED, she had a run of 5 beats of NSVT (this is not torsades) Hospital Course 47 yo female with questionable history of seizures vs pseudoseizures who presents with hyperglycemia and possible seizure vs malingering Reported seizure: - Given my past history with the pateint and recently normal EEG I am suspicious this was a pseudoseizure rather than a true seizure. Will continue the patient on her home AEDs (lamictal and keppra) - Monitor for recurrence - Unless clearly having tonic-clonic seizure we will avoid benzos, particularly if she requests them at the time DMII with hyperglycemia: - Strongly suspect this is from medication nonadherence - We will control sugars with basal/bolus insulin ERIBERTO: - Likely prerenal from osmotic diuresis 2/2 hyperglycemia, will treat with IVF CAD: - Continue statin and plavix NSVT: - HD stable, correct electrolytes Likely discharge tomorrow COURSE: The patient did not have any evidence of true seizure activity. She was seen dramatizing arm movements. Her sugars were controlled with insulin. She was continued on her home AEDs. She was encouraged to follow up with her neurologist and her primary care doctor Home Meds Active Scripts Pantoprazole* (Pantoprazole*) 40 Mg Tablet., 40 MG PO DAILY@06 for 10 Days, # 10 Prov:CARLEEN CAMARENA MD 01/13/17 Metoclopramide Hcl* (Metoclopramide Hcl*) 5 Mg Tablet, 5 MG PO TID for 7 Days, # 20 TAB Prov:CARLEEN CAMARENA MD 01/13/17 Levetiracetam* (Keppra*) 500 Mg Tablet, 500 MG PO BID for 14 Days, #30 TAB Prov:CARLEEN CAMARENA MD 01/13/17 Ibuprofen* (Ibuprofen*) 600 Mg Tablet, 600 MG PO Q6H Y for MODERATE PAIN LEVEL 4 -6 for 14 Days, #30 TAB Prov:CARLEEN CAMARENA MD 01/13/17 Insulin Aspart* (Novolog Insulin Pen*) 100 Unit/Ml Soln, 5 UNIT SC WITH MEALS for 30 Days, 1 Refill Prov:DWIGHT KNIGHT 09/20/15 Metformin Hcl (Glucophage) 500 Mg Tab, 1000 MG PO BID WITH MEALS for 30 Days, 1 Refill Prov:DWIGHT KNIGHT Reji 09/20/15 Sitagliptin* (Januvia*) 50 Mg Tab, 100 MG PO DAILY for 30 Days Prov:DWIGHT KNIGHT 09/19/15 Insulin Glargine* (Lantus*) 100 Unit/Ml Soln, 27 UNIT SC DAILY for 30 Days, 1 Refill Prov:DWIGHT KNIGHT Reji 09/19/15 Fenofibrate Nanocrystallized* (Tricor*) 145 Mg Tab, 145 MG PO DAILY for 30 Days Prov:DWIGHT KNIGHT 02/23/15 Rosuvastatin Calcium* (Crestor*) 10 Mg Tablet, 20 MG PO HS for 30 Days, TAB Prov:DWIGHT KNIGHT 02/23/15 Reported Medications Amlodipine-Olmesartan (Scooter) 10-40 Mg Tablet, 1 TAB PO DAILY, TAB 02/22/15 Aspirin Ec (Aspir 81) 81 Mg Tablet., 81 MG PO DAILY, TAB 02/22/15 Clopidogrel Bisulfate (Clopidogrel) 75 Mg Tablet, 75 MG PO DAILY, TAB 02/22/15 Follow-up Plan Take your medications as prescribed It is very improtant for you to continue care with your neurologist and diabetes doctor Primary Care Provider Fabián Lester Pending Labs Laboratory Tests Test 10/15/17 17:39 10/15/17 20:52 10/16/17 07:27 10/16/17 08:03 Bedside Glucose 177mg/dL (70-220) 164mg/dL (70-220) 207mg/dL (70-220) White Blood Count 6.510^3/ul (4.8-10.8) Red Blood Count 4.6210^6/ul (4.20-5.40) Hemoglobin 12.8g/dl (12.0-16.0) Hematocrit 37.8% (37.0-47.0) Mean Corpuscular Volume 81.8fl (82.0-101.0) Mean Corpuscular Hemoglobin 27.7pg (29.0-33.0) Mean Corpuscular Hemoglobin Concent 33.9g/dl (32.0-37.0) Red Cell Distribution Width 12.0% (11.5-14.5) Platelet Count 02151^3/UL (140-415) Mean Platelet Volume 11.9fl (7.4-10.4) Neutrophils % 65.9% (39.0-77.0) Lymphocytes % 24.2% (15.0-51.0) Monocytes % 7.4% (0.0-11.0) Eosinophils % 1.9% (0.0-7.0) Basophils % 0.3% (0.0-2.0) Nucleated Red Blood Cells % 0.0/100WBC (0.0-0.0) Neutrophils # 4.310^3/ul (1.6-7.5) Lymphocytes # 1.610^3/ul (0.8-2.9) Monocytes # 0.510^3/ul (0.3-0.9) Eosinophils # 0.110^3/ul (0.0-0.5) Basophils # 0.010^3/ul (0.0-0.1) Nucleated Red Blood Cells # 0.010^3/ul (0.0-0.0) Sodium Level 138mmol/L (135-144) Potassium Level 4.6mmol/L (3.5-5.1) Chloride Level 107mmol/L (97-110) Carbon Dioxide Level 24mmol/L (21-31) Anion Gap 12 (8-16) Blood Urea Nitrogen 25mg/dl (7-20) Creatinine 1.20mg/dl (0.44-1.00) Glucose Level 228mg/dl (70-220) Calcium Level 8.4mg/dl (8.4-10.2) Total Bilirubin 0.1mg/dl (0.2-1.3) Direct Bilirubin 0.00mg/dl (0.00-0.20) Indirect Bilirubin 0.1mg/dl (0-1.1) Aspartate Amino Transf (AST/SGOT) 15IU/L (15-46) Alanine Aminotransferase (ALT/SGPT) 24IU/L (13-69) Alkaline Phosphatase 123IU/L (42-121) Total Protein 6.3g/dl (6.1-8.1) Albumin 2.9g/dl (3.3-4.9) Globulin 3.40g/dl (1.3-3.2) Albumin/Globulin Ratio 0.85 Test 10/16/17 11:31 Bedside Glucose 233mg/dL (70-220) CATHERINE ALCANTAR MD Oct 16, 2017 14:42
== END 2017-10-16 15:37 | disposition home or self-care (01) | DRG 638 ==
LOC: E/R 05:43 → MS4 07:41 → UNDOADMIN 11:20
PROVIDERS: ADMIT Internal Medicine; ATTEND Internal Medicine
DX: E11.65 Type 2 diabetes mellitus with hyperglycemia (principal); N17.9 Acute kidney failure, unspecified; F32.9 Major depressive disorder, single episode, unspecified; G40.901 Epilepsy, unspecified, not intractable, with status epilepticus; I25.10 Atherosclerotic heart disease of native coronary artery without angina pectoris; Z79.82 Long term (current) use of aspirin; Z79.4 Long term (current) use of insulin
CPT/HCPCS: 36415; 70450; 80048; 80053; 82962; 83735; 84439; 84443; 84484; 85025; 85610; 85730; 96374; 96375; J1815; J2060; J3475; J7030

== ENCOUNTER 2017-10-18 02:45 | Emergency (ER) | payer BC ==
[~2017-10-18] VITALS: Ht 167.6 cm; Wt 98.1 kg
[~2017-10-18 02:45] MED LIST changes: -IBUP-1542 PO; +LAMO100T83 PO; -LEVE-5 PO
[2017-10-18 02:52] VITALS: Ht 167.6 cm; Wt 98.1 kg
[2017-10-18] MEDS ORDERED: LORAZEPAM 2 MG INJ IV STA (02:58)
[2017-10-18] MEDS ORDERED: LEVETIRACETAM 1000 MG (PMX) 100 ML IVPB STA (02:58)
[2017-10-18 04:08] LABS: BASOPHILS % 0.5 % (0.0-2.0); EOSINOPHILS # 0.1 10^3/ul (0.0-0.5); EOSINOPHILS % 2.1 % (0.0-7.0); HEMATOCRIT 40.6 % (37.0-47.0); HEMOGLOBIN 13.9 g/dl (12.0-16.0); LYMPHOCYTES # 1.7 10^3/ul (0.8-2.9); LYMPHOCYTES % 26.3 % (15.0-51.0); MEAN CORPUSCULAR HEMOGLOBIN 27.8 pg (29.0-33.0); MEAN CORPUSCULAR HGB CONC 34.2 g/dl (32.0-37.0); MEAN CORPUSCULAR VOLUME 81.2 fl (82.0-101.0); MEAN PLATELET VOLUME 11.6 fl (7.4-10.4); MONOCYTE # 0.6 10^3/ul (0.3-0.9); MONOCYTES % 8.9 % (0.0-11.0); NEUTROPHIL # 4.1 10^3/ul (1.6-7.5); NEUTROPHILS % 61.7 % (39.0-77.0); PLATELET COUNT 316 10^3/UL (140-415); RED CELL DISTRIBUTION WIDTH 11.9 % (11.5-14.5); WHITE BLOOD COUNT 6.6 10^3/ul (4.8-10.8)
[2017-10-18 04:27] LABS: ALBUMIN 3.4 g/dl (3.3-4.9); ALBUMIN/GLOBULIN RATIO 0.85; BILIRUBIN,INDIRECT 0.1 mg/dl (0-1.1); BILIRUBIN,TOTAL 0.1 mg/dl (0.2-1.3); CALCIUM 8.8 mg/dl (8.4-10.2); CREATININE 1.36 mg/dl (0.44-1.00); POTASSIUM 4.2 mmol/L (3.5-5.1); TOTAL PROTEIN 7.4 g/dl (6.1-8.1)
[2017-10-18] MEDS ORDERED: HYDROCODONE/APAP (10/325) TAB PO ONE (04:30)
[2017-10-18 04:38] LABS: TROPONIN-I 0.021 ng/ml (0.00-0.12)
[2017-10-18 05:30] VITALS: TEMP 98.3
--- NOTE | 2017-10-18 05:55 | ERD ---
ER Documentation Chief Complaint Chief Complaint active seizures at home and triage, fell at home hit head, facial numbness HPI 39-year-old female with active seizures at home in triage. She says she has some facial numbness. Patient has been a multiple times for this in the past. Review medical records, patient seems to have evidence of pseudoseizure malingering. No tongue biting or incontinence noted. No other current issues. ROS All systems reviewed and are negative except as per history of present illness. Medications Home Meds Active Scripts Lamotrigine* (Lamictal*) 100 Mg Tablet, 100 MG PO DAILY for 60 Days, TAB Prov:CATHERINE ALCANTAR MD 10/16/17 Pantoprazole* (Pantoprazole*) 40 Mg Tablet.dr, 40 MG PO DAILY@06 for 10 Days, # 10 Prov:CARLEEN CAMARENA MD 01/13/17 Metoclopramide Hcl* (Metoclopramide Hcl*) 5 Mg Tablet, 5 MG PO TID for 7 Days, # 20 TAB Prov:CARLEEN CAMARENA MD 01/13/17 Insulin Aspart* (Novolog Insulin Pen*) 100 Unit/Ml Soln, 5 UNIT SC WITH MEALS for 30 Days, 1 Refill Prov:DWIGHT KNIGHT. 09/20/15 Metformin Hcl (Glucophage) 500 Mg Tab, 1000 MG PO BID WITH MEALS for 30 Days, 1 Refill Prov:DWIGHT KNIGHT. 09/20/15 Sitagliptin* (Januvia*) 50 Mg Tab, 100 MG PO DAILY for 30 Days Prov:DWIGHT KNIGHT 09/19/15 Insulin Glargine* (Lantus*) 100 Unit/Ml Soln, 27 UNIT SC DAILY for 30 Days, 1 Refill Prov:DWIGHT KNIGHT. 09/19/15 Fenofibrate Nanocrystallized* (Tricor*) 145 Mg Tab, 145 MG PO DAILY for 30 Days Prov:DWIGHT KNIGHT. 02/23/15 Rosuvastatin Calcium* (Crestor*) 10 Mg Tablet, 20 MG PO HS for 30 Days, TAB Prov:DWIGHT KNIGHT. 02/23/15 Reported Medications Amlodipine-Olmesartan (Scooter) 10-40 Mg Tablet, 1 TAB PO DAILY, TAB 02/22/15 Aspirin Ec (Aspir 81) 81 Mg Tablet.dr, 81 MG PO DAILY, TAB 02/22/15 Clopidogrel Bisulfate (Clopidogrel) 75 Mg Tablet, 75 MG PO DAILY, TAB 02/22/15 Discontinued Scripts Levetiracetam* (Keppra*) 500 Mg Tablet, 500 MG PO BID for 14 Days, #30 TAB Prov:CARLEEN CAMARENA MD 01/13/17 Ibuprofen* (Ibuprofen*) 600 Mg Tablet, 600 MG PO Q6H Y for MODERATE PAIN LEVEL 4 -6 for 14 Days, #30 TAB Prov:CARLEEN CAMARENA MD 01/13/17 Allergies Allergies: Coded Allergies: Penicillins (Verified Allergy, Unknown, 07/17/17) erythromycin base (Unverified Allergy, Unknown, 07/17/17) PMhx/Soc History of Surgery: Yes ([facility]2015) Anesthesia Reaction: No Hx Neurological Disorder: Yes (SEIZURES) Hx Respiratory Disorders: Yes (ASTHMA) Hx Cardiac Disorders: Yes ([facility]2015, CHF) Hx Psychiatric Problems: No Hx Miscellaneous Medical Probl: No Hx Alcohol Use: Yes Hx Substance Use: No Hx Tobacco Use: No Smoking Status: Never smoker Physical Exam Vitals Vital Signs Date Time Temp Pulse Resp B/P Pulse Ox O2 Delivery O2 Flow Rate FiO2 10/18/17 03:15 98.3 71 14 154/75 99 Room Air 10/18/17 02:52 98.3 77 20 168/81 99 Physical Exam Const: [] Head: Atraumatic Eyes: Normal Conjunctiva ENT: Normal External Ears, Nose and Mouth. Neck: Full range of motion..~ No meningismus. Resp: Clear to auscultation bilaterally Cardio: Regular rate and rhythm, no murmurs Abd: Soft, non tender, non distended. Normal bowel sounds Skin: No petechiae or rashes Back: No midline or flank tenderness Ext: No cyanosis, or edema Neur: Awake and alert Psych: Normal Mood and Affect Result Diagram: 10/18/1733410/18/17334 Results 24 hrs Laboratory Tests Test 10/18/17 03:04 10/18/17 03:35 Bedside Glucose 131mg/dL White Blood Count 6.610^3/ul Red Blood Count 5.0010^6/ul Hemoglobin 13.9g/dl Hematocrit 40.6% Mean Corpuscular Volume 81.2fl Mean Corpuscular Hemoglobin 27.8pg Mean Corpuscular Hemoglobin Concent 34.2g/dl Red Cell Distribution Width 11.9% Platelet Count 17892^3/UL Mean Platelet Volume 11.6fl Neutrophils % 61.7% Lymphocytes % 26.3% Monocytes % 8.9% Eosinophils % 2.1% Basophils % 0.5% Nucleated Red Blood Cells % 0.0/100WBC Neutrophils # 4.110^3/ul Lymphocytes # 1.710^3/ul Monocytes # 0.610^3/ul Eosinophils # 0.110^3/ul Basophils # 0.010^3/ul Nucleated Red Blood Cells # 0.010^3/ul Sodium Level 136mmol/L Potassium Level 4.2mmol/L Chloride Level 104mmol/L Carbon Dioxide Level 26mmol/L Anion Gap 10 Blood Urea Nitrogen 25mg/dl Creatinine 1.36mg/dl Glucose Level 140mg/dl Calcium Level 8.8mg/dl Total Bilirubin 0.1mg/dl Direct Bilirubin 0.00mg/dl Indirect Bilirubin 0.1mg/dl Aspartate Amino Transf (AST/SGOT) 15IU/L Alanine Aminotransferase (ALT/SGPT) 17IU/L Alkaline Phosphatase 149IU/L Troponin I 0.021ng/ml Total Protein 7.4g/dl Albumin 3.4g/dl Globulin 4.00g/dl Albumin/Globulin Ratio 0.85 Current Medications Medications (Trade) Dose Ordered Sig/Shelly Route PRN Reason Start Time Stop Time Status Last Admin Dose Admin Lorazepam 1 mg 1 mg ONCE STAT IV 10/18/17 02:58 10/18/17 02:59 DC 10/18/17 02:58 Levetiracetam (Keppra 1,000mg/ 100ml (Pmx)) 100 ml @ 400 mls/hr ONCE STAT IVPB 10/18/17 02:58 10/18/17 03:10 DC Acetaminophen/ Hydrocodone Bitart ([place] (10325)) 1 tab ONCE ONCE PO 10/18/17 04:30 10/18/17 04:31 DC 10/18/17 04:15 Procedures/MDM Medical decision-makin-year-old female with likely pseudoseizures. At no point the patient never lose consciousness during these "seizures". Reviewing the medical record, it seems that the patient has had this [place] in the past. Given the information in hand and the review of the medical record, I do feel the patient is malingering and pseudoseizures with some component of drug-seeking behavior. At this point clinically stable. Will be discharged home. Asked to follow-up PCP. Departure Diagnosis: Primary Impression: Pseudoseizure Additional Impression: History of pseudoseizure Condition: Stable ANAHY TORREZ Oct 18, 2017 05:55
[2017-10-18 07:00] VITALS: BP 155/66; PULSE 76; RESP 19
== END 2017-10-18 07:29 | disposition home or self-care (01) ==
LOC: E/R 02:45
DX: F44.5 Conversion disorder with seizures or convulsions (principal); J45.909 Unspecified asthma, uncomplicated; I50.9 Heart failure, unspecified; E11.9 Type 2 diabetes mellitus without complications; R07.9 Chest pain, unspecified; Z79.82 Long term (current) use of aspirin; Z79.4 Long term (current) use of insulin; Z79.84 Long term (current) use of oral hypoglycemic drugs; Z79.01 Long term (current) use of anticoagulants
CPT/HCPCS: 36415; 80053; 82962; 84484; 85025; 93005; 96374; J2060; Z7502; Z7610; J1953

== ENCOUNTER 2018-06-18 02:08 | Emergency (ER) | END 2018-06-18 07:04 | disposition home or self-care (01) ==

== ENCOUNTER 2019-03-16 14:44 | Emergency (ER) | payer BC ==
[~2019-03-16] VITALS: Wt 92.0 kg
[~2019-03-16 14:44] MED LIST changes: -CRES10 PO; +IBUP-1542 PO; -METO5TAB11 PO; +METO5TAB2 PO; +RSV10T PO
[2019-03-16] MEDS ORDERED: IBUPROFEN 600 MG TAB PO ONE (17:00)
[2019-03-16 19:03] VITALS: BP 186/72; PULSE 82; RESP 16
[2019-03-16] MEDS ORDERED: IBUP-1542 PO (19:05)
--- NOTE | 2019-03-16 19:52 | ERD ---
ER Documentation Chief Complaint Chief Complaint SEIZURE TODAY WITH R KNEE PAIN HPI Patient is a 48-year-old female with seizures and diabetes who presents with a seizure. She said that at 10:15 AM she had a seizure and she cannot remember what happened after that. She has right-sided knee pain which started after the seizure. She took ibuprofen 200 mg. She said that she did take her Lamictal today. Upon review of old medical records the patient does have 11 visits since 2007 for various complaints including pseudoseizures. Her primary doctor is Dr. Fabián Lester. ROS All systems reviewed and are negative except as per history of present illness. Medications Home Meds Active Scripts Ibuprofen* (Motrin*) 600 Mg Tab, 600 MG PO Q6H PRN for PAIN AND OR ELEVATED T EMP, #30 TAB Prov:NURA MCCOLLUM MD 03/16/19 Ibuprofen* (Motrin*) 600 Mg Tab, 600 MG PO Q8 PRN for PAIN AND/OR INFLAMMATION, #30 TAB Prov:KAREN HALEY MD 06/18/18 Lamotrigine* (Lamictal*) 100 Mg Tablet, 100 MG PO DAILY for 60 Days, TAB Prov:CATHERINE ALCANTAR MD 10/16/17 Pantoprazole* (Pantoprazole*) 40 Mg Tablet., 40 MG PO DAILY@06 for 10 Days, #10 Prov:CARLEEN CAMARENA MD 01/13/17 Metoclopramide Hcl* (Metoclopramide Hcl*) 5 Mg Tablet, 5 MG PO TID for 7 Days, #20 TAB Prov:CARLEEN CAMARENA MD 01/13/17 Insulin Aspart* (Novolog Insulin Pen*) 100 Unit/Ml Soln, 5 UNIT SC WITH MEALS for 30 Days, 1 Refill Prov:DWIGHT KNIGHT 09/20/15 Metformin Hcl (Glucophage) 500 Mg Tab, 1000 MG PO BID WITH MEALS for 30 Days, 1 Refill Prov:DWIGHT KNIGHT. 09/20/15 Sitagliptin* (Januvia*) 50 Mg Tab, 100 MG PO DAILY for 30 Days Prov:DWIGHT KNIGHT 09/19/15 Insulin Glargine* (Lantus*) 100 Unit/Ml Soln, 27 UNIT SC DAILY for 30 Days, 1 Refill Prov:DWIGHT KNIGHT 09/19/15 Fenofibrate Nanocrystallized* (Tricor*) 145 Mg Tab, 145 MG PO DAILY for 30 Days Prov:DWIGHT KNIGHT 02/23/15 Rosuvastatin Calcium* (Crestor*) 10 Mg Tablet, 20 MG PO HS for 30 Days, TAB Prov:DWIGHT KNIGHT 02/23/15 Reported Medications Amlodipine-Olmesartan (Scooter) 10-40 Mg Tablet, 1 TAB PO DAILY, TAB 02/22/15 Aspirin Ec (Aspir 81) 81 Mg Tablet.dr, 81 MG PO DAILY, TAB 02/22/15 Clopidogrel Bisulfate (Clopidogrel) 75 Mg Tablet, 75 MG PO DAILY, TAB 02/22/15 Allergies Allergies: Coded Allergies: Penicillins (Verified Allergy, Unknown, 04/14/18) erythromycin base (Unverified Allergy, Unknown, 04/14/18) PMhx/Soc History of Surgery: Yes ([facility]) Anesthesia Reaction: No Hx Neurological Disorder: Yes (SEIZURES) Hx Respiratory Disorders: Yes (ASTHMA) Hx Cardiac Disorders: Yes (2015, CHF, htn, cholesterol) Hx Psychiatric Problems: No Hx Miscellaneous Medical Probl: Yes (DM) Hx Alcohol Use: No Hx Substance Use: No Hx Tobacco Use: No Smoking Status: Never smoker FmHx Family History: diabetes Physical Exam Vitals Vital Signs Date Temp Pulse Resp B/P (MAP) Pulse Ox O2 O2 Flow FiO2 Time Delivery Rate 03/16/19 82 16 186/72 100 Room Air 19:03 (110) 03/16/19 81 18 182/73 100 Room Air 18:21 (109) 03/16/19 98.0 85 18 177/84 99 14:46 (115) Physical Exam Const: No acute distress Head: Atraumatic Eyes: Normal Conjunctiva ENT: Normal External Ears, Nose and Mouth. Neck: Full range of motion. No meningismus. Resp: Clear to auscultation bilaterally Cardio: Regular rate and rhythm, no murmurs Abd: Soft, non tender, non distended. Normal bowel sounds Skin: No petechiae or rashes Back: No midline or flank tenderness Ext: Right leg pain with palpation of the thigh without signs of swelling or deformity Neur: Awake and alert Psych: Normal Mood and Affect Results 24 hrs Laboratory Tests Test 03/16/19 18:02 POC Beta HCG, Qualitative NEGATIVE Current Medications Medications Dose Sig/Shelly Start Time Status Last (Trade) Ordered Route PRN Stop Time Admin Dose Reason Admin Ibuprofen 600 mg ONCE ONCE 03/16/19 DC 03/16/19 (Motrin) PO 17:00 16:46 03/16/19 17:01 Procedures/MDM X-ray Femur 5V Interpreted by me: Bones: No fracture Joints: No dislocation Foreign body: None Patient is a 48-year-old female presents with right leg pain after seizure. I believe she likely had a pseudoseizure as she had what she called a seizure in the emergency department which did not seem to be a true tonic-clonic seizure and she had no postictal. And she was blinking with the snapping fingers. Patient will be discharged with a prescription for ibuprofen. She can return for any worsening symptoms. I doubt fracture or dislocation. Departure Diagnosis: Primary Impression: Leg pain Laterality: right Qualified Codes: M79.604 - Pain in right leg Additional Impression: Pseudoseizure Condition: Fair Patient Instructions: Possible Causes of Low Back or Leg Pain Additional Instructions: Call your primary care doctor TOMORROW for an appointment during the next 1-2 days.See the doctor sooner or return here if your condition worsens before your appointment time. NURA MCCOLLUM MD Mar 16, 2019 19:52
== END 2019-03-16 19:29 | disposition home or self-care (01) ==
LOC: E/R 14:44
DX: M79.604 Pain in right leg (principal); R56.9 Unspecified convulsions; J45.909 Unspecified asthma, uncomplicated; I50.9 Heart failure, unspecified; I11.0 Hypertensive heart disease with heart failure; E11.9 Type 2 diabetes mellitus without complications; Z79.01 Long term (current) use of anticoagulants; Z79.4 Long term (current) use of insulin; Z79.82 Long term (current) use of aspirin
CPT/HCPCS: 73550; 81025; Z7502; Z7610